=== PATIENT | male | born 1930 | race Caucasian/White ===

== ENCOUNTER 2016-03-17 17:15 | Inpatient (IN) | payer OTHER, BC ==
--- NOTE | 2016-03-17 18:30 | PDOC ---
History of Present Illness - General History Source: Patient, Family Exam Limitations: No Limitations - History of Present Illness Initial Comments: 03/17/16 18:31 Patient is an 85 year old male with significant PMH of Abdominal adhesions, hernias, AAA repair with CABG, Colectomy, Prostate Cancer(status post seating & Green Light Procedure), AAA repair, Lower Esophageal Spasm, GOUT, Artificial Renal Sphincter who presents to ED with cough for 1 week. Patient states he had a cough for last month, was prescribed Clarithromycin several weeks ago by his PCP and improved. Cough has returned this week accompanied by whitish-yellow sputum production in last 2-3 days. Patient notes some mild chest pain exacerbated by heavy fits of coughing and musculoskeletal movement. He has sick contacts at home so decided to go to urgent care today where they noted a bilateral pneumonia and told patient to come to ED. He is currently on Macrobid for a UTI, as per Dr Robles. He denies GI symptoms including diarrhea, constipation, nause, vomiting. <Dar Herbert - Last Filed: 03/17/16 18:47> <Munir Villa - Last Filed: 03/17/16 20:10> - General Chief Complaint: Respiratory Stated Complaint: PCP SENT/PNEUMONIA Time Seen by Provider: 03/17/16 17:45 Past History - Travel Traveled outside of the country in the last 30 days: No Close contact w/someone who was outside of country & ill: No - Past Medical History Anemia: No Asthma: No Cancer: Yes (prostate, colon) Cardiac Disorders: Yes (BYPASS SURGERIES, [place]) CVA: No COPD: No CHF: No Dementia: No Diabetes: No GI Disorders: No Disorders: No HTN: No Hypercholesterolemia: No Liver Disease: No Suicide Attempt (Hx): No Seizures: No Thyroid Disease: No - Surgical History Abdominal Surgery: No Appendectomy: No Cardiac Surgery: Yes (AAA, BYPASS SURGERY) Cholecystectomy: No Lung Surgery: No Neurologic Surgery: No Orthopedic Surgery: No - Immunization History Td Vaccination: Yes TDAP Vaccination: Yes Immunization Up to Date: Yes - Psycho/Social/Smoking Cessation Hx Anxiety: No Suicidal Ideation: No Smoking Status: No Smoking History: Former smoker Have you smoked in the past 12 months: No Number of Cigarettes Smoked Daily: 0 If you are a former smoker, when did you quit?: 35YRS Information on smoking cessation initiated: No Hx Alcohol Use: No Drug/Substance Use Hx: No Substance Use Type: None Hx Substance Use Treatment: No <Dar Herbert - Last Filed: 03/17/16 18:47> <Munir Villa - Last Filed: 03/17/16 20:10> - Past Medical History Allergies/Adverse Reactions: Allergies Allergy/AdvReac Type Severity Reaction Status Date / Time beeswax Allergy Severe Verified 03/17/16 17:22 cephalexin monohydrate Allergy Severe Verified 03/17/16 17:22 [From Keflex] honey Allergy Severe Verified 03/17/16 17:22 Penicillins Allergy Severe Verified 03/17/16 17:22 tetracycline [Tetracycline] Allergy Severe Verified 03/17/16 17:22 ondansetron HCl AdvReac Unknown Verified 03/17/16 17:22 [From Zofran (as hydrochloride)] Home Medications: Ambulatory Orders Febuxostat [Uloric -] 40 mg PO DAILY #0 11/03/12 Pantoprazole Sodium [Protonix -] 40 mg PO DAILY #0 tablet.ec 11/03/12 Aspirin [ASA -] 325 mg PO DAILY 06/24/13 Simvastatin [Zocor -] 40 mg PO DAILY 06/24/13 Propylene Glycol [Systane Balance] 2 drop OU BID 06/14/14 Cilostazol [Pletal -] 100 mg PO BID #30 tablet 06/17/14 Acetaminophen [Tylenol .Regular Strength -] 650 mg PO Q4H PRN #0 tablet Ascorbic Acid [Vitamin C -] 500 mg PO DAILY tablet 07/20/14 Carvedilol [Coreg] 12.5 mg PO DAILY 08/26/14 Cetirizine HCl [Zyrtec -] 10 mg PO DAILY 08/26/14 Fesoterodine Fumarate [Toviaz] 8 mg PO DAILY 08/26/14 Cranberry Fruit Extract [Theracran Hp For Kids] 50 mg PO DAILY 03/17/16 Ferrous Sulfate 325 mg PO DAILY 03/17/16 Review of Systems - Review of Systems Able to Perform ROS?: Yes Is the patient limited Georgian proficient: No Constitutional: Yes: Malaise Respiratory: Yes: Shortness of Breath, Productive cough <Dar Herbert - Last Filed: 03/17/16 18:47> *Physical Exam - Vital Signs Last Vital Signs Temp Pulse Resp BP Pulse Ox 98 F 80 19 128/49 95 03/17/16 17:22 03/17/16 17:22 03/17/16 17:22 03/17/16 17:22 03/17/16 17:22 - Physical Exam General Appearance: Yes: Nourished, Appropriately Dressed HEENT: positive: EOMI, RUBEN, Normal ENT Inspection Neck: positive: Trachea midline, Normal Thyroid, Supple Respiratory/Chest: positive: Other (Bilateral basal crackles noted, some pleuritic chest pain ) Cardiovascular: positive: Regular Rhythm, Regular Rate, S1, S2 <Dar Herbert - Last Filed: 03/17/16 18:47> - Vital Signs Last Vital Signs Temp Pulse Resp BP Pulse Ox 98 F 80 19 128/49 95 03/17/16 17:22 03/17/16 17:22 03/17/16 17:22 03/17/16 17:22 03/17/16 17:22 <Munir Villa - Last Filed: 03/17/16 20:10> ED Treatment Course - LABORATORY CBC & Chemistry Diagram: 03/17/16 18:45 03/17/16 18:45 - ADDITIONAL ORDERS Additional order review: 03/17/16 18:45 RBC 3.34 L MCV 86.7 MCHC 32.4 RDW 17.4 H MPV 7.8 Neutrophils % 77.9 Lymphocytes % 10.3 Monocytes % 5.5 Eosinophils % 6.0 H Basophils % 0.3 <Munir Villa - Last Filed: 03/17/16 20:10> Medical Decision Making - Medical Decision Making 03/17/16 18:47 Ordered CBC, CMP, Blood cultures, influenza swab, & CXR to check for infiltrate. Will also order cardiac profile & EKG as patient states he has occasional chest pain during coughing fits. <Dar Herbert - Last Filed: 03/17/16 18:47> *DC/Admit/Observation/Transfer <Dar Herbert - Last Filed: 03/17/16 18:47> - Discharge Dispostion Admit: Yes <Munir Villa - Last Filed: 03/17/16 20:10> Diagnosis at time of Disposition: Pneumonia Qualifiers: Pneumonia type: due to unspecified organism Laterality: unspecified laterality Lung location: unspecified part of lung Qualified Code(s): J18.9 - Pneumonia, unspecified organism - Discharge Dispostion Condition at time of disposition: Fair
[2016-03-17 19:28] LABS: BASOPHIL 0.3 % (0-2.0); MCH 28.1 pg (25.7-33.7); MCHC 32.4 g/dl (32.0-35.9); MEAN CELL VOLUME 86.7 fl (80-96); MEAN PLT VOLUME 7.8 fl (7.5-11.1); NEUTROPHILS 77.9 % (42.8-82.8); PLATELET COUNT 197 K/MM3 (134-434); RDW 17.4 % (11.9-15.9); WHITE BLOOD COUNT 6.9 K/mm3 (4.0-10.0)
[2016-03-17 19:49] LABS: ALBUMIN 2.7 g/dl (3.4-5.0); BILIRUBIN,TOTAL 0.4 mg/dL (0.2-1.0); CALCIUM 7.7 mg/dL (8.5-10.1); CREATININE 1.4 mg/dL (0.7-1.3); TOT PROT 6.2 g/dl (6.4-8.2)
[2016-03-17 19:54] LABS: TROPONIN I < 0.02 ng/ml (0.00-0.05)
[2016-03-17] MEDS ORDERED: ALBUTEROL SO4 0.083% IH SOL 2.5 MG/3 ML VIAL.NEB. NEB ONE ×2 (19:58→20:12)
[2016-03-17] MEDS ORDERED: LEVOFLOXACIN 500 MG IVPB 100 ML IVPB ONE ×2 (19:58→20:12)
--- NOTE | 2016-03-17 20:06 | PDOC ---
Attending Attestation - Resident Resident Name: Dar Herbert - ED Attending Attestation I have performed the following: I have examined & evaluated the patient, The case was reviewed & discussed with the resident, I agree w/resident's findings & plan, Exceptions are as noted - HPI HPI: 03/17/16 20:05 85-year-old male with history of colon cancer and hypertension presents with increasing shortness of breath, with cough productive of white to yellow sputum that is increased in severity over the past several days despite previous treatment with Zithromax. - Physicial Exam PE: 03/17/16 20:05 Patient is awake and alert, nontoxic appearing, with bibasilar rails and mild intermittent rhonchi. Patient's afebrile and normotensive with oxygen saturation of 96% on room air. - Medical Decision Making 03/17/16 20:05 Patient is an 85-year-old male with bilateral infiltrates on chest x-ray mild congestive consistent with bilateral community-acquired pneumonia. We'll administer Levaquin (patient is an ALLERGIC) we'll administer albuterol nebulizers. Will admit.
[2016-03-17] MEDS ORDERED: SODIUM CHLORIDE 500 ML IV STA (20:18)
[2016-03-17] MEDS ORDERED: ACETAMINOPHEN 325 MG TABLET (FP) PO PRN (20:33)
[2016-03-17] MEDS ORDERED: ALBUTEROL SO4 0.083% IH SOL 2.5 MG/3 ML VIAL.NEB. NEB PRN (20:35)
[2016-03-17] MEDS ORDERED: HEPARIN NA (PORCINE) 5,000 UNITS/ML 1ML VIAL ONE (22:15)
[2016-03-17] MEDS: HEPARIN NA (PORCINE) 5,000 UNITS/ML 1ML VIAL SQ SCH (22:44)
[2016-03-18 00:52] VITALS: BMI 29.6
[2016-03-18] MEDS: ARTIFICIAL TEARS (POLYVINYL ALCOHOL 1.4%) OPTH DROPS OU SCH ×3 (01:02→21:30)
--- NOTE | 2016-03-18 08:27 | HP ---
Admitting History and Physical - Admission History of Present Illness: 85 year old male with significant PMH of Abdominal adhesions, hernias, AAA repair with CABG, Colectomy, Prostate Cancer(status post seating & Green Light Procedure), AAA repair, Lower Esophageal Spasm, GOUT, Artificial Renal Sphincter who presents to ED with cough for 1 week. . Patient notes some mild chest pain exacerbated by heavy fits of coughing and musculoskeletal movement. He has sick contacts at home so decided to go to urgent care today where they noted a bilateral pneumonia and told patient to come to ED. He is currently on Macrobid for a UTI, as per Dr Robles. He denies GI symptoms including diarrhea, constipation, nause, vomiting. - Past Medical History Cardiovascular: Yes: CAD, HTN, HI, Other (PAD) Gastrointestinal: Yes: GERD Renal/: Yes: Renal Inusuff, Cancer (PROSTATE) Rheumatology: Yes: Gout - Past Surgical History Past Surgical History: Yes: AAA Repair, Bypass (LE), CABG - Smoking History Smoking history: Former smoker Have you smoked in the past 12 months: No Aproximately how many cigarettes per day: 0 If you are a former smoker, when did you quit?: 35YRS - Alcohol/Substance Use Hx Alcohol Use: No - Social History ADL: Independent History of Recent Travel: No Home Medications - Allergies Allergies/Adverse Reactions: Allergies Allergy/AdvReac Type Severity Reaction Status Date / Time beeswax Allergy Severe Verified 03/17/16 17:22 cephalexin monohydrate Allergy Severe Verified 03/17/16 17:22 [From Keflex] honey Allergy Severe Verified 03/17/16 17:22 Penicillins Allergy Severe Verified 03/17/16 17:22 tetracycline [Tetracycline] Allergy Severe Verified 03/17/16 17:22 ondansetron HCl AdvReac Unknown Verified 03/17/16 17:22 [From Zofran (as hydrochloride)] - Home Medications Home Medications: Ambulatory Orders Febuxostat [Uloric -] 40 mg PO DAILY #0 11/03/12 Pantoprazole Sodium [Protonix -] 40 mg PO DAILY #0 tablet.ec 11/03/12 Aspirin [ASA -] 325 mg PO DAILY 06/24/13 Simvastatin [Zocor -] 40 mg PO DAILY 06/24/13 Propylene Glycol [Systane Balance] 2 drop OU BID 04/25/15 Cilostazol [Pletal -] 100 mg PO BID #30 tablet 06/17/14 Acetaminophen [Tylenol .Regular Strength -] 650 mg PO Q4H PRN #0 tablet Ascorbic Acid [Vitamin C -] 500 mg PO DAILY tablet 07/20/14 Carvedilol [Coreg] 12.5 mg PO DAILY 08/26/14 Cetirizine HCl [Zyrtec -] 10 mg PO DAILY 08/26/14 Fesoterodine Fumarate [Toviaz] 8 mg PO DAILY 08/26/14 Cranberry Fruit Extract [Theracran Hp For Kids] 50 mg PO DAILY 03/17/16 Ferrous Sulfate 325 mg PO DAILY 03/17/16 Review of Systems - Review of Systems Cardiovascular: reports: Chest Pain (no further chest pain) Respiratory: reports: Cough, SOB, SOB on Exertion Gastrointestinal: denies: Abdominal Pain Genitourinary: reports: Incontinence Neurological: reports: No Symptoms Physical Examination Vital Signs: Vital Signs Temperature 98.4 F 03/18/16 06:00 Pulse Rate 64 03/18/16 06:00 Respiratory Rate 20 03/18/16 06:00 Blood Pressure 118/57 03/18/16 06:00 O2 Sat by Pulse Oximetry (%) 87 L 03/17/16 23:55 Neck: Yes: Supple Cardiovascular: Yes: Regular Rate and Rhythm, Murmur Respiratory: Yes: Rales (at the bases), Rhonchi Gastrointestinal: Yes: Normal Bowel Sounds. No: Tenderness Edema: LLE: Trace, RLE: Trace Neurological: Yes: Alert, Oriented Imaging - Results X-ray: Report Reviewed Problem List - Problems (1) Pneumonia Assessment/Plan: IV ABX ID CONSULT NEBS CT OF CHEST Code(s): J18.9 - PNEUMONIA, UNSPECIFIED ORGANISM Qualifiers: Pneumonia type: due to unspecified organism Laterality: unspecified laterality Lung location: unspecified part of lung Qualified Code(s): J18.9 - Pneumonia, unspecified organism (2) Anemia Assessment/Plan: CHRONIC MONITOR Code(s): D64.9 - ANEMIA, UNSPECIFIED Qualifiers: Anemia type: due to other cause (3) HTN (hypertension) Assessment/Plan: STABLE Code(s): I10 - ESSENTIAL (PRIMARY) HYPERTENSION Qualifiers: Hypertension type: essential hypertension Qualified Code(s): I10 - Essential (primary) hypertension (4) CHF (congestive heart failure) Assessment/Plan: LASIX ECHO BNP Code(s): I50.9 - HEART FAILURE, UNSPECIFIED (5) COPD (chronic obstructive pulmonary disease) Assessment/Plan: ct of chest pulm Code(s): J44.9 - CHRONIC OBSTRUCTIVE PULMONARY DISEASE, UNSPECIFIED
[2016-03-18 08:35] LABS: BASOPHIL 0.7 % (0-2.0); EOSINOPHIL 6.6 % (0-4.5); MCH 28.5 pg (25.7-33.7); MCHC 32.9 g/dl (32.0-35.9); MEAN CELL VOLUME 86.4 fl (80-96); MEAN PLT VOLUME 7.6 fl (7.5-11.1); NEUTROPHILS 73.1 % (42.8-82.8); PLATELET COUNT 185 K/MM3 (134-434); RDW 16.9 % (11.9-15.9); WHITE BLOOD COUNT 6.5 K/mm3 (4.0-10.0)
--- NOTE | 2016-03-18 08:44 | PN ---
[id number] with several week history of cough, started after the New Year ( felt well for [place]) no travel, daughter had bronchitis several weeks ago, UTD on vaccines no fevers, no chills just completed one week of macrobid for UTI no other complaints cough is worse when he lays down cough started after hernia repair received one dose of levaquin in ED normal WBC, no fever cxray with bibasilar infiltrates vs atelectasis with effusion- possible congestion agree with Chest CT, BNP, ECHO suspect CHF possible GERD less likely pneumonia multiple allergies continue levaquin for now pending above workup Problem List - Problems (1) CHF (congestive heart failure) Code(s): I50.9 - HEART FAILURE, UNSPECIFIED (2) Pneumonia Code(s): J18.9 - PNEUMONIA, UNSPECIFIED ORGANISM Qualifiers: Pneumonia type: due to unspecified organism Laterality: unspecified laterality Lung location: unspecified part of lung Qualified Code(s): J18.9 - Pneumonia, unspecified organism (3) Allergy to multiple antibiotics Code(s): Z88.1 - ALLERGY STATUS TO OTHER ANTIBIOTIC AGENTS STATUS
[2016-03-18 09:37] LABS: ALBUMIN 2.8 g/dl (3.4-5.0); ANION GAP 11 (8-16); CALCIUM 7.8 mg/dL (8.5-10.1); CO2 20 mmol/L (21-32); CREATININE 1.4 mg/dL (0.7-1.3); GLUCOSE,RANDOM 83 mg/dL (74-106); SGOT/AST 9 U/L (15-37); SGPT/ALT 14 U/L (12-78)
[2016-03-18 09:41] LABS: ALK PHOS 62 U/L (45-117); BILIRUBIN,TOTAL 0.4 mg/dL (0.2-1.0); TOT PROT 6.3 g/dl (6.4-8.2); TROPONIN I < 0.02 ng/ml (0.00-0.05)
[2016-03-18] MEDS ORDERED: FUROSEMIDE 40 MG/4 ML INJECTABLE VIAL IVPB SCH (10:00)
[2016-03-18 10:02] LABS: FERRITIN 372.129 ng/ml (16.4-293.9)
--- NOTE | 2016-03-18 10:07 | EKG ---
Test Reason : Blood Pressure : / mmHG Vent. Rate : 062 BPM Atrial Rate : 062 BPM P-R Int : 170 ms QRS Dur : 142 ms QT Int : 480 ms P-R-T Axes : 000 187 148 degrees QTc Int : 487 ms POOR DATA QUALITY, INTERPRETATION MAY BE ADVERSELY AFFECTED SINUS RHYTHM RIGHT BUNDLE BRANCH BLOCK T WAVE ABNORMALITY, CONSIDER LATERAL ISCHEMIA ABNORMAL ECG Confirmed by ISRAEL LEIGH MD ([id number]) on 03/18/2016 10:06:45 AM Referred By: Confirmed By:ISRAEL LEIGH MD
[2016-03-18 10:08] LABS: THYROID STIMULATING HORMONE 2.97 uIU/ml (0.358-3.74)
--- NOTE | 2016-03-18 10:43 | CONS ---
DATE OF CONSULTATION: DATE OF DICTATION: 03/18/2016 HISTORY OF PRESENT ILLNESS: This is an 85-year-old man with past medical history of coronary artery disease, who comes to the emergency room complaining of cough over the last several weeks which started after New Years. He was well for the holidays. There was no evidence of heated fevers. The cough is worse when he lies down, it is worse at night. He does note that his coughing started for him after a hernia repair 1 or 2 years ago. He notes chest discomfort when he has a fit of coughing. He is up to date on his vaccines including influenza and pneumococcal vaccine. He lives with his daughter who was sick with bronchitis several weeks ago. He also recently completed a 7-day course of Macrobid which he was given by his urologist. He denies any nausea, vomiting, constipation, or diarrhea. Currently, he has no chest pain, and he is feeling better. He has no hemoptysis. He has some yellow sputum. He has no fevers or chills, and there is no history of any travel. PAST MEDICAL HISTORY: Notable for coronary artery disease, hypertension. He has peripheral arterial disease. He is status post [place]. he has a history of GERD, renal insufficiency, prostate cancer, and gout. SURGICAL HISTORY: Notable for hernia repair. He has had a AAA repair. He has had a CABG. He has had a colectomy for colon cancer. He has a history of prostate cancer, and he has had a GreenLight procedure. FAMILY HISTORY: Noncontributory. SOCIAL HISTORY: He has been for 4 years. He has been living with his daughter for 3 years. 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 He is a former smoker. He quit 35 years ago. ALLERGIES: He is allergic to CEPHALEXIN which gives him a rash, PENICILLIN which gives him hives, and TETRACYCLINE which gives him hives. He is allergic to ZOFRAN, HONEY, and BEES WAX, as well. MEDICATIONS AT HOME: Include Uloric, Protonix, aspirin, Zocor, Pletal, vitamin C, Coreg, Zyrtec, [place], cranberry fruit extract, and ferrous sulfate. REVIEW OF SYSTEMS: Notable for just chest discomfort with cough and mainly increased when he lies flat, which he does not do, he sleeps with several pillows. He has chronic urinary incontinence, which is unchanged. He currently has no burning or urinary discomfort. PHYSICAL EXAMINATION: Vital signs: His temperature is 98.4. He has had no fevers since admission. Blood pressure is 118/57, pulse is 64, respiratory rate is 20, O2 saturation on room air is 87%. HEENT: He is normocephalic. His eyes are anicteric. He has no thrush. Neck: Supple. Lungs: Crackles at both bases. Heart: Regular rate and rhythm. Abdomen: Soft, nontender. He has multiple healed incisions. Extremities: Without edema. LABORATORIES: Notable for a white count of 6.5, hemoglobin 9.8, platelets 185. BUN 31, creatinine 1.4. LFTs are normal. Blood cultures are pending. His influenza screen is negative. Chest x-ray reveals bibasilar consolidations versus atelectasis with possible fluid at the base and mild congestion. SUMMARY: This is an 85-year-old man admitted with cough and chest discomfort who I suspect has congestive heart failure, possible gastroesophageal reflux disease, less likely pneumonia. He has multiple allergies. He was started on Levaquin last night, which I would continue for now. PLAN: Chest CT, BNP, and echocardiogram. His care was discussed with Dr. Sandoval, his PMD. Marixa [id number]
[2016-03-18] MEDS ORDERED: PT OWN MED DRAWER 7, Y5N ONE (10:49)
[2016-03-18] MEDS: guaiFENesin 200 MG/10 ML 10 ML UNIT-DOSE CUPS PO SCH ×3 (10:59→18:01)
[2016-03-18] MEDS: CARVEDILOL 12.5 MG TABLET (FP) PO SCH (11:01)
[2016-03-18] MEDS: ASPIRIN 325 MG TABLET PO SCH (11:01)
[2016-03-18] MEDS: ASCORBIC ACID 500 MG TABLET (FP) PO SCH (11:02)
[2016-03-18] MEDS: PANTOPRAZOLE 40 MG TABLET (FP) PO SCH (11:02)
[2016-03-18] MEDS: FERROUS SO4 325 MG TABLET (FP) PO SCH (11:02)
[2016-03-18] MEDS: LORATADINE 10 MG TABLET PO SCH (11:03)
[2016-03-18] MEDS: HEPARIN NA (PORCINE) 5,000 UNITS/ML 1ML VIAL SQ SCH ×2 (11:10→21:31)
[2016-03-18] MEDS ORDERED: ALBUTEROL SO4 2.5/IPRATROPIUM 0.5 INH SOL 3 ML VIAL.NEB. NEB SCH (12:00)
[2016-03-18] MEDS: FEBUXOSTAT 40 MG TAB PO SCH (12:42)
[2016-03-18] MEDS: TOLTERODINE TARTRATE LA 4 MG CAP.SR.24H (FP) PO SCH (12:42)
--- NOTE | 2016-03-18 13:21 | CONSULT ---
Consult - text type - Consultation Consultation Note: Renal Consult for ELSY vs. CKD This is a 85 year old Gentleman with PMhx of AAA, CAD s/p CABG, Prostate CA s/p seeding, Gout, Artificial urethral sphincter who presented to the ED wit complaints of sob and found to have BUN/Cr of 31/1.4. Pt reports > 4 week history of cough that was not getting better. + sputum production. No Fever or chills. Denies any CKD history. No kidney stones but does have frequent UTI's related to hx of artificial urethral sphincter. The sphincter is now removed and pt is incontinent of urine. No dysuria, flank pain, discolored urine. Denies any LE edema. Denies any NSAID use. No recent contrast exposure. PMhx: as above Allergies: As listed in the medical record Family Hx: NC Social Hx: ROS: as per HPI Home Meds: Medication Instructions Recorded Febuxostat [Uloric -] 40 mg PO DAILY #0 11/03/12 Pantoprazole Sodium [Protonix -] 40 mg PO DAILY #0 tablet.ec 11/03/12 Aspirin [ASA -] 325 mg PO DAILY 06/24/13 Simvastatin [Zocor -] 40 mg PO DAILY 06/24/13 Propylene Glycol [Systane Balance] 2 drop OU BID 06/14/14 Cilostazol [Pletal -] 100 mg PO BID #30 tablet 06/17/14 Acetaminophen [Tylenol .Regular 650 mg PO Q4H PRN #0 tablet 07/20/14 Strength -] Ascorbic Acid [Vitamin C -] 500 mg PO DAILY tablet 07/20/14 Carvedilol [Coreg] 12.5 mg PO DAILY 08/26/14 Cetirizine HCl [Zyrtec -] 10 mg PO DAILY 08/26/14 Fesoterodine Fumarate [Toviaz] 8 mg PO DAILY 08/26/14 Cranberry Fruit Extract [Theracran 50 mg PO DAILY 03/17/16 Hp For Kids] Ferrous Sulfate 325 mg PO DAILY 03/17/16 Vital Signs Temperature 98.4 F 03/18/16 06:00 Pulse Rate 64 03/18/16 06:00 Respiratory Rate 20 03/18/16 06:00 Blood Pressure 118/57 03/18/16 06:00 O2 Sat by Pulse Oximetry (%) 96 03/18/16 09:00 Intake & Output 03/15/16 03/16/16 03/17/16 03/18/16 23:59 23:59 23:59 23:59 Intake Total 120 Balance 120 Weight 178 lb 4 oz Gen: NAD, awake and alert HEENT: NC/AT, MMM, No JVD, Neck Supple CVS: RRR, No M/R Lungs:+ crackles b/l Lower lung fletcher Abd: soft NT/ND, + Abd hernia Ext: No edema, clubbing or cyanosis :No bladder distension Neuro:No foal defects CBC, BMP 03/18/16 08:15 03/18/16 08:15 Current Medications Acetaminophen (Tylenol -) 650 mg PO Q6H PRN PRN Reason: PAIN Albuterol Sulfate (Ventolin 0.083% Nebulizer Soln -) 1 amp NEB Q4H PRN PRN Reason: SHORT OF BREATH/WHEEZING Albuterol/Ipratropium (Duoneb -) 1 amp NEB QIDR [facility] Last Admin: 03/18/16 10:25 Dose: 1 amp Artificial Tears (Artificial Tears) 2 drop OU BID [facility] Last Admin: 03/18/16 12:41 Dose: 2 drop Ascorbic Acid (Vitamin C -) 500 mg PO DAILY [facility] Last Admin: 03/18/16 11:02 Dose: 500 mg Aspirin (Asa -) 325 mg PO DAILY [facility] Last Admin: 03/18/16 11:01 Dose: 325 mg Atorvastatin Calcium (Lipitor -) 20 mg PO [facility] Carvedilol (Coreg -) 12.5 mg PO DAILY [facility] Last Admin: 03/18/16 11:01 Dose: 12.5 mg Cilostazol (Pletal -) 100 mg PO BID [facility] Last Admin: 03/18/16 12:43 Dose: 100 mg Febuxostat (Uloric -) 40 mg PO DAILY [facility] Last Admin: 03/18/16 12:42 Dose: 40 mg Ferrous Sulfate (Feosol -) 325 mg PO DAILY [facility] Last Admin: 03/18/16 11:02 Dose: 325 mg Furosemide (Lasix Injection -) 40 mg IVPB DAILY [facility] Last Admin: 03/18/16 11:02 Dose: 40 mg Guaifenesin (Robitussin -) 10 ml PO Q6HPO [facility] Last Admin: 03/18/16 12:44 Dose: Not Given Heparin Sodium (Porcine) (Heparin -) 5,000 unit SQ BID [facility] Last Admin: 03/18/16 11:10 Dose: 5,000 unit Loratadine (Claritin -) 10 mg PO DAILY [facility] Last Admin: 03/18/16 11:03 Dose: 10 mg Pantoprazole Sodium (Protonix -) 40 mg PO DAILY [facility] Last Admin: 03/18/16 11:02 Dose: 40 mg Tolterodine Tartrate (Detrol La -) 4 mg PO DAILY [facility] Last Admin: 03/18/16 12:42 Dose: 4 mg A/P 85 year old Gentleman with PMhx of AAA, CAD s/p CABG, Prostate CA s/p seeding, Gout, Artificial urethral sphincter who presented to the ED wit complaints of sob and found to have BUN/Cr of 31/1.4. #Acute Kidney Injury vs. CKD Etiology of ELSY -? renal hypoperfusion (pre-renal vs. 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
[2016-03-18 15:40] LABS: URINE APPEARANCE SLCLOUDY; URINE BILIRUBIN NEGATIVE (NEGATIVE); URINE COLOR COLORLESS; URINE GLUCOSE (UA) NEGATIVE (NEGATIVE); URINE KETONE NEGATIVE (NEGATIVE); URINE NITRITE NEGATIVE (NEGATIVE); URINE PROTEIN NEGATIVE (NEGATIVE); URINE UROBILINOGEN NEGATIVE E.U./dl (0.2-1.0)
[2016-03-18 15:42] LABS: URINE BLOOD 1+ (NEGATIVE); URINE LEUK ESTERASE 1+ (NEGATIVE)
[2016-03-18 15:43] LABS: URINE HYALINE CAST 2 /lpf; URINE RBC 4 /hpf (0-3); URINE WBC 28 /hpf (3-5)
--- NOTE | 2016-03-18 16:38 | CON.PULM ---
Consult Consult Specialty:: PULMONARY Referred by:: PMD Reason for Consultation:: SOB - History of Present Illness Chief Complaint: SOB/COUGH History of Present Illness: Patient is an 85 year old male with significant PMH of Abdominal adhesions, hernias, AAA repair with CABG, Colectomy, Prostate Cancer(status post seating & Green Light Procedure),, Lower Esophageal Spasm, GOUT, Artificial Rectal Sphincter who presents to ED with cough for 1 week. Patient states he had a cough for last month, was prescribed Clarithromycin several weeks ago by his PCP and improved. Cough has returned this week accompanied by whitish-yellow sputum production in last 2-3 days. Patient notes some mild chest pain exacerbated by heavy fits of coughing and musculoskeletal movement. He has sick contacts at home so decided to go to urgent care today where they noted a bilateral pneumonia and told patient to come to ED. He is currently on Macrobid for a UTI, as per Dr Robles. He denies GI symptoms including diarrhea, constipation, nause, vomiting. 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 No: O2 Dependent Gastrointestinal: Yes: GERD Renal/: Yes: Renal Inusuff, Cancer (PROSTATE) Rheumatology: Yes: Gout - Past Surgical History Past Surgical History: Yes: AAA Repair, Bypass (LE), CABG - Alcohol/Substance Use Hx Alcohol Use: No - Smoking History Smoking history: Former smoker Have you smoked in the past 12 months: No Aproximately how many cigarettes per day: 0 If you are a former smoker, when did you quit?: 35YRS - Social History Usual Living Arrangement: Alone ADL: Independent Place of : [facility] History of Recent Travel: No Home Medications - Allergies Allergies/Adverse Reactions: Allergies Allergy/AdvReac Type Severity Reaction Status Date / Time beeswax Allergy Severe Verified 03/17/16 17:22 cephalexin monohydrate Allergy Severe Verified 03/17/16 17:22 [From Keflex] honey Allergy Severe Verified 03/17/16 17:22 Penicillins Allergy Severe Verified 03/17/16 17:22 tetracycline [Tetracycline] Allergy Severe Verified 03/17/16 17:22 ondansetron HCl AdvReac Unknown Verified 03/17/16 17:22 [From Zofran (as hydrochloride)] - Home Medications Home Medications: Ambulatory Orders Febuxostat [Uloric -] 40 mg PO DAILY #0 11/03/12 Pantoprazole Sodium [Protonix -] 40 mg PO DAILY #0 tablet.ec 11/03/12 Aspirin [ASA -] 325 mg PO DAILY 06/24/13 Simvastatin [Zocor -] 40 mg PO DAILY 06/24/13 Propylene Glycol [Systane Balance] 2 drop OU BID 06/14/14 Cilostazol [Pletal -] 100 mg PO BID #30 tablet 06/17/14 Acetaminophen [Tylenol .Regular Strength -] 650 mg PO Q4H PRN #0 tablet Ascorbic Acid [Vitamin C -] 500 mg PO DAILY tablet 07/20/14 Carvedilol [Coreg] 12.5 mg PO DAILY 08/26/14 Cetirizine HCl [Zyrtec -] 10 mg PO DAILY 08/26/14 Fesoterodine Fumarate [Toviaz] 8 mg PO DAILY 08/26/14 Cranberry Fruit Extract [Theracran Hp For Kids] 50 mg PO DAILY 03/17/16 Ferrous Sulfate 325 mg PO DAILY 03/17/16 Family Disease History - Family Disease History Family History: Unremarkable Review of Systems - Review of Systems Cardiovascular: reports: Chest Pain (with cough) Respiratory: reports: Cough, Exercise Intolerance, SOB, SOB on Exertion. denies : Hemoptysis, Wheezing Physical Exam Vital Sings: Vital Signs Temperature 97.6 F 03/18/16 15:27 Pulse Rate 65 03/18/16 15:27 Respiratory Rate 20 03/18/16 15:27 Blood Pressure 112/51 03/18/16 15:27 O2 Sat by Pulse Oximetry (%) 96 03/18/16 09:00 Constitutional: Yes: Calm Eyes: Yes: EOM Intact HENT: Yes: Normocephalic Neck: Yes: Trachea Midline Cardiovascular: Yes: Regular Rate and Rhythm, S1, S2 Respiratory: Yes: Diminished, Rales (bases) Gastrointestinal: Yes: Soft Edema: LLE: Trace, RLE: 1+ Integumentary: Yes: WNL Neurological: Yes: WNL Psychiatric: Yes: WNL Labs: CBC, BMP 03/18/16 08:15 03/18/16 08:15 rest reviewed Imaging - Results Chest X-ray: Image Reviewed Cat Scan: Image Reviewed Problem List - Problems (1) CHF (congestive heart failure) Code(s): I50.9 - HEART FAILURE, UNSPECIFIED (2) COPD (chronic obstructive pulmonary disease) Code(s): J44.9 - CHRONIC OBSTRUCTIVE PULMONARY DISEASE, UNSPECIFIED (3) Anemia Code(s): D64.9 - ANEMIA, UNSPECIFIED Qualifiers: Anemia type: due to other cause (4) Cough Code(s): R05 - COUGH Assessment/Plan SEVERE COPD SECONDARY TO SMOKING IN PAST MULTIPLE MEDICAL HX LISTED NO CT EVIDENCE OF PNEUMONIA WOULD START ICS/LABA/LAMA/COLLIN PRN WOULD REALLY BENEFIT FROM OUTPATIENT PULMONARY REHAB NEEDS OUTPATIENT PFT'S Dorinda RODRIGUEZ MD
[2016-03-18] MEDS ORDERED: LEVOFLOXACIN 250 MG IVPB 50 ML IVPB SCH (18:15)
[2016-03-18] MEDS: BUDESONIDE/FORMETEROL FUMARATE 80/4.5 mcg INHALER IH SCH (21:33)
[2016-03-18] MEDS ORDERED: ATORVASTATIN CA 20 MG TABLET (FP) PO SCH (22:00)
[2016-03-18] MEDS: ALBUTEROL SO4 0.083% IH SOL 2.5 MG/3 ML VIAL.NEB. NEB SCH (22:45)
[2016-03-19] MEDS: guaiFENesin 200 MG/10 ML 10 ML UNIT-DOSE CUPS PO SCH ×2 (01:05→06:12)
[2016-03-19 01:33] VITALS: TEMP 98
[2016-03-19 06:07] LABS: SERUM IRON 34 ug/dL (38-169); TOTAL IRON BINDING CAPACITY 166 ug/dL (250-450); UIBC 132 ug/dL (111-343)
[2016-03-19] MEDS: ALBUTEROL SO4 0.083% IH SOL 2.5 MG/3 ML VIAL.NEB. NEB SCH (07:23)
[2016-03-19 07:44] LABS: MCHC 32.7 g/dl (32.0-35.9); MEAN CELL VOLUME 85.8 fl (80-96); MEAN PLT VOLUME 7.7 fl (7.5-11.1); PLATELET COUNT 177 K/MM3 (134-434); RDW 16.9 % (11.9-15.9); WHITE BLOOD COUNT 5.2 K/mm3 (4.0-10.0)
[2016-03-19 07:45] LABS: BASOPHIL 0.7 % (0-2.0); EOSINOPHIL 7.7 % (0-4.5); NEUTROPHILS 69.1 % (42.8-82.8)
--- NOTE | 2016-03-19 09:34 | DS ---
Physical Examination Vital Signs: Vital Signs Temperature 98 F 03/19/16 01:32 Pulse Rate 78 03/19/16 01:32 Respiratory Rate 18 03/19/16 01:32 Blood Pressure 123/54 03/19/16 01:32 O2 Sat by Pulse Oximetry (%) 98 03/18/16 20:50 Labs: CBC, BMP 03/19/16 06:00 03/19/16 06:00 Discharge Summary Reason For Visit: PNEUMONIA Current Active Problems Allergy to multiple antibiotics (Acute) CHF (congestive heart failure) (Acute) COPD (chronic obstructive pulmonary disease) (Acute) Pneumonia (Acute) Hospital Course: 85 year old male with significant PMH of Abdominal adhesions, hernias, AAA repair with CABG, Colectomy, Prostate Cancer(status post seating & Green Light Procedure), AAA repair, Lower Esophageal Spasm, GOUT, Artificial Renal Sphincter who presents to ED with cough for 1 week. . Patient notes some mild chest pain exacerbated by heavy fits of coughing and musculoskeletal movement. He has sick contacts at home so decided to go to urgent care today where they noted a bilateral pneumonia and told patient to come to ED. He is currently on Macrobid for a UTI, as per Dr Robles. He denies GI symptoms including diarrhea, constipation, nause, vomiting. - Past Medical History Cardiovascular: Yes: CAD, HTN, [place], Other (PAD) Gastrointestinal: Yes: GERD Renal/: Yes: Renal Inusuff, Cancer (PROSTATE) Rheumatology: Yes: Gout - Past Surgical History Past Surgical History: Yes: AAA Repair, Bypass (LE), CABG - Smoking History Smoking history: Former smoker - Problems (1) Pneumonia Assessment/Plan: IV ABX ID CONSULT NEBS CT OF CHEST Code(s): J18.9 - PNEUMONIA, UNSPECIFIED ORGANISM Qualifiers: Pneumonia type: due to unspecified organism Laterality: unspecified laterality Lung location: unspecified part of lung Qualified Code(s): J18.9 - Pneumonia, unspecified organism (2) Anemia Assessment/Plan: CHRONIC MONITOR Code(s): D64.9 - ANEMIA, UNSPECIFIED Qualifiers: Anemia type: due to other cause (3) HTN (hypertension) Assessment/Plan: STABLE Code(s): I10 - ESSENTIAL (PRIMARY) HYPERTENSION Qualifiers: Hypertension type: essential hypertension Qualified Code(s): I10 - Essential (primary) hypertension (4) CHF (congestive heart failure) Assessment/Plan: LASIX ECHO BNP Code(s): I50.9 - HEART FAILURE, UNSPECIFIED (5) COPD (chronic obstructive pulmonary disease) Assessment/Plan: ct of chest NOTED--SIGNIFICANT CHANGES--PULM NOTED--OUTPATIENT F/U Code(s): J44.9 - CHRONIC OBSTRUCTIVE PULMONARY DISEASE, UNSPECIFIED Condition: Improved - Instructions Referrals: Magali Sandoval MD [Primary Care Provider] - 1 Week Disposition: HOME - Home Medications Comprehensive Discharge Medication List: Ambulatory Orders Febuxostat [Uloric -] 40 mg PO DAILY #0 11/03/12 Pantoprazole Sodium [Protonix -] 40 mg PO DAILY #0 tablet.ec 11/03/12 Aspirin [ASA -] 325 mg PO DAILY 06/24/13 Simvastatin [Zocor -] 40 mg PO DAILY 06/24/13 Propylene Glycol [Systane Balance] 2 drop OU BID 06/14/14 Cilostazol [Pletal -] 100 mg PO BID #30 tablet 06/17/14 Acetaminophen [Tylenol .Regular Strength -] 650 mg PO Q4H PRN #0 tablet Ascorbic Acid [Vitamin C -] 500 mg PO DAILY tablet 07/20/14 Carvedilol [Coreg] 12.5 mg PO DAILY 08/26/14 Cetirizine HCl [Zyrtec -] 10 mg PO DAILY 08/26/14 Fesoterodine Fumarate [Toviaz] 8 mg PO DAILY 08/26/14 Cranberry Fruit Extract [Theracran Hp For Kids] 50 mg PO DAILY 03/17/16 Ferrous Sulfate 325 mg PO DAILY 03/17/16 Albuterol 2.5/Ipratropium 0.5 [Duoneb -] 1 amp NEB QIDR #120 amp 03/19/16 Fluticasone/Salmeterol [Advair 250-50 Diskus] 1 each IH BID #1 blst.w.dev Furosemide [Lasix -] 20 mg PO DAILY #30 tablet 03/19/16 Guaifenesin [Robitussin -] 10 ml PO Q6HPO cup 03/19/16 Levofloxacin [Levaquin -] 250 mg PO DAILY #5 tablet 03/19/16 Nebulizer Accessories [A.i.r.s. Nebulizer] 1 each QID #2 kit 03/19/16 Nebulizer [Aeroeclipse II] 1 each QID #1 each 03/19/16 Tiotropium [place] [Spiriva] 1 puff IH DAILY #1 inh 03/19/16
[2016-03-19] MEDS: HEPARIN NA (PORCINE) 5,000 UNITS/ML 1ML VIAL SQ SCH (09:50)
[2016-03-19] MEDS: LORATADINE 10 MG TABLET PO SCH (09:50)
[2016-03-19] MEDS: FERROUS SO4 325 MG TABLET (FP) PO SCH (09:50)
[2016-03-19] MEDS: PANTOPRAZOLE 40 MG TABLET (FP) PO SCH (09:50)
[2016-03-19] MEDS: ASCORBIC ACID 500 MG TABLET (FP) PO SCH (09:50)
[2016-03-19] MEDS: CARVEDILOL 12.5 MG TABLET (FP) PO SCH (09:50)
[2016-03-19] MEDS: ASPIRIN 325 MG TABLET PO SCH (09:50)
[2016-03-19] MEDS: ARTIFICIAL TEARS (POLYVINYL ALCOHOL 1.4%) OPTH DROPS OU SCH (09:51)
[2016-03-19] MEDS: TOLTERODINE TARTRATE LA 4 MG CAP.SR.24H (FP) PO SCH (09:51)
[2016-03-19] MEDS: BUDESONIDE/FORMETEROL FUMARATE 80/4.5 mcg INHALER IH SCH (09:54)
[2016-03-19] MEDS: FEBUXOSTAT 40 MG TAB PO SCH (09:54)
[2016-03-19] MEDS ORDERED: TIOTROPIUM BROMIDE 18 MCG/INH (DEVICE W/ 5 CAPSULES) IH SCH (10:00)
--- NOTE | 2016-03-19 10:44 | PN ---
Progress Note (short form) - Note Progress Note: PULMONARY IMPROVED ON BRONCHODILATORS VSS ANICTERIC DISTANT LUNG SOUNDS S1S2 BS+ OBESE NO EDEMA LABS/MEDS/NOTES REVIEWED SEVERE COPD SECONDARY TO SMOKING MULTIPLE MEDICAL HX LISTED NO CT EVIDENCE OF PNEUMONIA HAVE STARTED ICS/LABA/LAMA/COLLIN PRN WOULD REALLY BENEFIT FROM OUTPATIENT PULMONARY REHAB NEEDS OUTPATIENT PFT'S HAVE PROVIDED PATIENT WITH CONTACT INFORMATION FOR PULMONARY OUTPATIENT R MICHAEL ROACH Problem List - Problems (1) CHF (congestive heart failure) Code(s): I50.9 - HEART FAILURE, UNSPECIFIED (2) COPD (chronic obstructive pulmonary disease) Code(s): J44.9 - CHRONIC OBSTRUCTIVE PULMONARY DISEASE, UNSPECIFIED (3) Anemia Code(s): D64.9 - ANEMIA, UNSPECIFIED Qualifiers: Anemia type: due to other cause (4) Cough Code(s): R05 - COUGH
--- NOTE | 2016-03-19 11:59 | PN ---
Progress Note (short form) - Note Progress Note: Renal Follow up for ELSY/CKD Pt seen and examined at the bedside no acute complaints no chest pain or sob no fever or chills Vital Signs Temperature 98 F 03/19/16 01:32 Pulse Rate 78 03/19/16 01:32 Respiratory Rate 18 03/19/16 01:32 Blood Pressure 123/54 03/19/16 01:32 O2 Sat by Pulse Oximetry (%) 98 03/18/16 20:50 Intake & Output 03/16/16 03/17/16 03/18/16 03/19/16 23:59 23:59 23:59 23:59 Intake Total 620 Balance 620 Weight 178 lb 4 oz Gen: NAD, awake and alert HEENT: NC/AT, MMM, No JVD, Neck Supple CVS: RRR, No M/R Lungs:+ crackles b/l Lower lung fletcher Abd: soft NT/ND, + Abd hernia Ext: No edema, clubbing or cyanosis :No bladder distension Neuro:No foal defects CBC, BMP 03/19/16 06:00 03/19/16 06:00 Current Medications Acetaminophen (Tylenol -) 650 mg PO Q6H PRN PRN Reason: PAIN Albuterol Sulfate (Ventolin 0.083% Nebulizer Soln -) 1 amp NEB TIDR [facility] Last Admin: 03/19/16 07:23 Dose: 1 amp Artificial Tears (Artificial Tears) 2 drop OU BID [facility] Last Admin: 03/19/16 09:51 Dose: 2 drop Ascorbic Acid (Vitamin C -) 500 mg PO DAILY [facility] Last Admin: 03/19/16 09:50 Dose: 500 mg Aspirin (Asa -) 325 mg PO DAILY [facility] Last Admin: 03/19/16 09:50 Dose: 325 mg Atorvastatin Calcium (Lipitor -) 20 mg PO HS [facility] Last Admin: 03/18/16 21:32 Dose: 20 mg Budesonide/Formoterol Fumarate (Symbicort 80/4.5mcg -) 2 puff IH BID [facility] Last Admin: 03/19/16 09:54 Dose: 2 puff Carvedilol (Coreg -) 12.5 mg PO DAILY [facility] Last Admin: 03/19/16 09:50 Dose: 12.5 mg Cilostazol (Pletal -) 100 mg PO BID [facility] Last Admin: 03/19/16 09:51 Dose: 100 mg Febuxostat (Uloric -) 40 mg PO DAILY [facility] Last Admin: 03/19/16 09:54 Dose: 40 mg Ferrous Sulfate (Feosol -) 325 mg PO DAILY [facility] Last Admin: 03/19/16 09:50 Dose: 325 mg Guaifenesin (Robitussin -) 10 ml PO Q6HPO [facility] Last Admin: 03/19/16 06:12 Dose: 10 ml Heparin Sodium (Porcine) (Heparin -) 5,000 unit SQ BID [facility] Last Admin: 03/19/16 09:50 Dose: Not Given Loratadine (Claritin -) 10 mg PO DAILY [facility] Last Admin: 03/19/16 09:50 Dose: 10 mg Pantoprazole Sodium (Protonix -) 40 mg PO DAILY [facility] Last Admin: 03/19/16 09:50 Dose: 40 mg Tiotropium [place] (Spiriva -) 1 puff IH DAILY [facility] Last Admin: 03/19/16 09:53 Dose: 1 puff Tolterodine Tartrate (Detrol La -) 4 mg PO DAILY [facility] Last Admin: 03/19/16 09:51 Dose: 4 mg A/P 85 year old Gentleman with PMhx of AAA, CAD s/p CABG, Prostate CA s/p seeding, Gout, Artificial urethral sphincter who presented to the ED wit complaints of sob and found to have BUN/Cr of 31/1.4. #Acute Kidney Injury vs. CKD Renal function essentially stable this admission Renal US showed normal kidneys with normal texture w/o obstruction Urine studies showed + proteinuria ok for discharge with outpatient follow up Repeat labs this up coming week Will need to check SPEP/UPEP #SOB from COPD +/- CHF CT scan is consistent with emphysema continue management as per pulmonary #Metabolic acidosis with normal anion gap improved today Sancho Cespedes DO
[2016-03-19 17:19] VITALS: BP 129/57; PULSE 83
== END 2016-03-19 14:35 | disposition home or self-care (01) | DRG 194 ==
LOC: JER 17:15 → JERBED 20:48 → J7W 23:46
PROVIDERS: ADMIT Family Medicine; ATTEND Family Medicine
DX: J18.9 Pneumonia, unspecified organism (principal); N17.9 Acute kidney failure, unspecified; E87.2 Acidosis; N39.0 Urinary tract infection, site not specified; I25.10 Atherosclerotic heart disease of native coronary artery without angina pectoris; Z95.1 Presence of aortocoronary bypass graft; J44.9 Chronic obstructive pulmonary disease, unspecified; D64.9 Anemia, unspecified; K21.9 Gastro-esophageal reflux disease without esophagitis; Z87.891 Personal history of nicotine dependence; M10.9 Gout, unspecified; I10 Essential (primary) hypertension; I50.9 Heart failure, unspecified
CPT/HCPCS: 36415; 71010-TC; 71250-TC; 76775-TC; 76856-TC; 80053; 81003; 81015; 82436; 82550; 82570; 82607; 82728; 83540; 83550; 83735; 83880; 84100; 84133; 84156; 84300; 84443; 84484; 84540; 85025; 87040; 87254; 87804; 93005; 93010; 93306-TC; 94640; 99283-25; J1644

== ENCOUNTER 2016-07-05 07:53 | Inpatient (IN) | payer OTHER, BC ==
[2016-07-05 08:28] VITALS: BMI 27.9
--- NOTE | 2016-07-05 09:27 | PDOC ---
History of Present Illness - General Chief Complaint: Urinary Problem Stated Complaint: SENT BY PCP Time Seen by Provider: 07/05/16 08:37 History Source: Patient, Other (daughter) Exam Limitations: No Limitations - History of Present Illness Travel History: No Initial Comments: 07/05/16 10:17 86-year-old male presents to the emergency room with complaints of urinary dribbling, mild suprapubic pressure, burning at the urethra site and urinary frequency. Patient is followed by Dr. Perez who is scheduling patient for urethral dilatation secondary to stricture. Patient also with history of prostate CA with greenlight procedure done 4 years ago and has had recent and recurrent UTIs not responding to Bactrim which patient normally responded to in the past. Patient denies fever, chills, nausea, weakness, change in appetite, or abdominal distention. Timing/Duration: reports: getting worse Quality: reports: moderate, fullness Abdominal Pain Onset Location: reports: suprapubic Pain Radiation: reports: no radiation Activities at Onset: reports: none Aggravating Factors: improves with: None Alleviating Factors: improves with: None Past History - Past Medical History Allergies/Adverse Reactions: Allergies Allergy/AdvReac Type Severity Reaction Status Date / Time beeswax Allergy Severe Verified 07/05/16 08:29 cephalexin monohydrate Allergy Severe Verified 07/05/16 08:29 [From Keflex] honey Allergy Severe Verified 07/05/16 08:29 Penicillins Allergy Severe Verified 07/05/16 08:29 tetracycline [Tetracycline] Allergy Severe Verified 07/05/16 08:29 Nitrofuran Analogues Allergy Verified 07/05/16 08:29 ondansetron HCl AdvReac Unknown Verified 07/05/16 08:29 [From Zofran (as hydrochloride)] Home Medications: Ambulatory Orders Febuxostat [Uloric -] 40 mg PO DAILY #0 11/03/12 Pantoprazole Sodium [Protonix -] 40 mg PO DAILY #0 tablet.ec 11/03/12 Simvastatin [Zocor -] 40 mg PO DAILY 06/24/13 Propylene Glycol [Systane Balance] 2 drop OU BID 06/14/14 Cilostazol [Pletal -] 100 mg PO BID #30 tablet 06/17/14 Ascorbic Acid [Vitamin C -] 500 mg PO DAILY tablet 07/20/14 Carvedilol [Coreg] 12.5 mg PO DAILY 08/26/14 Cetirizine HCl [Zyrtec -] 10 mg PO DAILY 08/26/14 Fesoterodine Fumarate [Toviaz] 8 mg PO DAILY 08/26/14 Cranberry Fruit Extract [Theracran Hp For Kids] 50 mg PO DAILY 03/17/16 Albuterol 2.5/Ipratropium 0.5 [Duoneb -] 1 amp NEB QIDR #120 amp 03/19/16 Fluticasone/Salmeterol [Advair 250-50 Diskus] 1 each IH BID #1 blst.w.dev Nebulizer Accessories [A.i.r.s. Nebulizer] 1 each MC QID #2 kit 03/19/16 Tiotropium [place] [Spiriva] 1 puff IH DAILY #1 inh 03/19/16 Aspirin [ASA -] 81 mg PO DAILY 07/05/16 Anemia: No Asthma: No Cancer: Yes (prostate, colon) Cardiac Disorders: Yes (BYPASS SURGERIES, OR) CVA: No COPD: No CHF: No Dementia: No Diabetes: No GI Disorders: No Disorders: No HTN: No Hypercholesterolemia: Yes Liver Disease: No Suicide Attempt (Hx): No Seizures: No Thyroid Disease: No Other medical history: GOUT - Surgical History Abdominal Surgery: Yes (HERNIA, COLOCTOMY) Appendectomy: No Cardiac Surgery: Yes (AAA, BYPASS SURGERY) Cholecystectomy: No Lung Surgery: No Neurologic Surgery: No Orthopedic Surgery: No - Immunization History Td Vaccination: Yes TDAP Vaccination: Yes Immunization Up to Date: Yes - Psycho/Social/Smoking Cessation Hx Anxiety: No Suicidal Ideation: No Smoking Status: No Smoking History: Former smoker Have you smoked in the past 12 months: No Number of Cigarettes Smoked Daily: 0 If you are a former smoker, when did you quit?: 35YRS Information on smoking cessation initiated: No Hx Alcohol Use: No Drug/Substance Use Hx: No Substance Use Type: None Hx Substance Use Treatment: No Patient Lives Alone: No Review of Systems - Review of Systems Able to Perform ROS?: Yes Constitutional: No: Symptoms Reported HEENTM: No: Symptoms Reported Respiratory: No: Symptoms reported Cardiac (ROS): No: Symptoms Reported ABD/GI: Yes: Abdominal cramping : Yes: Burning, Frequency, Incontinence, Urgency. No: Flank Pain Musculoskeletal: No: Symptoms Reported Integumentary: No: Symptoms Reported Neurological: No: Symptoms reported *Physical Exam - Vital Signs Last Vital Signs Temp Pulse Resp BP Pulse Ox 98.3 F 70 18 122/54 96 07/05/16 08:23 07/05/16 08:23 07/05/16 08:23 07/05/16 08:23 07/05/16 08:23 - Physical Exam General Appearance: Yes: Nourished, Appropriately Dressed. No: Apparent Distress HEENT: positive: EOMI, RUBEN. negative: Pale Conjunctivae Neck: positive: Supple Respiratory/Chest: positive: Lungs Clear, Normal Breath Sounds. negative: Respiratory Distress, Accessory Muscle Use Cardiovascular: positive: Regular Rhythm, Regular Rate. negative: Murmur Gastrointestinal/Abdominal: positive: Soft, Tenderness (mild suprapubic) Male Genitalia: positive: normal genitalia Musculoskeletal: negative: CVA Tenderness Extremity: positive: Normal Capillary Refill Integumentary: positive: Normal Color, Warm, Moist Neurologic: positive: Motor Strength 5/5 (ambulatory) ED Treatment Course - LABORATORY CBC & Chemistry Diagram: 07/05/16 09:40 07/05/16 09:40 Medical Decision Making - Medical Decision Making 07/05/16 10:21 Patient sent in by Dr. Perez for IV antibiotics and infectious disease referral. Patient now with UTI not responding to Bactrim which he normally responds to. Patient also symptomatic and will be admitted to Dr. Sandoval with consultation to Dr. Hughes and Dr. Perez. 07/05/16 11:23 Laboratory Tests 03/18/16 03/19/16 07/05/16 08:15 06:00 09:40 WBC 5.2 Hgb 10.1 L Hct 30.4 L Plt Count 170 Neutrophils % 69.0 INR Sodium BUN Creatinine 1.4 H 1.6 H Creat Clearance w eGFR Random Glucose 07/05/16 07/05/16 09:40 09:40 WBC Hgb Hct Plt Count Neutrophils % INR 1.17 H Sodium 140 BUN 38 H D Creatinine 2.0 H D Creat Clearance w eGFR 31.69 Random Glucose 109 H *DC/Admit/Observation/Transfer Diagnosis at time of Disposition: Failure of outpatient treatment UTI (urinary tract infection) Qualifiers: Urinary tract infection type: site unspecified Hematuria presence: without hematuria Qualified Code(s): N39.0 - Urinary tract infection, site not specified - Discharge Dispostion Admit: Yes
[2016-07-05 10:04] LABS: BASOPHIL 1.1 % (0-2.0); EOSINOPHIL 7.9 % (0-4.5); MCH 28.7 pg (25.7-33.7); MCHC 33.1 g/dl (32.0-35.9); MEAN CELL VOLUME 86.8 fl (80-96); MEAN PLT VOLUME 7.8 fl (7.5-11.1); PLATELET COUNT 170 K/MM3 (134-434); RDW 16.2 % (11.9-15.9); WHITE BLOOD COUNT 5.2 K/mm3 (4.0-10.0)
[2016-07-05 10:21] LABS: INR 1.17 (0.82-1.09); PROTHROMBIN TIME (PATIENT) 12.9 SEC (9.98-11.88)
--- NOTE | 2016-07-05 10:34 | HP ---
Admitting History and Physical - Primary Care Physician PCP: Magali Sandoval - Admission Chief Complaint: sent in by dr grant for failure of po abx for dyuria History of Present Illness: 85 year old male with significant PMH of Abdominal adhesions, hernias, AAA repair with CABG, Colectomy, Prostate Cancer(status post seating & Green Light Procedure), AAA repair, Lower Esophageal Spasm, GOUT, Artificial Renal Sphincter who presents to ED with dyuria and hematuria for one week. last week patient was started on bactrim and stil has dyuria. he is planned for urethral sphincter dilatation by urology next week and saw urology yesterday and was advised to come to ER as he is still having dyuria and hematuria despite po abx and patient has multiple allergies.he has allergy to cephalosporin, PCN, nitrofuratoin and tetracyclines. no fever at home History Source: Patient, Family Member - Past Medical History Cardiovascular: Yes: CAD, HTN, AR, Other (PAD) Pulmonary: Yes: COPD. No: O2 Dependent Gastrointestinal: Yes: GERD Renal/: Yes: Renal Inusuff, Cancer (PROSTATE) Rheumatology: Yes: Gout - Past Surgical History Past Surgical History: Yes: AAA Repair, Bypass (LE), CABG - Smoking History Smoking history: Former smoker Have you smoked in the past 12 months: No Aproximately how many cigarettes per day: 0 If you are a former smoker, when did you quit?: 35YRS - Alcohol/Substance Use Hx Alcohol Use: No - Social History ADL: Independent History of Recent Travel: No Home Medications - Allergies Allergies/Adverse Reactions: Allergies Allergy/AdvReac Type Severity Reaction Status Date / Time beeswax Allergy Severe Verified 07/05/16 08:29 cephalexin monohydrate Allergy Severe Verified 07/05/16 08:29 [From Keflex] honey Allergy Severe Verified 07/05/16 08:29 Penicillins Allergy Severe Verified 07/05/16 08:29 tetracycline [Tetracycline] Allergy Severe Verified 07/05/16 08:29 Nitrofuran Analogues Allergy Verified 07/05/16 08:29 ondansetron HCl AdvReac Unknown Verified 07/05/16 08:29 [From Zofran (as hydrochloride)] - Home Medications Home Medications: Ambulatory Orders Febuxostat [Uloric -] 40 mg PO DAILY #0 11/03/12 Pantoprazole Sodium [Protonix -] 40 mg PO DAILY #0 tablet.ec 11/03/12 Simvastatin [Zocor -] 40 mg PO DAILY 06/24/13 Propylene Glycol [Systane Balance] 2 drop OU BID 06/14/14 Cilostazol [Pletal -] 100 mg PO BID #30 tablet 06/17/14 Ascorbic Acid [Vitamin C -] 500 mg PO DAILY tablet 07/20/14 Carvedilol [Coreg] 12.5 mg PO DAILY 08/26/14 Cetirizine HCl [Zyrtec -] 10 mg PO DAILY 08/26/14 Fesoterodine Fumarate [Toviaz] 8 mg PO DAILY 08/26/14 Cranberry Fruit Extract [Theracran Hp For Kids] 50 mg PO DAILY 03/17/16 Albuterol 2.5/Ipratropium 0.5 [Duoneb -] 1 amp NEB QIDR #120 amp 03/19/16 Fluticasone/Salmeterol [Advair 250-50 Diskus] 1 each IH BID #1 blst.w.dev Nebulizer Accessories [A.i.r.s. Nebulizer] 1 each QID #2 kit 03/19/16 Tiotropium [place] [Spiriva] 1 puff IH DAILY #1 inh 03/19/16 Aspirin [ASA -] 81 mg PO DAILY 07/05/16 Review of Systems - Review of Systems Genitourinary: reports: Burning, Dysuria, Hematuria Physical Examination Vital Signs: Vital Signs Temperature 98.3 F 07/05/16 08:23 Pulse Rate 70 07/05/16 08:23 Respiratory Rate 18 07/05/16 08:23 Blood Pressure 122/54 07/05/16 08:23 O2 Sat by Pulse Oximetry (%) 96 07/05/16 08:23 Constitutional: Yes: Calm Neck: Yes: Trachea Midline Cardiovascular: Yes: Regular Rate and Rhythm, S1, S2 Respiratory: Yes: CTA Bilaterally Gastrointestinal: Yes: Normal Bowel Sounds, Soft, Other (surgical scars) Extremities: Yes: Other (varicose veins) Labs: CBC, BMP 07/05/16 09:40 Problem List - Problems (1) Failure of outpatient treatment Assessment/Plan: ID eval urine cultures multiple allergies urolgoy eval Code(s): Z78.9 - OTHER SPECIFIED HEALTH STATUS (2) UTI (urinary tract infection) Assessment/Plan: see above Code(s): N39.0 - URINARY TRACT INFECTION, SITE NOT SPECIFIED Qualifiers: Urinary tract infection type: site unspecified Hematuria presence: without hematuria Qualified Code(s): N39.0 - Urinary tract infection, site not specified (3) Urethral stricture Assessment/Plan: cardio clearance urology for dilatation elevated renal function sec to outlet obstruction Code(s): N35.9 - URETHRAL STRICTURE, UNSPECIFIED (4) S/P CABG (coronary artery bypass graft) Assessment/Plan: cardio eval coreg Code(s): Z95.1 - PRESENCE OF AORTOCORONARY BYPASS GRAFT (5) COPD (chronic obstructive pulmonary disease) Assessment/Plan: stable spiriva bronchodiloators advair Code(s): J44.9 - CHRONIC OBSTRUCTIVE PULMONARY DISEASE, UNSPECIFIED (6) PAD (peripheral artery disease) Assessment/Plan: s/p fem pop cilostazol Code(s): I73.9 - PERIPHERAL VASCULAR DISEASE, UNSPECIFIED (7) ELSY (acute kidney injury) Assessment/Plan: repeat renal sono ivf Code(s): N17.9 - ACUTE KIDNEY FAILURE, UNSPECIFIED (8) Anemia Assessment/Plan: iron panel feosol vitamin C Code(s): D64.9 - ANEMIA, UNSPECIFIED Qualifiers: Anemia type: due to other cause
[2016-07-05 10:35] LABS: ALBUMIN 3.2 g/dl (3.4-5.0); BILIRUBIN,TOTAL 0.3 mg/dL (0.2-1.0); CALCIUM 8.6 mg/dL (8.5-10.1); COCKROFT - GAULT 28.33; TOT PROT 6.9 g/dl (6.4-8.2)
[2016-07-05] MEDS ORDERED: ALBUTEROL SO4 2.5/IPRATROPIUM 0.5 INH SOL 3 ML VIAL.NEB. NEB PRN (10:38)
[2016-07-05] MEDS ORDERED: SODIUM CHLORIDE 1,000 ML IV SCH (11:00)
[2016-07-05 11:23] LABS: URINE APPEARANCE CLOUDY; URINE BILIRUBIN NEGATIVE (NEGATIVE); URINE COLOR YELLOW; URINE GLUCOSE (UA) NEGATIVE (NEGATIVE); URINE KETONE NEGATIVE (NEGATIVE); URINE NITRITE NEGATIVE (NEGATIVE); URINE UROBILINOGEN NEGATIVE E.U./dl (0.2-1.0)
[2016-07-05 11:34] LABS: URINE BLOOD 2+ (NEGATIVE); URINE LEUK ESTERASE 3+ (NEGATIVE); URINE PROTEIN 2+ (NEGATIVE)
--- NOTE | 2016-07-05 11:58 | CONSULT ---
Consult - text type - Consultation Consultation Note: Renal Consult for ELSY on CKD This is a 86 year old Gentleman with PMhx of CKD (Cr last admission ~1.5), Prostate Ca s/p radiation/seeding/Greenlight), AAA Repair, CABG, Artificial Urethral sphincter, recurrent UTI's who presents with complaints of dysuria and hematuria with failed outpatient Abx treatment with BUN/Cr of 38/2. Pt is accompanined by his daughter who reports that his Cr has been known to go up and down. Pt was taking Bactrium at home for UTI (had taken it previously many times). Denies any rash, flank pain, abd pain, N/V, Chest pain or sob. Denies any NSAID use. No recent contrast exposure. Pt was advised to come into the ED by urology for IV Abx for UTI. PMHx: As above Allergies: NDKA Family Hx: NC Social Hx: No T/A/D ROS: as per HPI Home Meds: Home Medications Medication Instructions Recorded Febuxostat [Uloric -] 40 mg PO DAILY #0 11/03/12 Pantoprazole Sodium [Protonix -] 40 mg PO DAILY #0 tablet.ec 11/03/12 Simvastatin [Zocor -] 40 mg PO DAILY 06/24/13 Propylene Glycol [Systane Balance] 2 drop OU BID 06/14/14 Cilostazol [Pletal -] 100 mg PO BID #30 tablet 06/17/14 Ascorbic Acid [Vitamin C -] 500 mg PO DAILY tablet 07/20/14 Carvedilol [Coreg] 12.5 mg PO DAILY 08/26/14 Cetirizine HCl [Zyrtec -] 10 mg PO DAILY 08/26/14 Fesoterodine Fumarate [Toviaz] 8 mg PO DAILY 08/26/14 Cranberry Fruit Extract [Theracran 50 mg PO DAILY 03/17/16 Hp For Kids] Albuterol 2.5/Ipratropium 0.5 1 amp NEB QIDR #120 amp 03/19/16 [Duoneb -] Fluticasone/Salmeterol [Advair 1 each IH BID #1 blst.w.dev 03/19/16 250-50 Diskus] Nebulizer Accessories [A.i.r.s. 1 each QID #2 kit 03/19/16 Nebulizer] Tiotropium [place] [Spiriva] 1 puff IH DAILY #1 inh 03/19/16 Aspirin [ASA -] 81 mg PO DAILY 07/05/16 Vital Signs Temperature 98.3 F 07/05/16 08:23 Pulse Rate 70 07/05/16 08:23 Respiratory Rate 18 07/05/16 08:23 Blood Pressure 122/54 07/05/16 08:23 O2 Sat by Pulse Oximetry (%) 96 07/05/16 08:23 Intake & Output 07/02/16 07/03/16 07/04/16 07/05/16 23:59 23:59 23:59 23:59 Weight 173 lb Gen: NAD, awake and alert HEENT: NC/AT, MMM, No JVD, Neck supple CVS: RRR, No M/R Lungs: CTA, no rales or wheeze Abd: Distended, no tenderness, no rebound or guarding Ext: Trace to 1+ edema in right LE (chronic) : No overt bladder distension Neuro: No focal defects CBC, BMP 07/05/16 09:40 07/05/16 09:40 Laboratory Tests 07/05/16 07/05/16 07/05/16 09:40 09:40 10:51 MCV 86.8 Calcium 8.6 Albumin 3.2 L Urine Protein 2+ H Urine Blood 2+ H Ur Leukocyte Esterase 3+ H D Current Medications Aclidinium [place] (Tudorza -) 1 puff IH BID MALACHI Albuterol/Ipratropium (Duoneb -) 1 amp NEB Q6H PRN PRN Reason: SHORTNESS OF BREATH Atorvastatin Calcium (Lipitor -) 40 mg PO HS MALACHI Carvedilol (Coreg -) 6.25 mg PO BID MALACHI Cilostazol (Pletal -) 100 mg PO BID MALACHI Febuxostat (Uloric -) 40 mg PO DAILY MALACHI Sodium Chloride (Normal Saline -) 1,000 mls @ 84 mls/hr IV ASDIR MALACHI Pantoprazole Sodium (Protonix -) 40 mg PO DAILY MALACHI Fluticasone/Salmeterol (Advair 100mcg/50mcg -) 1 puff IH BID MALACHI A/P 86 year old Gentleman with PMhx of CKD (Cr last admission ~1.5), Prostate Ca s/ p radiation/seeding/Greenlight), AAA Repair, CABG, Artificial Urethral sphincter , recurrent UTI's who presents with complaints of dysuria and hematuria with failed outpatient Abx treatment with BUN/Cr of 38/2. #Acute on Chronic Renal Insufficiency Etiology volume depletion in setting of UTI vs. Urinary retention vs. AIN ( bactrium) Renal and bladder US ordered Check UPCR, FeNA, Urine Eiosinopils agree with trial of IVF D/C PPI for now given elevated serum Eios (Change to Pepcid) Dose all meds for Cr Cl less then 30 Check Phos, Mg, Uric acid #UTI with failed outpatient management Check Urine cX Abx as per ID #Urethral Stricture Urology follow up #CAD continue Coreg Prior ECHO reviewed, normal LVEF Thank you Will follow Sancho Cespedes dO
[2016-07-05 12:09] LABS: URINE MUCUS RARE; URINE RBC 251 /hpf (0-3); URINE WBC 475 /hpf (3-5)
--- NOTE | 2016-07-05 14:22 | CONSULT ---
Consultation: REQUESTING PROVIDER: Debbie Wang NP CONSULT REQUEST: We have been asked to medically evaluate this patient for urinary tract infection that failed outpatient treatment. HISTORY OF PRESENT ILLNESS: 86 year old male with a significant past medical history of prostate Ca (s/p seeding and radiation), urethral stricture (s/p attempted urethral sphincter procedure), with recurrent urinary tract infections, chronic urinary incontinence (dribbling constantly), recently failed outpatient treatment for urinary tract infection. Patient was taking bactrim, for , stopped on Monday, with out relief of symptoms, dysuria and hematuria. Patient was sent to the hospital by urologist for IV antibiotics. Patient is allergic to multiple medications. Scheduled for urethral dilatation procedure next week. ER course notable for positive urine analysis, with many WBC and leukocyte esterase. PMH: CAD with prior CABG, h/o AAA repair, PAD s/p fem-pop, abdominal adhesions, hernias, colectomy, Prostate Cancer,GOUT, Artificial Urethral Sphincter REVIEW OF SYSTEMS: CONSTITUTIONAL: Absent: fever, chills, diaphoresis, generalized weakness, malaise, loss of appetite, weight change HEENT: Absent: rhinorrhea, nasal congestion, throat pain, throat swelling, difficulty swallowing, mouth swelling, ear pain, eye pain, visual changes CARDIOVASCULAR: Absent: chest pain, syncope, palpitations, irregular heart rate, lightheadedness , peripheral edema RESPIRATORY: Absent: cough, shortness of breath, dyspnea with exertion, orthopnea, wheezing, stridor, hemoptysis GASTROINTESTINAL: Absent: abdominal pain, abdominal distension, nausea, vomiting, diarrhea, constipation, melena, hematochezia GENITOURINARY: Positive: dysuria, frequency, urgency, hesitancy, hematuria, Absent: flank pain, genital pain MUSCULOSKELETAL: Absent: myalgia, arthralgia, joint swelling, back pain, neck pain SKIN: Absent: rash, itching, pallor HEMATOLOGIC/IMMUNOLOGIC: Absent: easy bleeding, easy bruising, lymphadenopathy, frequent infections ENDOCRINE: Absent: unexplained weight gain, unexplained weight loss, heat intolerance, cold intolerance NEUROLOGIC: Absent: headache, focal weakness or paresthesias, dizziness, unsteady gait, seizure, mental status changes, bladder or bowel incontinence PSYCHIATRIC: Absent: anxiety, depression, suicidal or homicidal ideation, hallucinations. PHYSICAL EXAMINATION Vital Signs Period Temp Pulse Resp BP Sys/Child Pulse Ox Last 24 Hr 98 F-98.3 F 70-73 16-18 122-136/54-83 96-98 GENERAL: Awake, alert, and fully oriented, in no acute distress. HEAD: Normal with no signs of trauma. EYES: Pupils equal, round and reactive to light, extraocular movements intact, sclera anicteric, conjunctiva clear. No lid lag. EARS, NOSE, THROAT: Ears normal, nares patent, oropharynx clear without exudates. Moist mucous membranes. NECK: Normal range of motion, supple without lymphadenopathy, JVD, or masses. LUNGS: Breath sounds equal, clear to auscultation bilaterally. No wheezes, and no crackles. No accessory muscle use. HEART: Regular rate and rhythm, normal S1 and S2 without murmur, rub or gallop. ABDOMEN: Soft, nontender, not distended, normoactive bowel sounds, no guarding, no rebound, no masses. No hepatomegaly or splenomegaly. MUSCULOSKELETAL: Normal range of motion at all joints. No bony deformities or tenderness. No CVA tenderness. UPPER EXTREMITIES: 2+ pulses, warm, well-perfused. No cyanosis. No clubbing. Cap refill <2 seconds. No peripheral edema. LOWER EXTREMITIES: 2+ pulses, warm, well-perfused. No calf tenderness. No peripheral edema. NEUROLOGICAL: Cranial nerves II-XII intact. Normal speech. Normal gait. PSYCHIATRIC: Cooperative. Good eye contact. Appropriate mood and affect. SKIN: Warm, dry, normal turgor, no rashes or lesions noted. large scar on abdomen s/p multiple surgeries Genitourinary: penis head redness slightly swollen CBC, BMP 07/05/16 09:40 07/05/16 09:40 Active Medications Generic Name Dose Route Start Last Admin Trade Name Freq PRN Reason Stop Dose Admin Aclidinium [place] 1 puff 07/05/16 22:00 Tudorza - IH BID MALACHI Albuterol/Ipratropium 1 amp 07/05/16 10:38 Duoneb - NEB Q6H PRN SHORTNESS OF BREATH Atorvastatin Calcium 40 mg 07/05/16 22:00 Lipitor - PO HS MALACHI Carvedilol 6.25 mg 07/05/16 22:00 Coreg - PO BID MALACHI Cilostazol 100 mg 07/05/16 22:00 Pletal - PO BID MALACHI Febuxostat 40 mg 07/06/16 10:00 Uloric - PO DAILY MALACHI Sodium Chloride 1,000 mls @ 84 mls/hr 07/05/16 11:52 Normal Saline - IV ASDIR MALACHI Ranitidine HCl 150 mg 07/05/16 22:00 Zantac - PO BID MALACHI Fluticasone/Salmeterol 1 puff 07/05/16 22:00 Advair 100mcg/50mcg - IH BID MALACHI ASSESSMENT/PLAN: 86 year old male with PMH indicated above, recurrent urinary tract infections with multiple allergies. Admitted for complicated cystitis, recurrent urinary tract infection. #recurrent urinary tract infection -start empiric IV aztreonam 1gm bid -gentle IVF -follow up urine cultures #ELSY: -gentle hydration -renal US unchanged from previous; no hydronephrosis -renal consulted Dispo: We will continue to follow the patient. Thank you for this consultative opportunity. Problem List - Problems (1) ELSY (acute kidney injury) Code(s): N17.9 - ACUTE KIDNEY FAILURE, UNSPECIFIED (2) Failure of outpatient treatment Code(s): Z78.9 - OTHER SPECIFIED HEALTH STATUS (3) UTI (urinary tract infection) Code(s): N39.0 - URINARY TRACT INFECTION, SITE NOT SPECIFIED Qualifiers: Urinary tract infection type: site unspecified Hematuria presence: without hematuria Qualified Code(s): N39.0 - Urinary tract infection, site not specified (4) Urethral stricture Code(s): N35.9 - URETHRAL STRICTURE, UNSPECIFIED (5) Abdominal pain in male Code(s): R10.9 - UNSPECIFIED ABDOMINAL PAIN (6) Allergy to multiple antibiotics Code(s): Z88.1 - ALLERGY STATUS TO OTHER ANTIBIOTIC AGENTS STATUS (7) Anemia Code(s): D64.9 - ANEMIA, UNSPECIFIED Qualifiers: Anemia type: due to other cause (8) COPD (chronic obstructive pulmonary disease) Code(s): J44.9 - CHRONIC OBSTRUCTIVE PULMONARY DISEASE, UNSPECIFIED (9) HTN (hypertension) Code(s): I10 - ESSENTIAL (PRIMARY) HYPERTENSION Qualifiers: Hypertension type: essential hypertension Qualified Code(s): I10 - Essential (primary) hypertension (10) PAD (peripheral artery disease) Code(s): I73.9 - PERIPHERAL VASCULAR DISEASE, UNSPECIFIED Visit type - Emergency Visit Emergency Visit: Yes ED Registration Date: 07/05/16 Care time: The patient presented to the Emergency Department on the above date and was hospitalized for further evaluation of their emergent condition. - New Patient This patient is new to me today: Yes Date on this admission: 07/05/16 - Critical Care Critical Care patient: No
[2016-07-05] MEDS: SODIUM CHLORIDE 1,000 ML IV SCH (14:32)
--- NOTE | 2016-07-05 15:03 | CON.CARD ---
Consult Consult Specialty:: cardio Referred by:: lashawn/nicola Reason for Consultation:: hematuria, preop - History of Present Illness Chief Complaint: hematuria History of Present Illness: 85 year old male sent to hosp by for failed outpt abx mgmt of UTI. + dyuria and hematuria for one week. recent creat elevation/lability apparently as outpt as well. he is planned for urethral sphincter dilatation by urology next week. he has had no sob, orthopnea, cp, palpitations mild R ankle swelling stable vs longstanding baseline PMH: CAD with prior CABG, h/o AAA repair, PAD s/p fem-pop x multiple, abdominal adhesions, hernias, colectomy, Prostate Cancer,GOUT, Artificial Urethral Sphincter - Past Medical History Cardio/Vascular: Yes: CAD, HTN, RI, Other (PAD) Pulmonary: Yes: COPD. No: O2 Dependent Gastrointestinal: Yes: GERD Renal/: Yes: Renal Inusuff, Cancer (PROSTATE) Rheumatology: Yes: Gout - Past Surgical History Past Surgical History: Yes: AAA Repair, Bypass (LE), CABG - Alcohol/Substance Use Hx Alcohol Use: No - Smoking History Smoking history: Former smoker Have you smoked in the past 12 months: No Aproximately how many cigarettes per day: 80 If you are a former smoker, when did you quit?: 1979 - Social History Usual Living Arrangement: Alone ADL: Independent History of Recent Travel: No Home Medications - Allergies Allergies/Adverse Reactions: Allergies Allergy/AdvReac Type Severity Reaction Status Date / Time beeswax Allergy Severe Verified 07/05/16 08:29 cephalexin monohydrate Allergy Severe Verified 07/05/16 08:29 [From Keflex] honey Allergy Severe Verified 07/05/16 08:29 Penicillins Allergy Severe Verified 07/05/16 08:29 tetracycline [Tetracycline] Allergy Severe Verified 07/05/16 08:29 Nitrofuran Analogues Allergy Verified 07/05/16 08:29 ondansetron HCl AdvReac Unknown Verified 07/05/16 08:29 [From Zofran (as hydrochloride)] papertape Allergy Uncoded 07/05/16 13:34 - Home Medications Home Medications: Ambulatory Orders Febuxostat [Uloric -] 40 mg PO DAILY #0 11/03/12 Pantoprazole Sodium [Protonix -] 40 mg PO DAILY #0 tablet.ec 11/03/12 Simvastatin [Zocor -] 40 mg PO DAILY 06/24/13 Propylene Glycol [Systane Balance] 2 drop OU BID 06/14/14 Cilostazol [Pletal -] 100 mg PO BID #30 tablet 06/17/14 Ascorbic Acid [Vitamin C -] 500 mg PO DAILY tablet 07/20/14 Carvedilol [Coreg] 12.5 mg PO DAILY 08/26/14 Cetirizine HCl [Zyrtec -] 10 mg PO DAILY 08/26/14 Fesoterodine Fumarate [Toviaz] 8 mg PO DAILY 08/26/14 Cranberry Fruit Extract [Theracran Hp For Kids] 50 mg PO DAILY 03/17/16 Albuterol 2.5/Ipratropium 0.5 [Duoneb -] 1 amp NEB QIDR #120 amp 03/19/16 Fluticasone/Salmeterol [Advair 250-50 Diskus] 1 each IH BID #1 blst.w.dev Nebulizer Accessories [A.i.r.s. Nebulizer] 1 each QID #2 kit 03/19/16 Tiotropium [place] [Spiriva] 1 puff IH DAILY #1 inh 03/19/16 Aspirin [ASA -] 81 mg PO DAILY 07/05/16 Cyclosporine [Restasis] 1 each OU DAILY 07/05/16 Review of Systems - Review of Systems Constitutional: denies: Chills, Fever Eyes: denies: Eye Pain HENT: denies: Nasal Congestion Neck: denies: Stiffness Cardiovascular: denies: Palpitations Respiratory: denies: Orthopnea, PND Gastrointestinal: denies: Diarrhea, Rectal Bleeding Genitourinary: reports: Burning, Hematuria Musculoskeletal: denies: Muscle Pain Integumentary: denies: Rash Neurological: denies: Numbness, Seizure, Syncope Endocrine: denies: Excessive Sweating Hematology/Lymphatic: denies: Excessive Bleeding Vital Signs: Vital Signs Temperature 98 F 07/05/16 12:37 Pulse Rate 73 07/05/16 12:37 Respiratory Rate 16 07/05/16 12:37 Blood Pressure 136/83 07/05/16 12:37 O2 Sat by Pulse Oximetry (%) 98 07/05/16 12:37 Constitutional: Yes: Well Nourished, No Distress Eyes: No: Sclera Icterus HENT: No: Nasal Congestion Neck: No: Decreased ROM Respiratory: Yes: CTA Bilaterally. No: Accessory Muscle Use Gastrointestinal: Yes: Normal Bowel Sounds. No: Distention, Hepatomegaly, Palpable Mass, Tenderness Cardiovascular: Yes: Regular Rate and Rhythm JVD: No Carotid Bruit: No PMI: Non-Displaced Heart Sounds: Yes: S1, S2. No: Gallop Murmur: No: Systolic Murmur, Diastolic Murmur Musculoskeletal: Yes: Other (No kyphosis) Extremities: No: Cold, Cyanosis Edema: No Peripheral Pulses: 2+ Left Carotid, 2+ Right Carotid, 2+ Left Doralis Pedis, 2+ Right Dorsalis Pedis Integumentary: No: Jaundice Neurological: Yes: Alert, Oriented (x3) Psychiatric: No: Agitated - Other Data Labs, Other Data: CBC, BMP 07/05/16 09:40 07/05/16 09:40 INR, PTT INR 1.17 (0.82-1.09) H 07/05/16 09:40 Laboratory Tests 07/05/16 07/05/16 09:40 09:40 WBC 5.2 Hgb 10.1 L Plt Count 170 Sodium 140 Potassium 4.9 D BUN 38 H D Creatinine 2.0 H D AST 25 D ALT 18 D ekg 07/05: NSR, RBBB; no path q's; nonsp ST-Ts--no sig change vs prior 06/2014) Assessment/Plan MPI 09/2015 (joe): No ischemic ST-T changes. No evidence of ischemia. ( Diaphragm attenuation artifact present.) Normal LVEF. Normal LV cavity size with no transient dilation. Echo 03/08: nl LVSF; nl RV; mod LAE; mil MR/TR; RVSP 40-50; borderline ao root dilation; small peric effusion Preop CV eval: -RCRI = 1, decr'd functional status -no s/sx of active cv dz -intermediate risk for periop CV complications from cysto procedures (or any other surgeries) -cont BB (carvedilol) as doing -no further CV testing is indicated -ok to hold ASA pre and post interventions as long as is needed ELSY on CKD: Baseline creat ranges 1.3-1.5, higher here. Renal input reviewed: etiology: volume depletion in setting of UTI vs. urinary retention vs. AIN (bactrium) Plan per renal team Pt is safe to have trial of IVF if deemed necessary Chronic ischemic heart disease H/O CABG. NO ISCHEMIA 2015. NO ANGINAL SX'S HISTORY FOR MANY YRS OMT: ASA 81, STATIN, BB DOING (DANICA previously deferred) Essential hypertension WELL CONTROLLED (PRIOR AAA REPAIR, SMALL RESIDUAL); CONT HOME MEDS Secondary pulmonary hypertension RVSP ESTIMATED 40-50 ON PRIOR HOSP ECHO 03/08. SUSPECT SEC TO HYPOXIC LUNG DZ/COPD. DOUBT DIAST CHF, NEVER HAD CLINICAL FINDINGS SUGGESTIVE OF CHF. OUTPT F/U DOING Vascular disorder of extremity PRIOR RIGHT FEM POP, NOW OCCLUDED WITH DIFFUSE DZ PROXIMAL AND DISTAL TO GRAFT, LIKELY INFLOW DZ. ALSO INFLOW DZ LIKELY ON LEFT. ON CILOSTAZOL, SEES [facility] Aneurysm of the infrarenal abdominal aorta S/P REMOTE OPEN REPAIR. 4.[address] SCAN 07/04, STABLE VS PRIOR. PT STATES HE DOES SURVEILLANCE ABDOMINAL AORTA SONOS AT [facility]--ROUTINE VASCULAR F/U TO CONTINUE OUTPT Emphysema MARKED CT SCAN CHANGES AND PFT'S WITH SMALL AIRWAYS OBSTRUCTION AND MOD DECR DIFFUSION CAPACITY. SOB IMPROVED WITH INHALERS REGIMEN; F/U MICHAEL Hypercholesterolemia WELL CONTROLLED ON OUTPT LABS. CONT SIMVA 40 (OR FORMULARY EQUIVALENT)
[2016-07-05] MEDS ORDERED: AZTREONAM 1 GM in DEXTROSE 5%-WATER - 50 ML IVPB ONE (15:44)
--- NOTE | 2016-07-05 15:44 | PN ---
Teaching Attending Note Name of Resident: Vianney Phan ATTENDING PHYSICIAN STATEMENT I saw and evaluated the patient. I reviewed the resident's note and discussed the case with the resident. I agree with the resident's findings and plan as documented. SUBJECTIVE: OBJECTIVE: ASSESSMENT AND PLAN: Recurrent UTI Ureathral stricture Antibiotic allergies Pending c/s, empiric aztreonam
[2016-07-05] MEDS: FLUTICASONE/SALMETEROL 100 MCG/50 MCG DISKUS IH SCH (21:28)
[2016-07-05] MEDS: CARVEDILOL 6.25 MG TABLET (FP) PO SCH (21:29)
[2016-07-05] MEDS: RANITIDINE HCL 150 MG TABLET (FP) PO SCH (21:29)
[2016-07-05] MEDS: ATORVASTATIN CA 40 MG TABLET (FP) PO SCH (21:29)
[2016-07-05] MEDS: AZTREONAM 1 GM in DEXTROSE 5%-WATER - 50 ML IVPB SCH (21:29)
[2016-07-05] MEDS ORDERED: CILOSTAZOL 50 MG TABLET (FP) PO SCH (22:00)
[2016-07-06] MEDS: ACLIDINIUM BROMIDE 400 MCG/INH AERO.POWD IH SCH ×3 (02:11→21:35)
[2016-07-06] MEDS: SODIUM CHLORIDE 1,000 ML IV SCH (02:14)
[2016-07-06 07:29] LABS: BASOPHIL 1.2 % (0-2.0); EOSINOPHIL 9.2 % (0-4.5); MCH 28.6 pg (25.7-33.7); MCHC 32.9 g/dl (32.0-35.9); MEAN CELL VOLUME 86.8 fl (80-96); NEUTROPHILS 60.4 % (42.8-82.8); PLATELET COUNT 143 K/MM3 (134-434); RDW 16.5 % (11.9-15.9); WHITE BLOOD COUNT 4.1 K/mm3 (4.0-10.0)
--- NOTE | 2016-07-06 07:45 | CON.GU ---
Consult - History of Present Illness History of Present Illness: 86 yo male well known to me with h/o prostate cancer s/p XRT/brachytherapy, h/o greenlight laser of prostate, h/o artificila urethral sphincter for incontinence that has been since removed, h/o recurrent utis. Now admitted after failed outpt treatment for uti with bactrim. Pt has multiple alklergies. Had been scheduled for cysto/dilation of stricture next week electively however due to continued pain, being admitted for IVabx - Past Medical History Cardio/Vascular: Yes: CAD, HTN, [place], Other (PAD) Pulmonary: Yes: COPD. No: O2 Dependent Gastrointestinal: Yes: GERD Renal/: Yes: Renal Inusuff, Cancer (PROSTATE) Rheumatology: Yes: Gout - Past Surgical History Past Surgical History: Yes: AAA Repair, Bypass (LE), CABG - Alcohol/Substance Use Hx Alcohol Use: No - Smoking History Smoking history: Former smoker Have you smoked in the past 12 months: No Aproximately how many cigarettes per day: 80 If you are a former smoker, when did you quit?: 1979 - Social History Usual Living Arrangement: Alone ADL: Independent History of Recent Travel: No Home Medications - Allergies Allergies/Adverse Reactions: Allergies Allergy/AdvReac Type Severity Reaction Status Date / Time beeswax Allergy Severe Verified 07/05/16 08:29 cephalexin monohydrate Allergy Severe Verified 07/05/16 08:29 [From Keflex] honey Allergy Severe Verified 07/05/16 08:29 Penicillins Allergy Severe Verified 07/05/16 08:29 tetracycline [Tetracycline] Allergy Severe Verified 07/05/16 08:29 Nitrofuran Analogues Allergy Verified 07/05/16 08:29 ondansetron HCl AdvReac Unknown Verified 07/05/16 08:29 [From Zofran (as hydrochloride)] papertape Allergy Uncoded 07/05/16 13:34 - Home Medications Home Medications: Ambulatory Orders Febuxostat [Uloric -] 40 mg PO DAILY #0 11/03/12 Pantoprazole Sodium [Protonix -] 40 mg PO DAILY #0 tablet.ec 11/03/12 Simvastatin [Zocor -] 40 mg PO DAILY 06/24/13 Propylene Glycol [Systane Balance] 2 drop OU BID 06/14/14 Cilostazol [Pletal -] 100 mg PO BID #30 tablet 06/17/14 Ascorbic Acid [Vitamin C -] 500 mg PO DAILY tablet 07/20/14 Carvedilol [Coreg] 12.5 mg PO DAILY 08/26/14 Cetirizine HCl [Zyrtec -] 10 mg PO DAILY 08/26/14 Fesoterodine Fumarate [Toviaz] 8 mg PO DAILY 08/26/14 Cranberry Fruit Extract [Theracran Hp For Kids] 50 mg PO DAILY 03/17/16 Albuterol 2.5/Ipratropium 0.5 [Duoneb -] 1 amp NEB QIDR #120 amp 03/19/16 Fluticasone/Salmeterol [Advair 250-50 Diskus] 1 each IH BID #1 blst.w.dev Nebulizer Accessories [A.i.r.s. Nebulizer] 1 each QID #2 kit 03/19/16 Tiotropium [place] [Spiriva] 1 puff IH DAILY #1 inh 03/19/16 Aspirin [ASA -] 81 mg PO DAILY 07/05/16 Cyclosporine [Restasis] 1 each OU DAILY 07/05/16 Physical Exam- Vital Signs: Vital Signs Temperature 98.3 F 07/06/16 06:00 Pulse Rate 63 07/06/16 06:00 Respiratory Rate 18 07/06/16 06:00 Blood Pressure 108/49 07/06/16 06:00 O2 Sat by Pulse Oximetry (%) 96 07/05/16 21:00 Labs: CBC, BMP 07/06/16 06:20 Problem List - Problems (1) Urethral stricture Assessment/Plan: will plan for cysto/dilation in am tomorrow Code(s): N35.9 - URETHRAL STRICTURE, UNSPECIFIED
[2016-07-06 07:53] LABS: INR 1.19 (0.82-1.09); PROTHROMBIN TIME (PATIENT) 13.1 SEC (9.98-11.88)
[2016-07-06 07:55] LABS: ACTIVATED PTT 35.9 SECONDS (26.9-34.4)
[2016-07-06 08:04] LABS: URIC ACID 2.3 mg/dL (2.6-7.2)
[2016-07-06 08:05] LABS: ALBUMIN 2.7 g/dl (3.4-5.0); COCKROFT - GAULT 33.33; CREATININE 1.7 mg/dL (0.7-1.3); FERRITIN 224.708 ng/ml (16.4-293.9); MAGNESIUM 2.2 mg/dL (1.8-2.4); PHOSPHOROUS 3.2 mg/dL (2.5-4.9)
[2016-07-06 08:07] LABS: BILIRUBIN,TOTAL 0.4 mg/dL (0.2-1.0); TOT PROT 5.8 g/dl (6.4-8.2)
[2016-07-06] MEDS ORDERED: PANTOPRAZOLE 40 MG TABLET (FP) PO SCH (10:00)
--- NOTE | 2016-07-06 10:17 | HP ---
Admitting History and Physical - Past Medical History Cardiovascular: Yes: CAD, HTN, [place], Other (PAD) Pulmonary: Yes: COPD. No: O2 Dependent Gastrointestinal: Yes: GERD Renal/: Yes: Renal Inusuff, Cancer (PROSTATE) Rheumatology: Yes: Gout - Past Surgical History Past Surgical History: Yes: AAA Repair, Bypass (LE), CABG - Advance Directives Advance Directives: Yes: Health Care Proxy - Smoking History Smoking history: Former smoker Have you smoked in the past 12 months: No Aproximately how many cigarettes per day: 80 If you are a former smoker, when did you quit?: 1979 - Alcohol/Substance Use Hx Alcohol Use: No - Social History ADL: Independent History of Recent Travel: No Home Medications - Allergies Allergies/Adverse Reactions: Allergies Allergy/AdvReac Type Severity Reaction Status Date / Time beeswax Allergy Severe Verified 07/05/16 08:29 cephalexin monohydrate Allergy Severe Verified 07/05/16 08:29 [From Keflex] honey Allergy Severe Verified 07/05/16 08:29 Penicillins Allergy Severe Verified 07/05/16 08:29 tetracycline [Tetracycline] Allergy Severe Verified 07/05/16 08:29 Nitrofuran Analogues Allergy Verified 07/05/16 08:29 ondansetron HCl AdvReac Unknown Verified 07/05/16 08:29 [From Zofran (as hydrochloride)] papertape Allergy Uncoded 07/05/16 13:34 - Home Medications Home Medications: Ambulatory Orders Febuxostat [Uloric -] 40 mg PO DAILY #0 11/03/12 Pantoprazole Sodium [Protonix -] 40 mg PO DAILY #0 tablet.ec 11/03/12 Simvastatin [Zocor -] 40 mg PO DAILY 06/24/13 Propylene Glycol [Systane Balance] 2 drop OU BID 06/14/14 Cilostazol [Pletal -] 100 mg PO BID #30 tablet 06/17/14 Ascorbic Acid [Vitamin C -] 500 mg PO DAILY tablet 07/20/14 Carvedilol [Coreg] 12.5 mg PO DAILY 08/26/14 Cetirizine HCl [Zyrtec -] 10 mg PO DAILY 08/26/14 Fesoterodine Fumarate [Toviaz] 8 mg PO DAILY 08/26/14 Cranberry Fruit Extract [Theracran Hp For Kids] 50 mg PO DAILY 03/17/16 Albuterol 2.5/Ipratropium 0.5 [Duoneb -] 1 amp NEB QIDR #120 amp 03/19/16 Fluticasone/Salmeterol [Advair 250-50 Diskus] 1 each IH BID #1 blst.w.dev Nebulizer Accessories [A.i.r.s. Nebulizer] 1 each QID #2 kit 03/19/16 Tiotropium [place] [Spiriva] 1 puff IH DAILY #1 inh 03/19/16 Aspirin [ASA -] 81 mg PO DAILY 07/05/16 Cyclosporine [Restasis] 1 each OU DAILY 07/05/16 Physical Examination Vital Signs: Vital Signs Temperature 98.3 F 07/06/16 06:00 Pulse Rate 63 07/06/16 06:00 Respiratory Rate 18 07/06/16 06:00 Blood Pressure 108/49 07/06/16 06:00 O2 Sat by Pulse Oximetry (%) 96 07/05/16 21:00 Labs: CBC, BMP 07/06/16 06:20 07/06/16 06:20
[2016-07-06] MEDS ORDERED: PT OWN MED DRAWER 7, Y5N ONE (10:40)
[2016-07-06] MEDS ORDERED: SODIUM CHLORIDE 1,000 ML IV SCH (10:51)
--- NOTE | 2016-07-06 10:51 | PN ---
Progress Note (short form) - Note Progress Note: Renal Follow up pt seen and examined at the bedside no acute complaints no sob or chest pain no N/V/D able to void Vital Signs Temperature 98.3 F 07/06/16 06:00 Pulse Rate 63 07/06/16 06:00 Respiratory Rate 18 07/06/16 06:00 Blood Pressure 108/49 07/06/16 06:00 O2 Sat by Pulse Oximetry (%) 96 07/05/16 21:00 Intake & Output 07/03/16 07/04/16 07/05/16 07/06/16 23:59 23:59 23:59 23:59 Intake Total 950 900 Balance 950 900 Weight 173 lb Gen: NAD, awake and alert CVS: RRR, No M/R Lungs: CTA, no rales or wheeze Abd: NT/ND Ext: Trace to 1+ edema in right LE (chronic) CBC, BMP 07/06/16 06:20 07/06/16 06:20 Current Medications Aclidinium [place] (Tudorza -) 1 puff IH BID [facility] Last Admin: 07/06/16 02:11 Dose: Not Given Albuterol/Ipratropium (Duoneb -) 1 amp NEB Q6H PRN PRN Reason: SHORTNESS OF BREATH Atorvastatin Calcium (Lipitor -) 40 mg PO HS [facility] Last Admin: 07/05/16 21:29 Dose: 40 mg Carvedilol (Coreg -) 6.25 mg PO BID [facility] Last Admin: 07/05/16 21:29 Dose: 6.25 mg Febuxostat (Uloric -) 40 mg PO DAILY [facility] Sodium Chloride (Normal Saline -) 1,000 mls @ 84 mls/hr IV ASDIR [facility] Last Admin: 07/06/16 02:14 Dose: 84 mls/hr Aztreonam 1 gm/ Dextrose 50 mls @ 100 mls/hr IVPB BID [facility] PRN Reason: Protocol Last Admin: 07/05/16 21:29 Dose: 100 mls/hr Ranitidine HCl (Zantac -) 150 mg PO BID [facility] Last Admin: 07/05/16 21:29 Dose: 150 mg Fluticasone/Salmeterol (Advair 100mcg/50mcg -) 1 puff IH BID [facility] Last Admin: 07/05/16 21:28 Dose: 1 inh A/P 86 year old Gentleman with PMhx of CKD (Cr last admission ~1.5), Prostate Ca s/ p radiation/seeding/Greenlight), AAA Repair, CABG, Artificial Urethral sphincter , recurrent UTI's who presents with complaints of dysuria and hematuria with failed outpatient Abx treatment with BUN/Cr of 38/2. #Acute on Chronic Renal Insufficiency Etiology volume depletion in setting of UTI vs. Urinary retention vs. AIN ( bactrium) UA showed large amount of WBC consistent with UTI + protein on the UA, UPCR is 0.4 Renal and bladder us showed no obstruction or retention Cr improved continue present IVF #UTI with failed outpatient management on Aztreonam #Urethral Stricture Urology follow up for procedure tomorrow #CAD continue Coreg Prior ECHO reviewed, normal LVEF Sancho barnett
--- NOTE | 2016-07-06 10:51 | PN ---
Progress Note, Physician - Current Medication List Current Medications: Active Medications Aclidinium [place] (Tudorza -) 1 puff IH BID [facility] Last Admin: 07/06/16 02:11 Dose: Not Given Albuterol/Ipratropium (Duoneb -) 1 amp NEB Q6H PRN PRN Reason: SHORTNESS OF BREATH Atorvastatin Calcium (Lipitor -) 40 mg PO HS [facility] Last Admin: 07/05/16 21:29 Dose: 40 mg Carvedilol (Coreg -) 6.25 mg PO BID [facility] Last Admin: 07/05/16 21:29 Dose: 6.25 mg Febuxostat (Uloric -) 40 mg PO DAILY [facility] Sodium Chloride (Normal Saline -) 1,000 mls @ 84 mls/hr IV ASDIR [facility] Last Admin: 07/06/16 02:14 Dose: 84 mls/hr Aztreonam 1 gm/ Dextrose 50 mls @ 100 mls/hr IVPB BID [facility] PRN Reason: Protocol Last Admin: 07/05/16 21:29 Dose: 100 mls/hr Ranitidine HCl (Zantac -) 150 mg PO BID [facility] Last Admin: 07/05/16 21:29 Dose: 150 mg Fluticasone/Salmeterol (Advair 100mcg/50mcg -) 1 puff IH BID [facility] Last Admin: 07/05/16 21:28 Dose: 1 inh - Objective Vital Signs: Vital Signs Temperature 98.3 F 07/06/16 06:00 Pulse Rate 63 07/06/16 06:00 Respiratory Rate 18 07/06/16 06:00 Blood Pressure 108/49 07/06/16 06:00 O2 Sat by Pulse Oximetry (%) 96 07/05/16 21:00 Labs: CBC, BMP 07/06/16 06:20 07/06/16 06:20 INR, PTT INR 1.19 (0.82-1.09) H 07/06/16 06:20 Assessment/Plan - Problems (1) Failure of outpatient treatment Assessment/Plan: ID eval urine cultures multiple allergies urology eval Code(s): Z78.9 - OTHER SPECIFIED HEALTH STATUS (2) UTI (urinary tract infection) Assessment/Plan: see above Code(s): N39.0 - URINARY TRACT INFECTION, SITE NOT SPECIFIED Qualifiers: Urinary tract infection type: site unspecified Hematuria presence: without hematuria Qualified Code(s): N39.0 - Urinary tract infection, site not specified (3) Urethral stricture Assessment/Plan: cardio clearance urology for dilatation elevated renal function sec to outlet obstruction Code(s): N35.9 - URETHRAL STRICTURE, UNSPECIFIED (4) S/P CABG (coronary artery bypass graft) Assessment/Plan: cardio eval coreg Code(s): Z95.1 - PRESENCE OF AORTOCORONARY BYPASS GRAFT (5) COPD (chronic obstructive pulmonary disease) Assessment/Plan: stable spiriva bronchodiloators advair Code(s): J44.9 - CHRONIC OBSTRUCTIVE PULMONARY DISEASE, UNSPECIFIED (6) PAD (peripheral artery disease) Assessment/Plan: s/p fem pop cilostazol Code(s): I73.9 - PERIPHERAL VASCULAR DISEASE, UNSPECIFIED (7) ELSY (acute kidney injury) Assessment/Plan: repeat renal sono ivf Code(s): N17.9 - ACUTE KIDNEY FAILURE, UNSPECIFIED (8) Anemia Assessment/Plan: iron panel feosol vitamin C Code(s): D64.9 - ANEMIA, UNSPECIFIED Qualifiers: Anemia type: due to other cause
[2016-07-06] MEDS: FLUTICASONE/SALMETEROL 100 MCG/50 MCG DISKUS IH SCH ×2 (10:53→21:36)
[2016-07-06] MEDS: CARVEDILOL 6.25 MG TABLET (FP) PO SCH ×2 (10:53→21:35)
[2016-07-06] MEDS: AZTREONAM 1 GM in DEXTROSE 5%-WATER - 50 ML IVPB SCH ×2 (10:53→21:35)
[2016-07-06] MEDS: FEBUXOSTAT 40 MG TAB PO SCH (10:54)
[2016-07-06] MEDS: RANITIDINE HCL 150 MG TABLET (FP) PO SCH ×2 (10:54→21:35)
--- NOTE | 2016-07-06 11:20 | PN ---
Physical Exam: SUBJECTIVE: Patient seen and examined, no new complaints, afebrile, white count wnl. Admits to decrease burning from penis. Going for cystoscopy and dilation tomorrow. OBJECTIVE: Vital Signs Period Temp Pulse Resp BP Sys/Child Pulse Ox Last 24 Hr 97.4 F-98.3 F 62-73 16-20 108-136/49-83 96-98 GENERAL: The patient is awake, alert, and fully oriented, in no acute distress. HEAD: Normal with no signs of trauma. EYES: PERRL, extraocular movements intact, sclera anicteric, conjunctiva clear. No ptosis. ENT: Ears normal, nares patent, oropharynx clear without exudates, moist mucous membranes. NECK: Trachea midline, full range of motion, supple. LUNGS: Breath sounds equal, clear to auscultation bilaterally, no wheezes, +bi basilar crackles, no accessory muscle use. HEART: Regular rate and rhythm, S1, S2 without murmur, rub or gallop. ABDOMEN: Soft, nontender, nondistended, normoactive bowel sounds, no guarding, no rebound, no hepatosplenomegaly, no masses. EXTREMITIES: 2+ pulses, warm, well-perfused, no edema. NEUROLOGICAL: Cranial nerves II through XII grossly intact. Normal speech, gait not observed. PSYCH: Normal mood, normal affect. SKIN: Warm, dry, normal turgor, no rashes or lesions noted GENITALs: penile meatus with erythema CBC, BMP 07/06/16 06:20 07/06/16 06:20 Active Medications Generic Name Dose Route Start Last Admin Trade Name Freq PRN Reason Stop Dose Admin Aclidinium [place] 1 puff 07/05/16 22:00 07/06/16 10:54 Tudorza - IH 1 puff BID MALACHI Administration Albuterol/Ipratropium 1 amp 07/05/16 10:38 Duoneb - NEB Q6H PRN SHORTNESS OF BREATH Atorvastatin Calcium 40 mg 07/05/16 22:00 07/05/16 21:29 Lipitor - PO 40 mg HS [facility]ACHI Administration Carvedilol 6.25 mg 07/05/16 22:00 07/06/16 10:53 Coreg - PO 6.25 mg BID [facility]ACHI Administration Febuxostat 40 mg 07/06/16 10:00 07/06/16 10:54 Uloric - PO 40 mg DAILY [facility]ACHI Administration Aztreonam 1 gm/ Dextrose 50 mls @ 100 mls/hr 07/05/16 22:00 07/06/16 10:53 IVPB 100 mls/hr BID [facility]ACHI Administration Protocol Sodium Chloride 1,000 mls @ 42 mls/hr 07/06/16 10:51 Normal Saline - IV ASDIR [facility]ACHI Ranitidine HCl 150 mg 07/05/16 22:00 07/06/16 10:54 Zantac - PO 150 mg BID [facility]ACHI Administration Fluticasone/Salmeterol 1 puff 07/05/16 22:00 07/06/16 10:53 Advair 100mcg/50mcg - IH 1 inh BID [facility]ACHI Administration Microbiology 07/05/16 10:51 Urine - Urine Clean Catch Urine Culture - Final Contaminated: Please Repeat 07/05/16 09:35 Blood - Peripheral Venous Blood Culture - Preliminary NO GROWTH OBTAINED AFTER 24 HOURS, INCUBATION TO CONTINUE FOR 4 DAYS. 07/05/16 09:40 Blood - Peripheral Venous Blood Culture - Preliminary NO GROWTH OBTAINED AFTER 24 HOURS, INCUBATION TO CONTINUE FOR 4 DAYS. ASSESSMENT/PLAN: 86 year old male with PMH indicated above, recurrent urinary tract infections with multiple allergies. Admitted for complicated cystitis, recurrent urinary tract infection. Scheduled for cysto/dilation tomorrow. #recurrent urinary tract infection -cont IV aztreonam 1gm bid (day 2), continue until cultures come back -follow up urine cultures #ELSY: -renal US unchanged from previous; no hydronephrosis -renal consulted -going for cysto/dilation on am Dispo: We will continue to follow the patient. Thank you for this consultative opportunity. Problem List - Problems (1) ELSY (acute kidney injury) Code(s): N17.9 - ACUTE KIDNEY FAILURE, UNSPECIFIED (2) Failure of outpatient treatment Code(s): Z78.9 - OTHER SPECIFIED HEALTH STATUS (3) UTI (urinary tract infection) Code(s): N39.0 - URINARY TRACT INFECTION, SITE NOT SPECIFIED Qualifiers: Urinary tract infection type: site unspecified Hematuria presence: without hematuria Qualified Code(s): N39.0 - Urinary tract infection, site not specified (4) Urethral stricture Code(s): N35.9 - URETHRAL STRICTURE, UNSPECIFIED (5) Abdominal pain in male Code(s): R10.9 - UNSPECIFIED ABDOMINAL PAIN (6) Allergy to multiple antibiotics Code(s): Z88.1 - ALLERGY STATUS TO OTHER ANTIBIOTIC AGENTS STATUS (7) Anemia Code(s): D64.9 - ANEMIA, UNSPECIFIED Qualifiers: Anemia type: due to other cause (8) COPD (chronic obstructive pulmonary disease) Code(s): J44.9 - CHRONIC OBSTRUCTIVE PULMONARY DISEASE, UNSPECIFIED (9) HTN (hypertension) Code(s): I10 - ESSENTIAL (PRIMARY) HYPERTENSION Qualifiers: Hypertension type: essential hypertension Qualified Code(s): I10 - Essential (primary) hypertension (10) PAD (peripheral artery disease) Code(s): I73.9 - PERIPHERAL VASCULAR DISEASE, UNSPECIFIED Visit type - Emergency Visit Emergency Visit: Yes ED Registration Date: 07/05/16 Care time: The patient presented to the Emergency Department on the above date and was hospitalized for further evaluation of their emergent condition. - New Patient This patient is new to me today: No - Critical Care Critical Care patient: No
--- NOTE | 2016-07-06 13:36 | PN ---
Teaching Attending Note Name of Resident: Vianney Phan ATTENDING PHYSICIAN STATEMENT I saw and evaluated the patient. I reviewed the resident's note and discussed the case with the resident. I agree with the resident's findings and plan as documented. SUBJECTIVE: OOB in chair No adverse rxn to antibiotics No c/o dysuria/ suprapubic pain No fever/ chills OBJECTIVE: Cor S1S2 Lungs clear Abdomen soft, no suprapubic tenderness ASSESSMENT AND PLAN: Recurrent UTI Ureathral stricture Antibiotic allergies Continue empiric aztreonam Await cultures
--- NOTE | 2016-07-06 14:40 | EKG ---
Test Reason : Blood Pressure : / mmHG Vent. Rate : 061 BPM Atrial Rate : 061 BPM P-R Int : 226 ms QRS Dur : 156 ms QT Int : 466 ms P-R-T Axes : 052 -13 023 degrees QTc Int : 469 ms SINUS RHYTHM WITH SINUS ARRHYTHMIA WITH 1ST DEGREE A-V BLOCK RIGHT BUNDLE BRANCH BLOCK T WAVE ABNORMALITY, CONSIDER LATERAL ISCHEMIA ABNORMAL ECG WHEN COMPARED WITH ECG OF 05-JUL-2016 11:01, [place] INTERVAL HAS INCREASED Confirmed by JAYSHREE RIVERA MD ([id number]) on 07/06/2016 2:40:38 PM Referred By: Derrick MINOR Confirmed By:JAYSHREE RIVERA MD
[2016-07-06] MEDS: ATORVASTATIN CA 40 MG TABLET (FP) PO SCH (21:35)
[2016-07-07 06:06] LABS: SERUM IRON 23 ug/dL (38-169); TOTAL IRON BINDING CAPACITY 168 ug/dL (250-450); UIBC 145 ug/dL (111-343)
--- NOTE | 2016-07-07 07:57 | PN ---
Progress Note, Physician History of Present Illness: no complaints - Current Medication List Current Medications: Active Medications Aclidinium [place] (Tudorza -) 1 puff IH BID [facility] Last Admin: 07/06/16 21:35 Dose: Not Given Albuterol/Ipratropium (Duoneb -) 1 amp NEB Q6H PRN PRN Reason: SHORTNESS OF BREATH Atorvastatin Calcium (Lipitor -) 40 mg PO HS [facility] Last Admin: 07/06/16 21:35 Dose: 40 mg Carvedilol (Coreg -) 6.25 mg PO BID [facility] Last Admin: 07/06/16 21:35 Dose: 6.25 mg Febuxostat (Uloric -) 40 mg PO DAILY [facility] Last Admin: 07/06/16 10:54 Dose: 40 mg Aztreonam 1 gm/ Dextrose 50 mls @ 100 mls/hr IVPB BID [facility] PRN Reason: Protocol Last Admin: 07/06/16 21:35 Dose: 100 mls/hr Sodium Chloride (Normal Saline -) 1,000 mls @ 42 mls/hr IV ASDIR [facility] Last Admin: 07/06/16 11:15 Dose: 42 mls/hr Ranitidine HCl (Zantac -) 150 mg PO BID [facility] Last Admin: 07/06/16 21:35 Dose: 150 mg Fluticasone/Salmeterol (Advair 100mcg/50mcg -) 1 puff IH BID [facility] Last Admin: 07/06/16 21:36 Dose: Not Given - Objective Vital Signs: Vital Signs Temperature 97.6 F 07/07/16 07:38 Pulse Rate 98 H 07/07/16 07:38 Respiratory Rate 20 07/07/16 07:38 Blood Pressure 114/72 07/07/16 07:38 O2 Sat by Pulse Oximetry (%) 96 07/06/16 21:00 Cardiovascular: Yes: Regular Rate and Rhythm Respiratory: Yes: Regular, CTA Bilaterally Gastrointestinal: Yes: Normal Bowel Sounds, Soft. No: Tenderness Edema: No Labs: INR, PTT INR 1.19 (0.82-1.09) H 07/06/16 06:20 Assessment/Plan - Problems (1) Failure of outpatient treatment Assessment/Plan: ID eval noted--abx pending cultures urine cultures multiple allergies urology eval Code(s): Z78.9 - OTHER SPECIFIED HEALTH STATUS (2) UTI (urinary tract infection) Assessment/Plan: see above Code(s): N39.0 - URINARY TRACT INFECTION, SITE NOT SPECIFIED Qualifiers: Urinary tract infection type: site unspecified Hematuria presence: without hematuria Qualified Code(s): N39.0 - Urinary tract infection, site not specified (3) Urethral stricture Assessment/Plan: cardio clearance urology for dilatation elevated renal function sec to outlet obstruction Code(s): N35.9 - URETHRAL STRICTURE, UNSPECIFIED (4) S/P CABG (coronary artery bypass graft) Assessment/Plan: cardio eval coreg Code(s): Z95.1 - PRESENCE OF AORTOCORONARY BYPASS GRAFT (5) COPD (chronic obstructive pulmonary disease) Assessment/Plan: stable spiriva bronchodilators advair Code(s): J44.9 - CHRONIC OBSTRUCTIVE PULMONARY DISEASE, UNSPECIFIED (6) PAD (peripheral artery disease) Assessment/Plan: s/p fem pop cilostazol Code(s): I73.9 - PERIPHERAL VASCULAR DISEASE, UNSPECIFIED (7) ELSY (acute kidney injury) Assessment/Plan: repeat renal sono ivf Code(s): N17.9 - ACUTE KIDNEY FAILURE, UNSPECIFIED (8) Anemia Assessment/Plan: iron panel feosol vitamin C Code(s): D64.9 - ANEMIA, UNSPECIFIED Qualifiers: Anemia type: due to other cause
[2016-07-07 08:00] LABS: ALBUMIN 2.6 g/dl (3.4-5.0); MAGNESIUM 2.1 mg/dL (1.8-2.4)
[2016-07-07 08:04] LABS: BILIRUBIN,TOTAL 0.3 mg/dL (0.2-1.0); COCKROFT - GAULT 40.48; CREATININE 1.4 mg/dL (0.7-1.3); PHOSPHOROUS 3.1 mg/dL (2.5-4.9); TOT PROT 5.9 g/dl (6.4-8.2)
[2016-07-07] MEDS: CARVEDILOL 6.25 MG TABLET (FP) PO SCH ×2 (10:46→22:22)
[2016-07-07] MEDS: FLUTICASONE/SALMETEROL 100 MCG/50 MCG DISKUS IH SCH ×2 (10:46→22:22)
[2016-07-07] MEDS: ACLIDINIUM BROMIDE 400 MCG/INH AERO.POWD IH SCH ×2 (10:46→22:21)
[2016-07-07] MEDS: RANITIDINE HCL 150 MG TABLET (FP) PO SCH ×2 (10:46→22:22)
[2016-07-07] MEDS: FEBUXOSTAT 40 MG TAB PO SCH (10:47)
[2016-07-07] MEDS: AZTREONAM 1 GM in DEXTROSE 5%-WATER - 50 ML IVPB SCH ×2 (10:47→22:22)
[2016-07-07 11:32] LABS: BASOPHIL 1.1 % (0-2.0); MCH 28.3 pg (25.7-33.7); MCHC 32.6 g/dl (32.0-35.9); MEAN CELL VOLUME 86.9 fl (80-96); MEAN PLT VOLUME 7.5 fl (7.5-11.1); NEUTROPHILS 62.7 % (42.8-82.8); PLATELET COUNT 146 K/MM3 (134-434); RDW 16.3 % (11.9-15.9); WHITE BLOOD COUNT 4.6 K/mm3 (4.0-10.0)
[2016-07-07] MEDS ORDERED: DEXAMETHASONE SOD PHOSPHATE 4 MG/1 ML VIAL ONE (12:44)
--- NOTE | 2016-07-07 13:01 | OP ---
Operative Note - Note: Operative Date: 07/07/16 Pre-Operative Diagnosis: urethral stricture Operation: cysto/dilation of stricture/cystogram/sampson insertion Findings: dense mcgraw urethral stricture Post-Operative Diagnosis: Other Surgeon: Sea Perez Anesthesia: General Estimated Blood Loss (mls): 1 Operative Report Dictated: Yes
[2016-07-07] MEDS ORDERED: ALBUTEROL SO4 2.5/IPRATROPIUM 0.5 INH SOL 3 ML VIAL.NEB. NEB PRN (13:33)
[2016-07-07] MEDS: SODIUM CHLORIDE 1,000 ML IV SCH (15:00)
--- NOTE | 2016-07-07 16:18 | PN ---
Progress Note (short form) - Note Progress Note: Renal Follow up pt seen and examined at the bedside earlier today for cysto today as per urology Vital Signs Temperature 98.5 F 07/07/16 15:05 Pulse Rate 48 L 07/07/16 15:05 Respiratory Rate 16 07/07/16 15:05 Blood Pressure 152/60 07/07/16 15:05 O2 Sat by Pulse Oximetry (%) 99 07/07/16 14:50 Intake & Output 07/04/16 07/05/16 07/06/16 07/07/16 23:59 23:59 23:59 23:59 Intake Total 950 1779 650 Output Total 305 Balance 950 1779 345 Weight 173 lb Gen: NAD, awake and alert CVS: RRR, No M/R Lungs: CTA, no rales or wheeze Abd: NT/ND Ext: Trace to 1+ edema in right LE (chronic) CBC, BMP 07/07/16 06:15 07/07/16 06:15 Current Medications Aclidinium [place] (Tudorza -) 1 puff IH BID [facility]ACHI Albuterol/Ipratropium (Duoneb -) 1 amp NEB Q6H PRN PRN Reason: SHORTNESS OF BREATH Atorvastatin Calcium (Lipitor -) 40 mg PO HS [facility] Carvedilol (Coreg -) 6.25 mg PO BID [facility] Febuxostat (Uloric -) 40 mg PO DAILY [facility] Fentanyl (Sublimaze Injection -) 50 mcg IVPUSH [id number] PRN PRN Reason: PAIN Stop: 07/10/16 13:52 Aztreonam 1 gm/ Dextrose 50 mls @ 100 mls/hr IVPB BID [facility] PRN Reason: Protocol Sodium Chloride (Normal Saline -) 1,000 mls @ 42 mls/hr IV ASDIR [facility] Last Admin: 07/07/16 15:00 Dose: 0 mls Ranitidine HCl (Zantac -) 150 mg PO BID [facility] Fluticasone/Salmeterol (Advair 100mcg/50mcg -) 1 puff IH BID [facility]ACHI A/P 86 year old Gentleman with PMhx of CKD (Cr last admission ~1.5), Prostate Ca s/ p radiation/seeding/Greenlight), AAA Repair, CABG, Artificial Urethral sphincter , recurrent UTI's who presents with complaints of dysuria and hematuria with failed outpatient Abx treatment with BUN/Cr of 38/2. #Acute on Chronic Renal Insufficiency/Urethral stricture Etiology volume depletion in setting of UTI vs. Urinary retention vs. AIN ( bactrium) Renal function now improved s/p cysto that showed diffuse urethral structure sampson inserted Trend urine output and BUN/cr can d/c IVF if tolerating oral diet #UTI with failed outpatient management on Aztreonam #Urethral Stricture s/o cysto with sampson insertion #CAD continue Coreg Prior ECHO reviewed, normal LVEF Sancho barnett
[2016-07-07] MEDS ORDERED: ACETAMINOPHEN 325 MG TABLET (FP) PO PRN ×2 (16:31→16:32)
[2016-07-07] MEDS ORDERED: oxyCODONE HCL 5 MG TABLET PO PRN ×2 (16:31→16:32)
--- NOTE | 2016-07-07 19:14 | PN ---
Progress Note (short form) - Note Progress Note: Chief Complaint: hematuria/pre-op clearance History of Present Illness: s/p cystoscopy and dilation of uretheral stricture today. No complaints. no cp , palps, dizziness, sob, pain. Current Medications Acetaminophen (Tylenol -) 325 mg PO Q6H PRN PRN Reason: PAIN Acetaminophen (Tylenol -) 650 mg PO Q6H PRN PRN Reason: PAIN Aclidinium [place] (Tudorza -) 1 puff IH BID [facility] Albuterol/Ipratropium (Duoneb -) 1 amp NEB Q6H PRN PRN Reason: SHORTNESS OF BREATH Atorvastatin Calcium (Lipitor -) 40 mg PO HS [facility] Carvedilol (Coreg -) 6.25 mg PO BID [facility] Febuxostat (Uloric -) 40 mg PO DAILY [facility] Fentanyl (Sublimaze Injection -) 50 mcg IVPUSH [id number] PRN PRN Reason: PAIN Stop: 07/10/16 13:52 Aztreonam 1 gm/ Dextrose 50 mls @ 100 mls/hr IVPB BID [facility] PRN Reason: Protocol Sodium Chloride (Normal Saline -) 1,000 mls @ 42 mls/hr IV ASDIR [facility] Last Admin: 07/07/16 15:00 Dose: 0 mls Oxycodone HCl (Roxicodone -) 5 mg PO Q6H PRN PRN Reason: PAIN SCALE 1-5 Oxycodone HCl (Roxicodone -) 10 mg PO Q6H PRN PRN Reason: PAIN SCALE 6-10 Ranitidine HCl (Zantac -) 150 mg PO BID [facility] Fluticasone/Salmeterol (Advair 100mcg/50mcg -) 1 puff IH BID [facility] Vital Signs - 24 hr 07/06/16 07/06/16 07/07/16 21:00 22:00 06:00 Temperature 98.1 F Pulse Rate 55 L 59 L Respiratory 20 20 20 Rate Blood Pressure 110/51 124/59 O2 Sat by Pulse 96 Oximetry (%) 07/07/16 07/07/16 07/07/16 07:38 09:00 10:00 Temperature 97.6 F 98 F Pulse Rate 98 H 60 Respiratory 20 20 20 Rate Blood Pressure 114/72 129/56 O2 Sat by Pulse 96 Oximetry (%) 07/07/16 07/07/16 07/07/16 11:39 13:04 13:20 Temperature 98 F 97.8 F Pulse Rate 67 61 53 L Respiratory 20 20 16 Rate Blood Pressure 149/95 150/68 146/60 O2 Sat by Pulse 100 100 Oximetry (%) 07/07/16 07/07/16 07/07/16 13:35 13:50 14:05 Temperature Pulse Rate 52 L 50 L 50 L Respiratory 16 16 16 Rate Blood Pressure 149/53 129/53 136/43 O2 Sat by Pulse 100 100 96 Oximetry (%) 07/07/16 07/07/16 07/07/16 14:20 14:35 14:50 Temperature Pulse Rate 52 L 51 L 52 L Respiratory 14 14 16 Rate Blood Pressure 134/50 135/52 130/52 O2 Sat by Pulse 96 100 99 Oximetry (%) 07/07/16 07/07/16 15:05 18:45 Temperature 98.5 F 97.7 F Pulse Rate 48 L 55 L Respiratory 16 18 Rate Blood Pressure 152/60 138/57 O2 Sat by Pulse Oximetry (%) Intake & Output 07/05/16 07/06/16 07/07/16 07/08/16 07:59 07:59 07:59 07:59 Intake Total 5145 984 8428 Output Total 455 Balance 1850 879 665 Weight 173 lb Constitutional: Yes: Well Nourished, No Distress Eyes: No: Sclera Icterus HENT: No: Nasal Congestion Neck: No: Decreased ROM Respiratory: Yes: CTA Bilaterally. No: Accessory Muscle Use Gastrointestinal: Yes: Normal Bowel Sounds. No: Distention, Hepatomegaly, Palpable Mass, Tenderness Cardiovascular: Yes: Regular Rate and Rhythm JVD: No Carotid Bruit: No PMI: Non-Displaced Heart Sounds: Yes: S1, S2. No: Gallop Murmur: No: Systolic Murmur, Diastolic Murmur Musculoskeletal: Yes: Other (No kyphosis) Extremities: No: Cold, Cyanosis Edema: No Peripheral Pulses: 2+ Left Carotid, 2+ Right Carotid, 2+ Left Doralis Pedis, 2+ Right Dorsalis Pedis Integumentary: No: Jaundice Neurological: Yes: Alert, Oriented (x3) Psychiatric: No: Agitated - Other Data Labs, Other Data: CBC, BMP 07/07/16 06:15 07/07/16 06:15 Laboratory Tests 07/07/16 06:15 Magnesium 2.1 Albumin 2.6 L ekg 07/05: NSR, RBBB; no path q's; nonsp ST-Ts--no sig change vs prior 06/2014) Assessment/Plan MPI 09/2015 (joe): No ischemic ST-T changes. No evidence of ischemia. ( Diaphragm attenuation artifact present.) Normal LVEF. Normal LV cavity size with no transient dilation. Echo 03/08: nl LVSF; nl RV; mod LAE; mil MR/TR; RVSP 40-50; borderline ao root dilation; small peric effusion 86 yo with h/o CAD s/p CABG, HTN, HL, PAD s/p fem-pop x multiple, AAA repair, copd, GERD, CKD, gout, prostate CA, abdominal adhesions, hernias, colectomy, s/ p Artificial Urethral Sphincter who presents with hematuria/failed outpt abx mgmt of UTI. Preop CV eval/cystoscopy and dilation of urethral stricture 07/07: -RCRI = 1, decr'd functional status -no s/sx of active cv dz. --> intermediate risk for periop CV complications from cysto procedures (or any other surgeries) -ok to hold ASA pre and post interventions as long as is needed - HR running low s/p anesthesia, ok to hold carvedilol until it increases. ELSY on CKD: - Baseline creat ranges 1.3-1.5, higher here. - Renal input reviewed: etiology: volume depletion in setting of UTI vs. urinary retention vs. AIN (bactrium) - Plan per renal team. Improved s/p IVF. Remains euvolemic CAD s/p CABG. - NO ISCHEMIA 2015. NO ANGINAL SX'S HISTORY FOR MANY YRS - OMT: STATIN, BB DOING (can hold this evening as mentioned above). (DANICA previously deferred). Resume ASA when appropriate per urology Essential hypertension - WELL CONTROLLED (PRIOR AAA REPAIR, SMALL RESIDUAL); - CONT HOME MEDS, adjustments as mentioned Secondary pulmonary hypertension - RVSP ESTIMATED 40-50 ON PRIOR HOSP ECHO 03/08. SUSPECT SEC TO HYPOXIC LUNG DZ/ COPD. DOUBT DIAST CHF, NEVER HAD CLINICAL FINDINGS SUGGESTIVE OF CHF. - currently asx, OUTPT F/U DOING PAD - s/p PRIOR RIGHT FEM POP, NOW OCCLUDED WITH DIFFUSE DZ PROXIMAL AND DISTAL TO GRAFT, LIKELY INFLOW DZ. ALSO INFLOW DZ LIKELY ON LEFT. - ON CILOSTAZOL, can hold for now in setting of procedure. Resume on discharge. 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 - 4.[address] SCAN 07/04, STABLE VS PRIOR. 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 - No acute exacerbation. Inhaler regimen per pmd. Hypercholesterolemia - WELL CONTROLLED ON OUTPT LABS. CONT outpatient SIMVA 40 (on atorva here)
[2016-07-07] MEDS ORDERED: ATORVASTATIN CA 40 MG TABLET (FP) PO SCH (22:00)
[2016-07-08 07:23] LABS: BASOPHIL 0.4 % (0-2.0); EOSINOPHIL 0.2 % (0-4.5); MCH 28.5 pg (25.7-33.7); MCHC 32.9 g/dl (32.0-35.9); MEAN CELL VOLUME 86.8 fl (80-96); MEAN PLT VOLUME 7.2 fl (7.5-11.1); NEUTROPHILS 86.8 % (42.8-82.8); PLATELET COUNT 158 K/MM3 (134-434); RDW 16.1 % (11.9-15.9); WHITE BLOOD COUNT 8.7 K/mm3 (4.0-10.0)
[2016-07-08 07:58] LABS: COCKROFT - GAULT 47.22; CREATININE 1.2 mg/dL (0.7-1.3)
[2016-07-08] MEDS ORDERED: PT OWN MED DRAWER 7, Y5N ONE (09:34)
[2016-07-08] MEDS: RANITIDINE HCL 150 MG TABLET (FP) PO SCH (09:35)
[2016-07-08] MEDS: CARVEDILOL 6.25 MG TABLET (FP) PO SCH (09:35)
[2016-07-08] MEDS: AZTREONAM 1 GM in DEXTROSE 5%-WATER - 50 ML IVPB SCH (09:36)
[2016-07-08] MEDS: SODIUM CHLORIDE 1,000 ML IV SCH (09:40)
[2016-07-08] MEDS ORDERED: FEBUXOSTAT 40 MG TAB PO SCH (10:00)
--- NOTE | 2016-07-08 10:15 | PN ---
Progress Note, Physician Chief Complaint: SITTING IN CHAIR COMFORTABLE ON IV ABX , MORALES IN PLACE - Current Medication List Current Medications: Active Medications Acetaminophen (Tylenol -) 325 mg PO Q6H PRN PRN Reason: PAIN Acetaminophen (Tylenol -) 650 mg PO Q6H PRN PRN Reason: PAIN Aclidinium [place] (Tudorza -) 1 puff IH BID [facility] Last Admin: 07/07/16 22:21 Dose: Not Given Albuterol/Ipratropium (Duoneb -) 1 amp NEB Q6H PRN PRN Reason: SHORTNESS OF BREATH Atorvastatin Calcium (Lipitor -) 40 mg PO HS [facility] Last Admin: 07/07/16 22:22 Dose: 40 mg Carvedilol (Coreg -) 6.25 mg PO BID [facility] Last Admin: 07/08/16 09:35 Dose: 6.25 mg Febuxostat (Uloric -) 40 mg PO DAILY [facility] Last Admin: 07/08/16 09:35 Dose: 40 mg Fentanyl (Sublimaze Injection -) 50 mcg IVPUSH [id number] PRN PRN Reason: PAIN Stop: 07/10/16 13:52 Aztreonam 1 gm/ Dextrose 50 mls @ 100 mls/hr IVPB BID [facility] PRN Reason: Protocol Last Admin: 07/08/16 09:36 Dose: 100 mls/hr Sodium Chloride (Normal Saline -) 1,000 mls @ 42 mls/hr IV ASDIR [facility] Last Admin: 07/08/16 09:40 Dose: 42 mls/hr Oxycodone HCl (Roxicodone -) 5 mg PO Q6H PRN PRN Reason: PAIN SCALE 1-5 Oxycodone HCl (Roxicodone -) 10 mg PO Q6H PRN PRN Reason: PAIN SCALE 6-10 Ranitidine HCl (Zantac -) 150 mg PO BID [facility] Last Admin: 07/08/16 09:35 Dose: 150 mg Fluticasone/Salmeterol (Advair 100mcg/50mcg -) 1 puff IH BID [facility] Last Admin: 07/07/16 22:22 Dose: Not Given - Objective Vital Signs: Vital Signs Temperature 97.7 F 07/08/16 06:00 Pulse Rate 51 L 07/08/16 06:00 Respiratory Rate 16 07/08/16 06:00 Blood Pressure 126/50 07/08/16 06:00 O2 Sat by Pulse Oximetry (%) 98 07/07/16 22:00 Constitutional: Yes: No Distress Eyes: Yes: WNL HENT: Yes: WNL Neck: Yes: WNL Cardiovascular: Yes: WNL Respiratory: Yes: WNL Gastrointestinal: Yes: WNL Genitourinary: Yes: Morales Present Musculoskeletal: Yes: WNL Extremities: Yes: WNL Edema: No Peripheral Pulses WNL: Yes Integumentary: Yes: WNL Wound/Incision: Yes: Clean/Dry Neurological: Yes: WNL ...Motor Strength: WNL Psychiatric: Yes: WNL Labs: CBC, BMP 07/08/16 06:25 07/08/16 06:25 INR, PTT INR 1.19 (0.82-1.09) H 07/06/16 06:20 Problem List - Problems (1) UTI (urinary tract infection) Code(s): N39.0 - URINARY TRACT INFECTION, SITE NOT SPECIFIED Qualifiers: Urinary tract infection type: site unspecified Hematuria presence: without hematuria Qualified Code(s): N39.0 - Urinary tract infection, site not specified (2) Urethral stricture Code(s): N35.9 - URETHRAL STRICTURE, UNSPECIFIED (3) Abdominal pain in male Code(s): R10.9 - UNSPECIFIED ABDOMINAL PAIN Assessment/Plan PROCEDURE COMPLETED BY DR SHERIDAN URETHRAL STRICTURE RELEASED IV ABX MORALES IN PLACE F/U WITH INSTRUCTIONS ID [email or web address]
[2016-07-08] MEDS: ACLIDINIUM BROMIDE 400 MCG/INH AERO.POWD IH SCH (11:20)
[2016-07-08] MEDS: FLUTICASONE/SALMETEROL 100 MCG/50 MCG DISKUS IH SCH (11:21)
--- NOTE | 2016-07-08 12:58 | PN ---
Progress Note (short form) - Note Progress Note: ID Spoke with Dr Houser and patients daughter regarding clinical cource and antibiotic management Selected Entries 07/08/16 10:00 Temperature 97.6 F Pulse Rate 58 L Respiratory 18 Rate Blood Pressure 131/59 Microbiology 07/06/16 16:45 Urine - Urine Clean Catch Urine Culture - Final NO GROWTH OBTAINED 07/05/16 10:51 Urine - Urine Clean Catch Urine Culture - Final Contaminated: Please Repeat 07/05/16 09:40 Blood - Peripheral Venous Blood Culture - Preliminary NO GROWTH OBTAINED AFTER 72 HOURS, INCUBATION TO CONTINUE FOR 2 DAYS. 07/05/16 09:35 Blood - Peripheral Venous Blood Culture - Preliminary NO GROWTH OBTAINED AFTER 72 HOURS, INCUBATION TO CONTINUE FOR 2 DAYS. Laboratory Tests 07/08/16 06:25 WBC 8.7 D Hct 30.4 L Plt Count 158 Assessment Post urethral dilatation Blood urine c/s negative no fever normal WBC Plan Can discharge from ID standpoint( macrobid) Ellen ROACH
--- NOTE | 2016-07-08 12:59 | PN ---
Progress Note (short form) - Note Progress Note: feels well s/p cysto/dilatation with sampson insertion yesterday Vital Signs Period Temp Pulse Resp BP Sys/Child Pulse Ox Last 24 Hr 97.6 F-98.5 F 48-62 14-20 126-152/43-68 96-100 cor-rrr lungs clear abd soft,nt ext no edema +sampson CBC, BMP 07/08/16 06:25 07/08/16 06:25 Current Medications Acetaminophen (Tylenol -) 325 mg PO Q6H PRN PRN Reason: PAIN Acetaminophen (Tylenol -) 650 mg PO Q6H PRN PRN Reason: PAIN Aclidinium [place] (Tudorza -) 1 puff IH BID [facility] Last Admin: 07/08/16 11:20 Dose: 1 puff Albuterol/Ipratropium (Duoneb -) 1 amp NEB Q6H PRN PRN Reason: SHORTNESS OF BREATH Atorvastatin Calcium (Lipitor -) 40 mg PO HS [facility] Last Admin: 07/07/16 22:22 Dose: 40 mg Carvedilol (Coreg -) 6.25 mg PO BID [facility] Last Admin: 07/08/16 09:35 Dose: 6.25 mg Febuxostat (Uloric -) 40 mg PO DAILY [facility] Last Admin: 07/08/16 09:35 Dose: 40 mg Fentanyl (Sublimaze Injection -) 50 mcg IVPUSH [id number] PRN PRN Reason: PAIN Stop: 07/10/16 13:52 Aztreonam 1 gm/ Dextrose 50 mls @ 100 mls/hr IVPB BID [facility] PRN Reason: Protocol Last Admin: 07/08/16 09:36 Dose: 100 mls/hr Sodium Chloride (Normal Saline -) 1,000 mls @ 42 mls/hr IV ASDIR [facility] Last Admin: 07/08/16 09:40 Dose: 42 mls/hr Oxycodone HCl (Roxicodone -) 5 mg PO Q6H PRN PRN Reason: PAIN SCALE 1-5 Oxycodone HCl (Roxicodone -) 10 mg PO Q6H PRN PRN Reason: PAIN SCALE 6-10 Ranitidine HCl (Zantac -) 150 mg PO BID [facility] Last Admin: 07/08/16 09:35 Dose: 150 mg Fluticasone/Salmeterol (Advair 100mcg/50mcg -) 1 puff IH BID [facility] Last Admin: 07/08/16 11:21 Dose: 1 puff Microbiology 07/06/16 16:45 Urine - Urine Clean Catch Urine Culture - Final NO GROWTH OBTAINED 07/05/16 09:35 Blood - Peripheral Venous Blood Culture - Preliminary NO GROWTH OBTAINED AFTER 72 HOURS, INCUBATION TO CONTINUE FOR 2 DAYS. 07/05/16 09:40 Blood - Peripheral Venous Blood Culture - Preliminary NO GROWTH OBTAINED AFTER 72 HOURS, INCUBATION TO CONTINUE FOR 2 DAYS. 07/05/16 10:51 Urine - Urine Clean Catch Urine Culture - Final Contaminated: Please Repeat a/p s/p cysto and uretharal dialtation cultures negative- was on bactrim prior to admission awaiting urology fu would consider d/c all antibiotics or switch to po bactrim again if urology feels further antibiotics are needed please call back if needed
--- NOTE | 2016-07-08 13:54 | PN ---
Progress Note (short form) - Note Progress Note: Renal Follow up Pt seen and examined at the bedside awake and alert no acute complaints sampson in place no fever or chills Vital Signs Temperature 97.6 F 07/08/16 10:00 Pulse Rate 58 L 07/08/16 10:00 Respiratory Rate 18 07/08/16 10:00 Blood Pressure 131/59 07/08/16 10:00 O2 Sat by Pulse Oximetry (%) 98 07/07/16 22:00 Intake & Output 07/05/16 07/06/16 07/07/16 07/08/16 23:59 23:59 23:59 23:59 Intake Total 950 1779 1720 685 Output Total 905 850 Balance 950 1779 815 -165 Weight 173 lb Gen: NAD, awake and alert CVS: RRR, No M/R Lungs: CTA, no rales or wheeze Abd: NT/ND Ext: Trace to 1+ edema in right LE (chronic) CBC, BMP 07/08/16 06:25 07/08/16 06:25 Laboratory Tests 07/08/16 06:25 Magnesium 2.0 Current Medications Acetaminophen (Tylenol -) 325 mg PO Q6H PRN PRN Reason: PAIN Acetaminophen (Tylenol -) 650 mg PO Q6H PRN PRN Reason: PAIN Aclidinium [place] (Tudorza -) 1 puff IH BID [facility] Last Admin: 07/08/16 11:20 Dose: 1 puff Albuterol/Ipratropium (Duoneb -) 1 amp NEB Q6H PRN PRN Reason: SHORTNESS OF BREATH Atorvastatin Calcium (Lipitor -) 40 mg PO HS [facility] Last Admin: 07/07/16 22:22 Dose: 40 mg Carvedilol (Coreg -) 6.25 mg PO BID [facility] Last Admin: 07/08/16 09:35 Dose: 6.25 mg Febuxostat (Uloric -) 40 mg PO DAILY [facility] Last Admin: 07/08/16 09:35 Dose: 40 mg Fentanyl (Sublimaze Injection -) 50 mcg IVPUSH [id number] PRN PRN Reason: PAIN Stop: 07/10/16 13:52 Aztreonam 1 gm/ Dextrose 50 mls @ 100 mls/hr IVPB BID [facility] PRN Reason: Protocol Last Admin: 05/19/17 09:36 Dose: 100 mls/hr Sodium Chloride (Normal Saline -) 1,000 mls @ 42 mls/hr IV ASDIR [facility] Last Admin: 07/08/16 09:40 Dose: 42 mls/hr Oxycodone HCl (Roxicodone -) 5 mg PO Q6H PRN PRN Reason: PAIN SCALE 1-5 Oxycodone HCl (Roxicodone -) 10 mg PO Q6H PRN PRN Reason: PAIN SCALE 6-10 Ranitidine HCl (Zantac -) 150 mg PO BID [facility] Last Admin: 07/08/16 09:35 Dose: 150 mg Fluticasone/Salmeterol (Advair 100mcg/50mcg -) 1 puff IH BID [facility] Last Admin: 07/08/16 11:21 Dose: 1 puff A/P 86 year old Gentleman with PMhx of CKD (Cr last admission ~1.5), Prostate Ca s/ p radiation/seeding/Greenlight), AAA Repair, CABG, Artificial Urethral sphincter , recurrent UTI's who presents with complaints of dysuria and hematuria with failed outpatient Abx treatment with BUN/Cr of 38/2. #Acute on Chronic Renal Insufficiency/Urethral stricture Renal function with significant improvement Can D/c IVF Oral intake as tolerated Sampson management as per urology #UTI with failed outpatient management on Aztreonam Further Abx as per ID #Urethral Stricture s/o cysto with sampson insertion #CAD continue Coreg Sancho barnett
--- NOTE | 2016-07-08 14:40 | DS ---
Physical Examination Vital Signs: Vital Signs Temperature 97.6 F 07/08/16 10:00 Pulse Rate 58 L 07/08/16 10:00 Respiratory Rate 18 07/08/16 10:00 Blood Pressure 131/59 07/08/16 10:00 O2 Sat by Pulse Oximetry (%) 98 07/07/16 22:00 Findings/Remarks: discussed with ID dr tyler will dc home with sampson Constitutional: Yes: No Distress Labs: CBC, BMP 07/08/16 06:25 07/08/16 06:25 Discharge Summary Reason For Visit: UTI Current Active Problems ELSY (acute kidney injury) (Acute) Failure of outpatient treatment (Acute) UTI (urinary tract infection) (Acute) Urethral stricture (Acute) Procedures: Principal: cystoscopy urethra stricture repair Hospital Course: admitted, seen by gu procedure done, stricture repaired. f/u outpatient with gu , no abx per ID, f/u next week with gu maintain sampson catheter Condition: Improved - Instructions Diet, Activity, Other Instructions: low salt Referrals: Magali Sandoval MD [Primary Care Provider] - Disposition: HOME - Home Medications Comprehensive Discharge Medication List: Ambulatory Orders Febuxostat [Uloric -] 40 mg PO DAILY #0 11/03/12 Pantoprazole Sodium [Protonix -] 40 mg PO DAILY #0 tablet.ec 11/03/12 Simvastatin [Zocor -] 40 mg PO DAILY 06/24/13 Propylene Glycol [Systane Balance] 2 drop OU BID 06/14/14 Cilostazol [Pletal -] 100 mg PO BID #30 tablet 06/17/14 Ascorbic Acid [Vitamin C -] 500 mg PO DAILY tablet 07/20/14 Carvedilol [Coreg] 12.5 mg PO DAILY 08/26/14 Cetirizine HCl [Zyrtec -] 10 mg PO DAILY 08/26/14 Fesoterodine Fumarate [Toviaz] 8 mg PO DAILY 08/26/14 Cranberry Fruit Extract [Theracran Hp For Kids] 50 mg PO DAILY 03/17/16 Albuterol 2.5/Ipratropium 0.5 [Duoneb -] 1 amp NEB QIDR #120 amp 03/19/16 Fluticasone/Salmeterol [Advair 250-50 Diskus] 1 each IH BID #1 blst.w.dev Nebulizer Accessories [A.i.r.s. Nebulizer] 1 each QID #2 kit 03/19/16 Tiotropium [place] [Spiriva] 1 puff IH DAILY #1 inh 03/19/16 Aspirin [ASA -] 81 mg PO DAILY 07/05/16 Cyclosporine [Restasis] 1 each OU DAILY 07/05/16
[2016-07-08 15:49] VITALS: BP 116/45; PULSE 60; TEMP 97.8
--- NOTE | 2016-07-08 17:06 | OP ---
DATE OF OPERATION: 07/07/2016 PROCEDURE: Cystoscopy, dilation of stricture and cystogram PREOPERATIVE DIAGNOSIS: Urethral stricture POSTOPERATIVE DIAGNOSIS: Very dense panurethral strictures. SURGEON: Maggie Cardenas MD COMPLICATIONS: There were no complications. ESTIMATED BLOOD LOSS: Minimal. INDICATION: Patient is an 86-year-old male with history of prostate cancer status post radiation and brachytherapy. History of GreenLight laser of the prostate, history of artificial urethral stricture that has been removed with recurrent UTIs, now admitted for resistant UTI and plan for dilation of stricture. Risks, benefits and alternatives were discussed. DESCRIPTION OF PROCEDURE: Patient was then taken to the OR and placed supine on the operating table. Cardiac monitoring administered, general anesthesia then established . He was prepped and draped in the dorsal lithotomy position. The flexible cystoscope was inserted into the urethra. The meatus and was narrowed. With gentle dilation, the flexible cystoscope was then inserted into the urethra. At this point, a guidewire was advanced because the scope could not be advanced because of the significant narrowing in the pendulous urethra. The guidewire was advanced. The scope was then removed, and an [id number] ureteral catheter was advanced. Using fluoroscopy, contrast was injected to confirm placement of the ureteral catheter in the bladder via a cystogram. A guidewire was then advanced back over the ureteral catheter, and the ureteral catheter removed, and over the existing guidewire, the urethra was dilated from 12 Stateless to 18 Stateless, and subsequently, a 16-Stateless Mayo tip catheter was then placed to straight drainage. Patient was awoken from anesthesia and transferred to the recovery room in stable condition. MAGGIE CARDENAS M.D. [id number]
== END 2016-07-08 18:05 | disposition home or self-care (01) | DRG 671 ==
LOC: JER 07:53 → JERBED 09:28 → J5S 13:54
PROVIDERS: ADMIT Family Medicine; ATTEND Family Medicine
PROC: 0T9D80Z Drainage of Urethra with Drainage Device, Via Natural or Artificial Opening Endoscopic (ICD-10-PCS; 2016-07-07)
PROC: BT1BYZZ Fluoroscopy of Bladder and Urethra using Other Contrast (ICD-10-PCS; 2016-07-07)
PROC: 0T7D8ZZ Dilation of Urethra, Via Natural or Artificial Opening Endoscopic (ICD-10-PCS; principal; 2016-07-07 12:00)
DX: N39.0 Urinary tract infection, site not specified (principal); N17.9 Acute kidney failure, unspecified; M10.9 Gout, unspecified; N35.9 Urethral stricture, unspecified; J44.9 Chronic obstructive pulmonary disease, unspecified; I12.9 Hypertensive chronic kidney disease with stage 1 through stage 4 chronic kidney disease, or unspecified chronic kidney disease; Z95.1 Presence of aortocoronary bypass graft; I73.9 Peripheral vascular disease, unspecified; D64.9 Anemia, unspecified; I25.10 Atherosclerotic heart disease of native coronary artery without angina pectoris; N18.9 Chronic kidney disease, unspecified; Z85.46 Personal history of malignant neoplasm of prostate; Z88.0 Allergy status to penicillin
CPT/HCPCS: 36415; 71020-TC; 76000-TC; 76775-TC; 76856-TC; 80048; 80053; 81003; 81015; 82570; 82728; 83540; 83550; 83735; 84100; 84156; 84300; 84540; 84550; 85025; 85610; 85730; 86850; 86900; 86901; 87040; 87086; 93005; 93010; 94760; 99284-25

== ENCOUNTER 2016-07-19 10:53 | Inpatient (IN) | payer OTHER, BC ==
--- NOTE | 2016-07-19 11:33 | PDOC ---
History of Present Illness - General History Source: Patient Exam Limitations: No Limitations - History of Present Illness Initial Comments: 85 y/o M w/sig PMH of Abdominal adhesions, hernias, AAA repair with CABG, Colectomy, Prostate Cancer (s/p seating & Green Light Procedure), AAA repair, Lower Esophageal Spasm, GOUT, Artificial Renal Sphincter presents to the ER with c/o loose stools. Pt was recently discharged for urethral stricture repair on 07/08/16 and was treated with aztreonam. Pt was doing well after discharge but began having loose stool 10-15 times per day from Monday into Monday and which tapered down and then again began having loose stool 10-15 times per day from yesterday into today. Stool is described as soft and not watery. He had some streaking of blood in stool yesterday night but feels it is from having to wipe often and not from blood in stool as it is not present this morning. He also c/o lower abdominal pain that is 5/10 and sharp. He also has foul smelling urine as per daughter. Pt complaining of lower back pain that started 2-3 days ago and is making it extremely uncomfortable for him to lay at this time. He had chills yesterday but not today. He denies N/V/F, chest pain, sob, sick contacts. PCP: Dr. Woo <Cesar Glover - Last Filed: 07/19/16 15:48> <Sadia Allan - Last Filed: 07/19/16 19:06> - General Chief Complaint: Diarrhea Stated Complaint: POST-SURG/ COMPLICATIONS Time Seen by Provider: 07/19/16 11:02 Past History - Past Medical History Anemia: No Cancer: Yes (prostate ca with radiation seeds, colon ca) Cardiac Disorders: Yes (IA WITH CABG, AAA REPAIR, FEM-POP BYPASS X 3) COPD: Yes GI Disorders: (GERD) Disorders: (Yes;) HTN: Yes Hypercholesterolemia: Yes Suicide Attempt (Hx): No Thyroid Disease: No - Surgical History Abdominal Surgery: Yes (HERNIA, COLECTOMY) Appendectomy: No Cardiac Surgery: Yes (AAA, BYPASS SURGERY) Cholecystectomy: No Lung Surgery: No Neurologic Surgery: No Orthopedic Surgery: No - Immunization History Td Vaccination: Yes TDAP Vaccination: Yes Immunization Up to Date: Yes - Psycho/Social/Smoking Cessation Hx Anxiety: No Suicidal Ideation: No Smoking Status: No Smoking History: Never smoked Have you smoked in the past 12 months: No Number of Cigarettes Smoked Daily: 80 If you are a former smoker, when did you quit?: 1979 Information on smoking cessation initiated: No Hx Alcohol Use: No Drug/Substance Use Hx: No Substance Use Type: None Hx Substance Use Treatment: No <Cesar Glover - Last Filed: 07/19/16 15:48> <Sadia Allan - Last Filed: 07/19/16 19:06> - Past Medical History Allergies/Adverse Reactions: Allergies Allergy/AdvReac Type Severity Reaction Status Date / Time beeswax Allergy Severe Verified 07/19/16 14:21 cephalexin monohydrate Allergy Severe Verified 07/19/16 14:21 [From Keflex] honey Allergy Severe Verified 07/19/16 14:21 Penicillins Allergy Severe Verified 07/19/16 14:21 tetracycline [Tetracycline] Allergy Severe Verified 07/19/16 14:21 Nitrofuran Analogues Allergy Verified 07/19/16 14:21 ondansetron HCl AdvReac Unknown Verified 07/19/16 14:21 [From Zofran (as hydrochloride)] papertape Allergy Uncoded 07/19/16 14:21 Home Medications: Ambulatory Orders Pantoprazole Sodium [Protonix -] 40 mg PO DAILY #0 tablet.ec 11/03/12 Simvastatin [Zocor -] 40 mg PO DAILY 06/24/13 Cilostazol [Pletal -] 100 mg PO BID #30 tablet 06/17/14 Carvedilol [Coreg] 20 mg PO DAILY 08/26/14 Cetirizine HCl [Zyrtec -] 10 mg PO DAILY 08/26/14 Fesoterodine Fumarate [Toviaz] 8 mg PO DAILY 08/26/14 Cranberry Fruit Extract [Theracran Hp For Kids] 36 mg PO DAILY 03/17/16 Aspirin [ASA -] 81 mg PO DAILY 07/05/16 Febuxostat [Uloric -] 80 mg PO DAILY 07/19/16 Ferrous Sulfate [Children's Ferrous Sulfate] 65 mg PO ASDIR 07/19/16 Review of Systems - Review of Systems Able to Perform ROS?: Yes Comments:: GENERAL/CONSTITUTIONAL: +chills No: fever, weakness, loss of appetite. HEAD, EYES, EARS, NOSE AND THROAT: No: change in vision, ear pain, discharge, sore throat CARDIOVASCULAR: No: chest pain, lightheadedness, palpitations RESPIRATORY: No: cough, shortness of breath GASTROINTESTINAL: +abdominal pain, diarrhea, blood in stool (yesterday) No: nausea, vomiting, rectal bleeding, constipation. GENITOURINARY: +foul smelling urine No: dysuria, hematuria, frequency, urgency, flank pain. MUSCULOSKELETAL: +lower back pain No: neck pain, joint pain, muscle swelling or pain SKIN: No: lesions, pallor, rash or easy bruising. NEUROLOGIC: No: headache <Cesar Glover - Last Filed: 07/19/16 15:48> *Physical Exam - Vital Signs Last Vital Signs Temp Pulse Resp BP Pulse Ox 98 F 77 19 138/68 96 07/19/16 10:58 07/19/16 10:58 07/19/16 10:58 07/19/16 10:58 07/19/16 10:58 - Physical Exam Comments: GENERAL: The patient is in no acute distress. HEAD: Normal with no signs of trauma. EYES: EOMI, sclera anicteric, conjunctiva clear. ENT: Ears normal, nares patent, Moist mucous membranes. NECK: Normal range of motion, supple LUNGS: Breath sounds equal, clear to auscultation bilaterally. No wheezes, and no crackles. HEART:Regular rate and rhythm, normal S1 and S2 ABDOMEN: +Distended, Hyperactive bowel sounds, Diffuse pain with palpation. EXTREMITIES: Normal range of motion, no edema. No clubbing or cyanosis. No erythema, or tenderness. NEUROLOGICAL: Cranial nerves II through XII grossly intact. Normal speech. No focal neurological deficits. MUSCULOSKELETAL: +CVA Tenderness. Spine nontender to palpation SKIN: Warm, Dry, normal turgor, no rashes or lesions noted. <Cesar Glover - Last Filed: 07/19/16 15:48> - Vital Signs Last Vital Signs Temp Pulse Resp BP Pulse Ox 98 F 79 19 108/61 96 07/19/16 18:55 07/19/16 18:55 07/19/16 18:55 07/19/16 18:55 07/19/16 18:55 <Sadia Allan - Last Filed: 07/19/16 19:06> ED Treatment Course - LABORATORY CBC & Chemistry Diagram: 07/19/16 12:25 07/19/16 12:25 <Cesar Glover - Last Filed: 07/19/16 15:48> - LABORATORY CBC & Chemistry Diagram: 07/19/16 12:25 07/19/16 12:25 - ADDITIONAL ORDERS Additional order review: Laboratory Results 07/19/16 07/19/16 12:25 12:25 Sodium 131 L Potassium 4.3 Chloride 101 D Carbon Dioxide 21 Anion Gap 9 BUN 59 H D Creatinine 3.8 H D Creat Clearance w eGFR 15.11 Random Glucose 97 Calcium 8.2 L Total Bilirubin 0.4 D AST 27 D ALT 23 D Alkaline Phosphatase 82 D Total Protein 6.4 Albumin 2.8 L Urine Color Ltyellow Urine Appearance Clear Urine pH 6.0 Urine Protein Negative Urine Glucose (UA) Negative Urine Ketones Negative Urine Blood 3+ H Urine Nitrite Negative Urine Bilirubin Negative Urine Urobilinogen Negative Ur Leukocyte Esterase 3+ H Stool Occult Blood Negative 07/19/16 12:25 RBC 3.44 L MCV 85.6 MCHC 33.0 RDW 16.8 H MPV 7.9 Neutrophils % 91.2 H Lymphocytes % 3.0 L D Monocytes % 4.4 Eosinophils % 0.8 D Basophils % 0.6 - Medications Given in the ED: ED Medications Discontinued Medications Generic Name Dose Route Start Last Admin Trade Name Freq PRN Reason Stop Dose Admin Morphine Sulfate 2 mg 07/19/16 12:13 07/19/16 12:25 Morphine Injection - IVPUSH 07/19/16 12:14 2 mg ONCE ONE Administration Morphine Sulfate 2 mg 07/19/16 12:56 07/19/16 13:03 Morphine Injection - IVPUSH 07/19/16 12:57 2 mg ONCE ONE Administration Oxycodone HCl 10 mg 07/19/16 13:38 07/19/16 14:20 Roxicodone - PO 07/19/16 13:39 10 mg ONCE ONE Administration <Sadia Allan - Last Filed: 07/19/16 19:06> Medical Decision Making - Medical Decision Making 85 y/o M w/sig PMH of Abdominal adhesions, hernias, AAA repair with CABG, Colectomy, Prostate Cancer (s/p seating & Green Light Procedure), AAA repair, Lower Esophageal Spasm, GOUT, Artificial Renal Sphincter presents to the ER with c/o loose stools. Pt was recently discharged for urethral stricture repair on 07/08/16 and was treated with aztreonam. Pt was doing well after discharge but began having loose stool 10-15 times per day from Monday into Monday and which tapered down and then again began having loose stool 10-15 times per day from yesterday into today. Stool is described as soft and not watery. He had some streaking of blood in stool yesterday night but feels it is from having to wipe often and not from blood in stool as it is not present this morning. He also c/o lower abdominal pain that is 5/10 and sharp. He also has foul smelling urine as per daughter. Pt complaining of lower back pain that started 2-3 days ago and is making it extremely uncomfortable for him to lay at this time. He had chills yesterday but not today. He denies N/V/F, chest pain, sob, sick contacts. 07/19/16 11:46 Will order: CBCD, CMP, UA, EKG, C. Diff, stool for occult blood, EKG 2 mg morphine for pain. 07/19/16 13:35 Back pain still uncontrolled with 2 additional mg of morphine. Will give oxycodone 10 mg PO 07/19/16 14:[address] Perez regarding straight cathing pt as he recent had urethral stricture repair done. Recommended to use 12 or 14 greenlandic straight cath if necessary. 07/19/16 15:45 Cr 3.8, baseline 1.6 WBC 11.2 Na 131 Will likely require admission for acute renal failure. Pt's PCP on last admission was Dr. Sandoval, at this time pt states he is in process of changing primary to Dr. Woo <Cesar Glover - Last Filed: 07/19/16 15:48> *DC/Admit/Observation/Transfer <Cesar Glover - Last Filed: 07/19/16 15:48> - Discharge Dispostion Admit: Yes <Sadia Allan - Last Filed: 07/19/16 19:06> Diagnosis at time of Disposition: Acute renal failure Qualifiers: Acute renal failure type: unspecified Qualified Code(s): N17.9 - Acute kidney failure, unspecified Urethral stricture Qualifiers: Urethral stricture type: unspecified stricture type Qualified Code(s): N35.9 - Urethral stricture, unspecified
[2016-07-19] MEDS ORDERED: morphine CARPU-JECT 2 MG/1 ML DISP.SYRIN IVPUSH ONE ×2 (12:13→12:56)
--- NOTE | 2016-07-19 12:15 | PDOC ---
Attending Attestation - Resident Resident Name: GloverCesar - ED Attending Attestation I have performed the following: I have examined & evaluated the patient, The case was reviewed & discussed with the resident, I agree w/resident's findings & plan, Exceptions are as noted - HPI HPI: 07/19/16 12:15 this is an 86 y/o M w/ a h/o AAA repair, CAD s/p CABG, Colectomy, Prostate Cancer (s/p seeds & Green Light Procedure), who is s/p urethral stricture repair on 07/08/16 and was treated with aztreonam. Pt was doing well after discharge but began having loose stool 10-15 times per day from Monday into Monday and which tapered down and then again began having loose stool 10-15 times per day from yesterday into today. Stool is described as soft and not watery. He also c/o sharp lower abdominal pain that is 5/10. (+) malodorous urine - Physicial Exam PE: 07/19/16 12:20 Pt appears uncomfortable - Medical Decision Making 07/19/16 12:20 Will do labs will do UA Will plan for CT abd and pelvis 07/19/16 15:47 Laboratory Tests 07/08/16 07/08/16 07/19/16 06:25 06:25 12:25 WBC 8.7 D 11.2 H Hgb 10.0 L 9.7 L Hct 30.4 L 29.5 L Plt Count 158 Sodium Potassium Chloride Carbon Dioxide BUN 25 H Creatinine 1.2 07/19/16 12:25 WBC Hgb Hct Plt Count Sodium 131 L Potassium 4.3 Chloride 101 D Carbon Dioxide 21 BUN 59 H D Creatinine 3.8 H D Renal insufficiency Will plan to admit UA pending Pt does not want to be admitted to Dr Sandoval would like to be admitted to Dr Woo CT pending Dr Sigala present to see this patient
[2016-07-19] MEDS ORDERED: morphine CARPU-JECT 2 MG/1 ML DISP.SYRIN ONE ×2 (12:16→13:00)
[2016-07-19 12:35] LABS: STOOL FOR OCCULT BLOOD NEGATIVE (NEGATIVE)
[2016-07-19 12:36] LABS: BASOPHIL 0.6 % (0-2.0); EOSINOPHIL 0.8 % (0-4.5); MCH 28.3 pg (25.7-33.7); MEAN CELL VOLUME 85.6 fl (80-96); MEAN PLT VOLUME 7.9 fl (7.5-11.1); NEUTROPHILS 91.2 % (42.8-82.8); RDW 16.8 % (11.9-15.9); WHITE BLOOD COUNT 11.2 K/mm3 (4.0-10.0)
[2016-07-19 12:59] LABS: ALBUMIN 2.8 g/dl (3.4-5.0); BILIRUBIN,TOTAL 0.4 mg/dL (0.2-1.0); CALCIUM 8.2 mg/dL (8.5-10.1); COCKROFT - GAULT 15.34; CREATININE 3.8 mg/dL (0.7-1.3); TOT PROT 6.4 g/dl (6.4-8.2)
[2016-07-19] MEDS ORDERED: oxyCODONE HCL 5 MG TABLET PO ONE (13:38)
--- NOTE | 2016-07-19 14:02 | EKG ---
Test Reason : Blood Pressure : / mmHG Vent. Rate : 089 BPM Atrial Rate : 089 BPM P-R Int : 182 ms QRS Dur : 114 ms QT Int : 406 ms P-R-T Axes : 067 -25 049 degrees QTc Int : 493 ms NORMAL SINUS RHYTHM INCOMPLETE RIGHT BUNDLE BRANCH BLOCK PROLONGED QT ABNORMAL ECG WHEN COMPARED WITH ECG OF 06-JUL-2016 09:23, NO SIGNIFICANT CHANGE WAS FOUND Confirmed by ANNE ABRAMS MD ([id number]) on 07/19/2016 2:02:08 PM Referred By: Confirmed By:ANNE ABRAMS MD
[2016-07-19] MEDS ORDERED: oxyCODONE HCL 5 MG TABLET ONE (14:22)
[2016-07-19] MEDS ORDERED: oxyCODONE HCL 5 MG TABLET PO PRN (17:06)
[2016-07-19] MEDS ORDERED: HYDROmorphone HCL CARPU-JECT 1 MG/1 ML DISP.SYRIN IVPUSH PRN (17:06)
[2016-07-19] MEDS ORDERED: ACETAMINOPHEN 325 MG TABLET (FP) PO PRN (17:06)
[2016-07-19] MEDS ORDERED: SODIUM CHLORIDE 1,000 ML IV SCH (17:15)
[2016-07-19 17:19] LABS: PLATELET COMMENT2 NO CLOTTING DETECTED; PLATELET COUNT 65 K/MM3 (134-434); PLATELET ESTIMATE DECREASED (NORMAL)
--- NOTE | 2016-07-19 17:20 | HP ---
Admitting History and Physical - Primary Care Physician PCP: Leonel Woo - Admission Chief Complaint: I don't feel well History of Present Illness: Mr Torres is an 86 year old male who was recently discharged after having cystoscopy with uretheral dilatation who comes in with complaints of diarrhea and abdominal/back pain. He was discharged with a sampson and followed up, the sampson was removed on . After he was having pain with urination but that was expected. He was urinating normally for himself. However Monday he began to have difficulty urinating and noticed that he was urinating less. On Monday he developed diarrhea, it was soft stools and not liquidy but he states he was going 10-15 times a day. He had shivers on Monday. He says he is not having nausea or vomiting but his appetite is decreased. He has been drinking less as well. He denies fevers, lightheadedness, dizziness, chest pain , shortness of breath, or leg swelling. He says today he noted that his abdomen was getting distended and he was having both abdominal and back pain. History Source: Patient, Family Member Limitations to Obtaining History: No Limitations - Past Medical History Cardiovascular: Yes: CAD, HTN, [place], Other (PAD) Pulmonary: Yes: COPD. No: O2 Dependent Gastrointestinal: Yes: GERD Renal/: Yes: Renal Inusuff, Cancer (PROSTATE) Rheumatology: Yes: Gout - Past Surgical History Past Surgical History: Yes: AAA Repair, Bypass (LE), CABG (3v) - Smoking History Smoking history: Never smoked Have you smoked in the past 12 months: No Aproximately how many cigarettes per day: 80 If you are a former smoker, when did you quit?: 1979 - Alcohol/Substance Use Hx Alcohol Use: No History of Substance Use: reports: None - Social History Usual Living Arrangement: Yes: Alone ADL: Independent History of Recent Travel: No Home Medications - Allergies Allergies/Adverse Reactions: Allergies Allergy/AdvReac Type Severity Reaction Status Date / Time beeswax Allergy Severe Verified 07/19/16 14:21 cephalexin monohydrate Allergy Severe Verified 07/19/16 14:21 [From Keflex] honey Allergy Severe Verified 07/19/16 14:21 Penicillins Allergy Severe Verified 07/19/16 14:21 tetracycline [Tetracycline] Allergy Severe Verified 07/19/16 14:21 Nitrofuran Analogues Allergy Verified 07/19/16 14:21 ondansetron HCl AdvReac Unknown Verified 07/19/16 14:21 [From Zofran (as hydrochloride)] papertape Allergy Uncoded 07/19/16 14:21 - Home Medications Home Medications: Ambulatory Orders Pantoprazole Sodium [Protonix -] 40 mg PO DAILY #0 tablet.ec 11/03/12 Simvastatin [Zocor -] 40 mg PO DAILY 06/24/13 Cilostazol [Pletal -] 100 mg PO BID #30 tablet 06/17/14 Carvedilol [Coreg] 20 mg PO DAILY 08/26/14 Cetirizine HCl [Zyrtec -] 10 mg PO DAILY 08/26/14 Fesoterodine Fumarate [Toviaz] 8 mg PO DAILY 08/26/14 Cranberry Fruit Extract [Theracran Hp For Kids] 36 mg PO DAILY 03/17/16 Aspirin [ASA -] 81 mg PO DAILY 07/05/16 Febuxostat [Uloric -] 80 mg PO DAILY 07/19/16 Ferrous Sulfate [Children's Ferrous Sulfate] 65 mg PO ASDIR 07/19/16 Family Disease History - Family Disease History Family History: Unremarkable Review of Systems Findings/Remarks: Full review of systems obtained, as per HPI and otherwise negative Physical Examination Vital Signs: Vital Signs Temperature 98 F 07/19/16 10:58 Pulse Rate 77 07/19/16 14:58 Respiratory Rate 19 07/19/16 10:58 Blood Pressure 154/68 07/19/16 14:58 O2 Sat by Pulse Oximetry (%) 95 07/19/16 14:58 Constitutional: Yes: Well Nourished, No Distress, Calm Eyes: Yes: Conjunctiva Clear, EOM Intact, PERRL HENT: Yes: Atraumatic, Normocephalic Cardiovascular: Yes: Regular Rate and Rhythm. No: Gallop, Murmur, Rub Respiratory: Yes: Regular, CTA Bilaterally. No: Rales, Rhonchi, Wheezes Gastrointestinal: Yes: Normal Bowel Sounds, Soft, Distention, Tenderness Renal/: Yes: CVA Tenderness - Left, CVA Tenderness - Right Extremities: Yes: WNL Edema: No Labs: CBC, BMP 07/19/16 12:25 07/19/16 12:25 Imaging - Results Cat Scan: Report Reviewed, Image Reviewed EKG: Report Reviewed, Image Reviewed Problem List - Problems (1) ELSY (acute kidney injury) Assessment/Plan: -suspect this is from urinary retention causing hydronephrosis -also with dehydration -admit to hospital -consult nephrology, seen by Dr Cespedes on previous admissions -consult urology, may need sampson -gentle hydration Code(s): N17.9 - ACUTE KIDNEY FAILURE, UNSPECIFIED (2) Diarrhea Assessment/Plan: -concerning for possible c. diff -c. diff and stool cultures ordered -ID consulted -start flagyl Code(s): R19.7 - DIARRHEA, UNSPECIFIED Qualifiers: Diarrhea type: presumed infectious Qualified Code(s): A09 - Infectious gastroenteritis and colitis, unspecified (3) Urinary retention Assessment/Plan: -cause of abdominal pain and ELSY -urology consulted -may need sampson and further intervention Code(s): R33.9 - RETENTION OF URINE, UNSPECIFIED (4) Hydronephrosis Assessment/Plan: -urology consulted Code(s): N13.30 - UNSPECIFIED HYDRONEPHROSIS Qualifiers: Hydronephrosis type: with other ureteral stricture Qualified Code(s) : N13.1 - Hydronephrosis with ureteral stricture, not elsewhere classified (5) Appendicitis Assessment/Plan: -seen on CT scan -will consult surgery for evaluation -will start flagyl -will consult ID, possible starting levaquin but will be low dose secondary to renal function and will observer drug interactions Code(s): K37 - UNSPECIFIED APPENDICITIS (6) Anemia Assessment/Plan: -monitor Code(s): D64.9 - ANEMIA, UNSPECIFIED Qualifiers: Anemia type: due to other cause (7) HTN (hypertension) Assessment/Plan: -continue home regimen Code(s): I10 - ESSENTIAL (PRIMARY) HYPERTENSION Qualifiers: Hypertension type: essential hypertension Qualified Code(s): I10 - Essential (primary) hypertension (8) PAD (peripheral artery disease) Assessment/Plan: -continue pletal and aspirin Code(s): I73.9 - PERIPHERAL VASCULAR DISEASE, UNSPECIFIED (9) CAD (coronary artery disease) Assessment/Plan: -quiescent -continue home regimen Code(s): I25.10 - ATHSCL HEART DISEASE OF [place] CORONARY ARTERY W/O ANG PCTRS
[2016-07-19] MEDS ORDERED: HYDROmorphone HCL CARPU-JECT 1 MG/1 ML DISP.SYRIN ONE ×2 (17:37)
--- NOTE | 2016-07-19 18:15 | CONSULT ---
Consult Consult Specialty:: urology Referred by:: ER Reason for Consultation:: urinary retention - History of Present Illness Chief Complaint: urinary retention History of Present Illness: 86 year old man presents with abdominal pain. He is noted to have urinary retention and bilateral hydronephrosis on CT scan. He had a cystoscopy two weeks ago for urethral strictures. - History Source History Provided By: Patient, Family Member, Medical Record Limitations to Obtaining History: No Limitations - Past Medical History Cardio/Vascular: Yes: CAD, HTN, [place], Other (PAD) Pulmonary: Yes: COPD. No: O2 Dependent Gastrointestinal: Yes: GERD Renal/: Yes: Renal Inusuff, BPH, Cancer (PROSTATE), Other (urethral strictures ) Rheumatology: Yes: Gout - Past Surgical History Past Surgical History: Yes: AAA Repair, Bypass (LE), CABG (3v) - Alcohol/Substance Use Hx Alcohol Use: No History of Substance Use: reports: None - Smoking History Smoking history: Never smoked Have you smoked in the past 12 months: No Aproximately how many cigarettes per day: 80 If you are a former smoker, when did you quit?: 1979 - Social History Usual Living Arrangement: Alone ADL: Independent History of Recent Travel: No Home Medications - Allergies Allergies/Adverse Reactions: Allergies Allergy/AdvReac Type Severity Reaction Status Date / Time beeswax Allergy Severe Verified 07/19/16 14:21 cephalexin monohydrate Allergy Severe Verified 07/19/16 14:21 [From Keflex] honey Allergy Severe Verified 07/19/16 14:21 Penicillins Allergy Severe Verified 07/19/16 14:21 tetracycline [Tetracycline] Allergy Severe Verified 07/19/16 14:21 Nitrofuran Analogues Allergy Verified 07/19/16 14:21 ondansetron HCl AdvReac Unknown Verified 07/19/16 14:21 [From Zofran (as hydrochloride)] papertape Allergy Uncoded 07/19/16 14:21 - Home Medications Home Medications: Ambulatory Orders Pantoprazole Sodium [Protonix -] 40 mg PO DAILY #0 tablet.ec 11/03/12 Simvastatin [Zocor -] 40 mg PO DAILY 06/24/13 Cilostazol [Pletal -] 100 mg PO BID #30 tablet 06/17/14 Carvedilol [Coreg] 20 mg PO DAILY 08/26/14 Cetirizine HCl [Zyrtec -] 10 mg PO DAILY 08/26/14 Fesoterodine Fumarate [Toviaz] 8 mg PO DAILY 08/26/14 Cranberry Fruit Extract [Theracran Hp For Kids] 36 mg PO DAILY 03/17/16 Aspirin [ASA -] 81 mg PO DAILY 07/05/16 Febuxostat [Uloric -] 80 mg PO DAILY 07/19/16 Ferrous Sulfate [Children's Ferrous Sulfate] 65 mg PO ASDIR 07/19/16 Review of Systems - Review of Systems Gastrointestinal: reports: Abdominal Pain, Bloating Genitourinary: reports: Frequency, Incontinence, Urgency Physical Exam Vital Signs: Vital Signs Temperature 98 F 07/19/16 10:58 Pulse Rate 77 07/19/16 14:58 Respiratory Rate 19 07/19/16 10:58 Blood Pressure 154/68 07/19/16 14:58 O2 Sat by Pulse Oximetry (%) 95 07/19/16 14:58 Renal/: Yes: Bladder Distention, Incontinence. No: CVA Tenderness - Left, CVA Tenderness - Right, Sampson Present, Hematuria Labs: CBC, BMP 07/19/16 12:25 07/19/16 12:25 Problem List - Problems (1) Urinary retention Assessment/Plan: ER staff umable to pass sampson because of recent history of strictures. I placed a 14Fr. catheter with large clear urine output Maintain sampson until hydro and ELSY resolve. will follow Code(s): R33.9 - RETENTION OF URINE, UNSPECIFIED
[2016-07-19 18:45] LABS: URINE APPEARANCE CLEAR; URINE BILIRUBIN NEGATIVE (NEGATIVE); URINE COLOR LTYELLOW; URINE GLUCOSE (UA) NEGATIVE (NEGATIVE); URINE KETONE NEGATIVE (NEGATIVE); URINE NITRITE NEGATIVE (NEGATIVE); URINE PROTEIN NEGATIVE (NEGATIVE); URINE UROBILINOGEN NEGATIVE E.U./dl (0.2-1.0)
[2016-07-19] MEDS: METRONIDAZOLE PREMIXED IVPB 50 ML IVPB SCH (18:45)
[2016-07-19 18:49] LABS: URINE BLOOD 3+ (NEGATIVE); URINE LEUK ESTERASE 3+ (NEGATIVE)
[2016-07-19 19:30] LABS: URINE BACTERIA MANY /hpf (NONE SEEN); URINE MUCUS RARE; URINE RBC 13 /hpf (0-3); URINE WBC 29 /hpf (3-5)
[2016-07-19] MEDS: HEPARIN NA (PORCINE) 5,000 UNITS/ML 1ML VIAL SQ SCH (22:35)
[2016-07-19] MEDS: ATORVASTATIN CA 20 MG TABLET (FP) PO SCH (22:36)
[2016-07-19] MEDS: CILOSTAZOL 100 MG TABLET PO SCH (22:37)
[2016-07-20 02:01] VITALS: BMI 29.0
[2016-07-20] MEDS: METRONIDAZOLE PREMIXED IVPB 50 ML IVPB SCH (02:44)
[2016-07-20] MEDS: HEPARIN NA (PORCINE) 5,000 UNITS/ML 1ML VIAL SQ SCH (06:09)
[2016-07-20 08:03] LABS: MCH 28.3 pg (25.7-33.7); MCHC 33.2 g/dl (32.0-35.9); PLATELET COUNT 72 K/MM3 (134-434); RDW 16.9 % (11.9-15.9); WHITE BLOOD COUNT 6.5 K/mm3 (4.0-10.0)
--- NOTE | 2016-07-20 08:29 | CONSULT ---
Consultation: REQUESTING PROVIDER: CONSULT REQUEST: We have been asked to medically evaluate this patient for (ID). HISTORY OF PRESENT ILLNESS: 86 year old male who was recently discharged after having cystoscopy with uretheral dilatation who comes in with complaints of diarrhea and abdominal/back pain. He was discharged with a sampson and followed up , the sampson was removed on . On Monday he began to have difficulty urinating and noticed that he was urinating less. On Monday he developed diarrhea, it was soft stools and not liquidy but he states he was going 10-15 times a day. He says he is not having nausea or vomiting. He denies fevers, chills. He says today he noted that his abdomen was getting distended and he was having both abdominal and back pain. patient was cathetrized yesterday and post cathetrization his symptoms improved significantly. states pain abdomen and back has resolved. no diarrhoea since night. denies fever, chills. REVIEW OF SYSTEMS: CONSTITUTIONAL: Absent: fever, chills, diaphoresis, CARDIOVASCULAR: Absent: chest pain, syncope, palpitations, RESPIRATORY: Absent: cough, shortness of breath GASTROINTESTINAL: as described above GENITOURINARY: as described above PHYSICAL EXAMINATION Vital Signs - 24 hr 07/19/16 22:00 Temperature 98.4 F Pulse Rate 71 Respiratory 18 Rate Blood Pressure 121/53 O2 Sat by Pulse 97 Oximetry (%) GENERAL: Awake, alert, and fully oriented, in no acute distress. LUNGS: Breath sounds equal, clear to auscultation bilaterally. No wheezes, and no crackles. No accessory muscle use. HEART: s1s2 normal ABDOMEN: Soft, nontender, not distended, normoactive bowel sounds, no guarding, no rebound, no masses. No hepatomegaly or splenomegaly. UPPER EXTREMITIES: 2+ pulses, warm, well-perfused. Laboratory Results - last 24 hr 07/20/16 07:00 WBC 6.5 D RBC 2.82 L Hgb 8.0 L D Hct 24.0 L D MCV 85.0 MCHC 33.2 RDW 16.9 H Plt Count 72 L MPV 8.0 Neutrophils % Y Lymphocytes % Y Active Medications Generic Name Dose Route Start Last Admin Trade Name Freq PRN Reason Stop Dose Admin Acetaminophen 650 mg 07/19/16 17:06 Tylenol - PO Q4H PRN FEVER OR PAIN Aspirin 81 mg 07/20/16 10:00 Asa - PO DAILY [facility] Atorvastatin Calcium 20 mg 07/19/16 22:00 07/19/16 22:36 Lipitor - PO 20 mg HS [facility] Administration Carvedilol 20 mg 07/20/16 10:00 Coreg - PO DAILY [facility] Cilostazol 100 mg 07/19/16 22:00 07/19/16 22:37 Pletal - PO 100 mg BID MALACHI Administration Febuxostat 80 mg 07/20/16 10:00 Uloric - PO DAILY [facility] Heparin Sodium (Porcine) 5,000 unit 07/19/16 22:00 07/20/16 06:09 Heparin - SQ 5,000 unit TID [facility]ACHI Administration Hydromorphone HCl 1 mg 07/19/16 17:06 Dilaudid Injection - IVPUSH Q4H PRN PAIN Sodium Chloride 1,000 mls @ 50 mls/hr 07/19/16 17:15 07/19/16 17:45 Normal Saline - IV 07/20/16 17:11 50 mls/hr ASDIR [facility] Administration Metronidazole 50 mls @ 50 mls/hr 07/19/16 18:00 07/20/16 02:44 Flagyl 250mg Premixed Ivpb - IVPB 50 mls/hr Q8H-IV MALACHI Administration Loratadine 10 mg 07/20/16 10:00 Claritin - PO DAILY [facility] Non-Formulary Medication 8 mg 07/20/16 10:00 Fesoterodine Fumarate [Toviaz] PO DAILY [facility] Oxycodone HCl 10 mg 07/19/16 17:06 Roxicodone - PO Q6H PRN PAIN Pantoprazole Sodium 40 mg 07/20/16 10:00 Protonix - PO DAILY [facility] ASSESSMENT/PLAN: Assessment Urinary retension: sampson in situ Possible UTI PCN allergy Plan Cultures Aztreonam 500mg q8H for now Stop metronidazole Dispo: We will continue to follow the patient. Thank you for this consultative opportunity. Visit type - Emergency Visit Emergency Visit: Yes ED Registration Date: 07/19/16 Care time: The patient presented to the Emergency Department on the above date and was hospitalized for further evaluation of their emergent condition. - New Patient This patient is new to me today: Yes Date on this admission: 07/20/16 - Critical Care Critical Care patient: No
[2016-07-20 08:32] LABS: ALBUMIN 2.1 g/dl (3.4-5.0); CALCIUM 7.6 mg/dL (8.5-10.1)
[2016-07-20 08:37] LABS: BILIRUBIN,TOTAL 0.4 mg/dL (0.2-1.0); COCKROFT - GAULT 20.35; CREATININE 2.9 mg/dL (0.7-1.3); PHOSPHOROUS 3.5 mg/dL (2.5-4.9)
--- NOTE | 2016-07-20 09:25 | PN ---
Teaching Attending Note Name of Resident: Serjio Jane ATTENDING PHYSICIAN STATEMENT I saw and evaluated the patient. I reviewed the resident's note and discussed the case with the resident. I agree with the resident's findings and plan as documented. SUBJECTIVE:Asymtomatic and clearly much better then admission OBJECTIVE: ASSESSMENT AND PLAN: Selected Entries 07/19/16 22:00 Temperature 98.4 F Respiratory 18 Rate Blood Pressure 121/53 O2 Sat by Pulse 97 Oximetry (%) Weight 180 lb 3.2 oz Lung Clear Cor S1 S2 RR ABd Soft nontender midline scar Ext No edema CVAT Microbiology Laboratory Tests 07/19/16 07/19/16 07/20/16 12:25 12:25 07:00 WBC 11.2 H 6.5 D Hgb 8.0 L D Hct 24.0 L D Plt Count 72 L BUN Creatinine Creat Clearance w eGFR Ur Leukocyte Esterase 3+ H Urine RBC 13 Urine Bacteria Many 07/20/16 07:00 WBC Hgb Hct Plt Count BUN 54 H Creatinine 2.9 H D Creat Clearance w eGFR 20.64 Ur Leukocyte Esterase Urine RBC Urine Bacteria Assessment Urinary retension Possible UTI PCN allergy Doubt C diff infection diarrhea resolved already Plan Cultures Aztreonam 500mg q8H for now Stop erik Hughes MD
[2016-07-20] MEDS ORDERED: PT OWN MED DRAWER 7, Y5N ONE ×2 (09:54→17:27)
[2016-07-20] MEDS ORDERED: CARVEDILOL 12.5 MG TABLET (FP) PO SCH (10:00)
[2016-07-20] MEDS ORDERED: PATIENT'S OWN MEDICATION (NON-FORMULARY) (Simvastatin 40 MG) PO SCH (10:00)
[2016-07-20] MEDS ORDERED: FEBUXOSTAT 40 MG TAB PO SCH (10:00)
[2016-07-20] MEDS ORDERED: PATIENT'S OWN MEDICATION (NON-FORMULARY) (Cetirizine Hcl 10 MG) PO SCH (10:00)
--- NOTE | 2016-07-20 10:56 | CONSULT ---
Consult Consult Specialty:: surgery Reason for Consultation:: r/o appendicitis - History of Present Illness Chief Complaint: abd pain/back pain History of Present Illness: pt is a 86M came in with lower abd pain and back pain. CT shows urinary retention with hydro from [place]. put in sampson and now his pain is completely gone. Patient is hungry. i am called because CT also shows some fullnesss of appendix but No surrounding inflammation. - Past Medical History Cardio/Vascular: Yes: CAD, HTN, [place], Other (PAD) Pulmonary: Yes: COPD. No: O2 Dependent Gastrointestinal: Yes: GERD Renal/: Yes: Renal Inusuff, BPH, Cancer (PROSTATE), Other (urethral strictures ) Rheumatology: Yes: Gout - Past Surgical History Past Surgical History: Yes: AAA Repair, Bypass (LE), CABG (3v) - Alcohol/Substance Use Hx Alcohol Use: No History of Substance Use: reports: None - Smoking History Smoking history: Former smoker Have you smoked in the past 12 months: No Aproximately how many cigarettes per day: 80 If you are a former smoker, when did you quit?: 1979 - Social History Usual Living Arrangement: Alone ADL: Independent History of Recent Travel: No Home Medications - Allergies Allergies/Adverse Reactions: Allergies Allergy/AdvReac Type Severity Reaction Status Date / Time beeswax Allergy Severe Verified 07/19/16 14:21 cephalexin monohydrate Allergy Severe Verified 07/19/16 14:21 [From Keflex] honey Allergy Severe Verified 07/19/16 14:21 Penicillins Allergy Severe Verified 07/19/16 14:21 tetracycline [Tetracycline] Allergy Severe Verified 07/19/16 14:21 hydromorphone HCl Allergy Verified 07/20/16 07:01 [From Dilaudid] Nitrofuran Analogues Allergy Verified 07/19/16 14:21 ondansetron HCl AdvReac Unknown Verified 07/19/16 14:21 [From Zofran (as hydrochloride)] papertape Allergy Uncoded 07/19/16 14:21 - Home Medications Home Medications: Ambulatory Orders Pantoprazole Sodium [Protonix -] 40 mg PO DAILY #0 tablet.ec 11/03/12 Simvastatin [Zocor -] 40 mg PO DAILY 06/24/13 Cilostazol [Pletal -] 100 mg PO BID #30 tablet 06/17/14 Carvedilol [Coreg] 20 mg PO DAILY 08/26/14 Cetirizine HCl [Zyrtec -] 10 mg PO DAILY 08/26/14 Fesoterodine Fumarate [Toviaz] 8 mg PO DAILY 08/26/14 Cranberry Fruit Extract [Theracran [facility]] 36 mg PO DAILY 03/17/16 Aspirin [ASA -] 81 mg PO DAILY 07/05/16 Febuxostat [Uloric -] 80 mg PO DAILY 07/19/16 Ferrous Sulfate [Children's Ferrous Sulfate] 65 mg PO ASDIR 07/19/16 Review of Systems - Review of Systems Constitutional: denies: Chills, Fever Eyes: denies: Blind Spots, Blurred Vision HENT: denies: Difficult Swallowing, Ear Discharge Neck: denies: Decreased ROM, Lumps Cardiovascular: denies: Chest Pain, Edema Respiratory: denies: Cough, Exercise Intolerance Gastrointestinal: reports: Diarrhea Genitourinary: reports: Other (retention) Musculoskeletal: reports: Back Pain. denies: Muscle Pain Integumentary: denies: Blister, Bruising Neurological: denies: Change in Speech, Numbness Endocrine: denies: Excessive Sweating, Flushing Hematology/Lymphatic: denies: Easily Bruised, Excessive Bleeding Psychiatric: denies: Altered Sleep Pattern, Anxiety Physical Exam Vital Signs: Vital Signs Temperature 98.9 F 07/20/16 10:00 Pulse Rate 71 07/20/16 10:00 Respiratory Rate 18 07/20/16 10:00 Blood Pressure 120/57 07/20/16 10:00 O2 Sat by Pulse Oximetry (%) 97 07/19/16 22:00 Constitutional: Yes: No Distress, Calm Eyes: Yes: Conjunctiva Clear, EOM Intact HENT: Yes: Atraumatic, Normocephalic Neck: Yes: Supple, Trachea Midline Cardiovascular: Yes: Regular Rate and Rhythm Respiratory: Yes: Regular, CTA Bilaterally Gastrointestinal: Yes: Soft, Other (large midline incision). No: Distention, Tenderness ...Rectal Exam: Yes: Deferred Renal/: No: CVA Tenderness - Left, CVA Tenderness - Right Breast(s): No: Nipple Inversion, Skin Changes Musculoskeletal: No: Joint Stiffness, Joint Swelling Extremities: No: Calf Tenderness, Erythema Integumentary: No: Erythema, Rash Neurological: Yes: Alert, Oriented Psychiatric: Yes: Alert, Oriented Labs: CBC, BMP 07/20/16 07:00 07/20/16 07:00 Imaging - Results Cat Scan: Report Reviewed Problem List - Problems (1) Appendicitis Assessment/Plan: CT shows fullness of appendix but no surrounding inflammation patient with complicated surgical hx. with my symptoms and high operative risk from comorbidities and high operative risk from adhesions would not consider appendectomy unless his CT was more compelling or unless he had more symptoms. i suspect his abd pain was due to severe urinary retention. if he develops RLQ pain will need repeat imaging regular diet Code(s): K37 - UNSPECIFIED APPENDICITIS (2) CAD (coronary artery disease) Code(s): I25.10 - ATHSCL HEART DISEASE OF [place] CORONARY ARTERY W/O ANG PCTRS (3) Hydronephrosis Code(s): N13.30 - UNSPECIFIED HYDRONEPHROSIS Qualifiers: Hydronephrosis type: with other ureteral stricture Qualified Code(s) : N13.1 - Hydronephrosis with ureteral stricture, not elsewhere classified (4) ELSY (acute kidney injury) Code(s): N17.9 - ACUTE KIDNEY FAILURE, UNSPECIFIED (5) CHF (congestive heart failure) Code(s): I50.9 - HEART FAILURE, UNSPECIFIED (6) COPD (chronic obstructive pulmonary disease) Code(s): J44.9 - CHRONIC OBSTRUCTIVE PULMONARY DISEASE, UNSPECIFIED
[2016-07-20 10:57] LABS: PLATELET ESTIMATE DECREASED (NORMAL)
[2016-07-20] MEDS: AZTREONAM 0.5 GM in DEXTROSE 5%-WATER - 50 ML IVPB SCH ×2 (11:33→17:49)
[2016-07-20] MEDS: PANTOPRAZOLE 40 MG TABLET (FP) PO SCH (11:36)
[2016-07-20] MEDS: CILOSTAZOL 100 MG TABLET PO SCH ×2 (11:36→22:45)
[2016-07-20] MEDS: ASPIRIN 81 MG CHEWABLE TABLETS PO SCH (11:36)
[2016-07-20] MEDS: LORATADINE 10 MG TABLET PO SCH (11:36)
[2016-07-20] MEDS: CARVEDILOL PHOSPHATE CR 20 MG CAPSULE (FP) PO SCH (11:38)
--- NOTE | 2016-07-20 12:02 | CONSULT ---
Consult - text type - Consultation Consultation Note: Renal Consult for Acute Kidney Injury This is a 86 year old gentleman with PMhx of CKD Stage 3 (baseline Cr 1.2-1.4), AAA s/p repair, CAD s/p CABG, Prostate Ca, Gout, Artificial urethral sphincter who presented with Abd/Flank pain and urinary retention and found to have ELSY in setting of Obstruction with suspected UTI. Pt s/p recent cysto for urethral stricture that required a sampson catheter for some time. Sampson was discontinued and pt was voiding for some time but then could not void. No hematuria. + Flank pain, abd pain. No N/V/D. PMhx: as above Allergies: NKDA Family Hx: NC Social hx: No T/A/D ROs: No CP, SOB, Abd pain, N/V/D, flank pain, DOMINGO, Fever, chills. All other pertinent ros negative. Home Medications Medication Instructions Recorded Pantoprazole Sodium [Protonix -] 40 mg PO DAILY #0 tablet.ec 11/03/12 Simvastatin [Zocor -] 40 mg PO DAILY 06/24/13 Cilostazol [Pletal -] 100 mg PO BID #30 tablet 06/17/14 Carvedilol [Coreg] 20 mg PO DAILY 08/26/14 Cetirizine HCl [Zyrtec -] 10 mg PO DAILY 08/26/14 Fesoterodine Fumarate [Toviaz] 8 mg PO DAILY 08/26/14 Cranberry Fruit Extract [Theracran 36 mg PO DAILY 03/17/16 [facility]p For Kids] Aspirin [ASA -] 81 mg PO DAILY 07/05/16 Febuxostat [Uloric -] 80 mg PO DAILY 07/19/16 Ferrous Sulfate [Children's 65 mg PO ASDIR 07/19/16 Ferrous Sulfate] Vital Signs Temperature 98.9 F 07/20/16 10:00 Pulse Rate 71 07/20/16 10:00 Respiratory Rate 18 07/20/16 10:00 Blood Pressure 120/57 07/20/16 10:00 O2 Sat by Pulse Oximetry (%) 97 07/19/16 22:00 Intake & Output 07/17/16 07/18/16 07/19/16 07/20/16 23:59 23:59 23:59 23:59 Intake Total 60 650 Output Total 300 Balance -240 650 Weight 180 lb 3.2 oz Gen: NAD, awake and alert HEENT: NC/AT, No JVD, Neck supple CVS: RRR, No M/R Lungs: CTA, no rales or wheeze Abd: soft NT/ND Ext: No edema, clubbing or cyanosis : Sampson in place CBC, BMP 07/20/16 07:00 07/20/16 07:00 Current Medications Acetaminophen (Tylenol -) 650 mg PO Q4H PRN PRN Reason: FEVER OR PAIN Aspirin (Asa -) 81 mg PO DAILY [facility] Last Admin: 07/20/16 11:36 Dose: 81 mg Atorvastatin Calcium (Lipitor -) 20 mg PO HS [facility] Last Admin: 07/19/16 22:36 Dose: 20 mg Carvedilol (Coreg Cr -) 20 mg PO DAILY [facility] Last Admin: 07/20/16 11:38 Dose: 20 mg Cilostazol (Pletal -) 100 mg PO BID [facility] Last Admin: 07/20/16 11:36 Dose: 100 mg Febuxostat (Uloric -) 80 mg PO DAILY [facility] Hydromorphone HCl (Dilaudid Injection -) 1 mg IVPUSH Q4H PRN PRN Reason: PAIN Aztreonam 0.5 gm/ Dextrose 50 mls @ 100 mls/hr IVPB Q8H-IV [facility]ACHI PRN Reason: Protocol Last Admin: 07/20/16 11:33 Dose: 100 mls/hr Sodium Chloride (1/2 Normal Saline) 1,000 mls @ 83 mls/hr IV ASDIR [facility] Loratadine (Claritin -) 10 mg PO DAILY [facility] Last Admin: 07/20/16 11:36 Dose: 10 mg Non-Formulary Medication (Fesoterodine Fumarate [Toviaz]) 8 mg PO DAILY [facility] Oxycodone HCl (Roxicodone -) 10 mg PO Q6H PRN PRN Reason: PAIN Pantoprazole Sodium (Protonix -) 40 mg PO DAILY [facility] Last Admin: 07/20/16 11:36 Dose: 40 mg A/P 86 year old gentleman with PMhx of CKD Stage 3 (baseline Cr 1.2-1.4), AAA s/p repair, CAD s/p CABG, Prostate Ca, Gout, Artificial urethral sphincter who presented with Abd/Flank pain and urinary retention and found to have ELSY in setting of Obstruction with suspected UTI. #Acute Renal Failure secondary to obstruction s/p urgent Sampson placement by urology Renal function with modest improvement so far will change IVF to 02/21 to adjust for possible post obstructive diuresis Trend Urine output and BUN/Cr Dose all meds for Cr Cl less then 30 #Metabolic acidosis + anion gap so etiology likely related to renal failure Trend serum bicarb no indication for bicarb supplementation at this time #Bladder outlet obstruction sampson in place urology follow up #Suspected UTI Abx as per ID f/u cultures #Thrombocytopenia etiology is unclear at this time related to infection work up per primary Thank you for this referral will follow Sancho Cespedes DO
--- NOTE | 2016-07-20 12:25 | PN ---
Progress Note, Physician Chief Complaint: Mr Torres is feeling much improved today. Says abdominal pain is gone. No cp, sob, n/v. Diarrhea resolved. - Current Medication List Current Medications: Active Medications Acetaminophen (Tylenol -) 650 mg PO Q4H PRN PRN Reason: FEVER OR PAIN Aspirin (Asa -) 81 mg PO DAILY [facility] Last Admin: 07/20/16 11:36 Dose: 81 mg Atorvastatin Calcium (Lipitor -) 20 mg PO HS [facility] Last Admin: 07/19/16 22:36 Dose: 20 mg Carvedilol (Coreg Cr -) 20 mg PO DAILY [facility] Last Admin: 07/20/16 11:38 Dose: 20 mg Cilostazol (Pletal -) 100 mg PO BID [facility] Last Admin: 07/20/16 11:36 Dose: 100 mg Febuxostat (Uloric -) 80 mg PO DAILY [facility] Hydromorphone HCl (Dilaudid Injection -) 1 mg IVPUSH Q4H PRN PRN Reason: PAIN Aztreonam 0.5 gm/ Dextrose 50 mls @ 100 mls/hr IVPB Q8H-IV [facility] PRN Reason: Protocol Last Admin: 07/20/16 11:33 Dose: 100 mls/hr Sodium Chloride (1/2 Normal Saline) 1,000 mls @ 83 mls/hr IV ASDIR [facility] Loratadine (Claritin -) 10 mg PO DAILY [facility] Last Admin: 07/20/16 11:36 Dose: 10 mg Non-Formulary Medication (Fesoterodine Fumarate [Toviaz]) 8 mg PO DAILY [facility] Oxycodone HCl (Roxicodone -) 10 mg PO Q6H PRN PRN Reason: PAIN Pantoprazole Sodium (Protonix -) 40 mg PO DAILY [facility] Last Admin: 07/20/16 11:36 Dose: 40 mg - Objective Vital Signs: Vital Signs Temperature 98.9 F 07/20/16 10:00 Pulse Rate 71 07/20/16 10:00 Respiratory Rate 18 07/20/16 10:00 Blood Pressure 120/57 07/20/16 10:00 O2 Sat by Pulse Oximetry (%) 97 07/19/16 22:00 Constitutional: Yes: Well Nourished, No Distress, Calm Cardiovascular: Yes: Regular Rate and Rhythm. No: Gallop, Murmur, Rub Respiratory: Yes: Regular, CTA Bilaterally. No: Rales, Rhonchi, Wheezes Gastrointestinal: Yes: Normal Bowel Sounds, Soft. No: Distention, Tenderness Extremities: Yes: WNL Edema: No Labs: CBC, BMP 07/20/16 07:00 07/20/16 07:00 Problem List - Problems (1) ELSY (acute kidney injury) Code(s): N17.9 - ACUTE KIDNEY FAILURE, UNSPECIFIED (2) Diarrhea Code(s): R19.7 - DIARRHEA, UNSPECIFIED Qualifiers: Diarrhea type: presumed infectious Qualified Code(s): A09 - Infectious gastroenteritis and colitis, unspecified (3) Urinary retention Code(s): R33.9 - RETENTION OF URINE, UNSPECIFIED (4) Hydronephrosis Code(s): N13.30 - UNSPECIFIED HYDRONEPHROSIS Qualifiers: Hydronephrosis type: with other ureteral stricture Qualified Code(s) : N13.1 - Hydronephrosis with ureteral stricture, not elsewhere classified (5) Appendicitis Code(s): K37 - UNSPECIFIED APPENDICITIS (6) Anemia Code(s): D64.9 - ANEMIA, UNSPECIFIED Qualifiers: Anemia type: due to other cause (7) HTN (hypertension) Code(s): I10 - ESSENTIAL (PRIMARY) HYPERTENSION Qualifiers: Hypertension type: essential hypertension Qualified Code(s): I10 - Essential (primary) hypertension (8) PAD (peripheral artery disease) Code(s): I73.9 - PERIPHERAL VASCULAR DISEASE, UNSPECIFIED (9) CAD (coronary artery disease) Code(s): I25.10 - ATHSCL HEART DISEASE OF [place] CORONARY ARTERY W/O ANG PCTRS (10) UTI (urinary tract infection) Code(s): N39.0 - URINARY TRACT INFECTION, SITE NOT SPECIFIED Qualifiers: Urinary tract infection type: site unspecified Hematuria presence: without hematuria Qualified Code(s): N39.0 - Urinary tract infection, site not specified (11) Thrombocytopenia Code(s): D69.6 - THROMBOCYTOPENIA, UNSPECIFIED Assessment/Plan (1) ELSY (acute kidney injury) Assessment/Plan: -case d/w nephrology -most likely secondary to retention -sampson placed, improving -fluids changed to D5 1/2NS Code(s): N17.9 - ACUTE KIDNEY FAILURE, UNSPECIFIED (2) Diarrhea Assessment/Plan: -diarrhea resolved -appreciate ID assistance -flagyl stopped Code(s): R19.7 - DIARRHEA, UNSPECIFIED Qualifiers: Diarrhea type: presumed infectious Qualified Code(s): A09 - Infectious gastroenteritis and colitis, unspecified (3) Urinary retention Assessment/Plan: -cause of abdominal pain and ELSY -urology consulted and sampson placed -urology managing sampson Code(s): R33.9 - RETENTION OF URINE, UNSPECIFIED (4) Hydronephrosis Assessment/Plan: -urology consulted -sampson placed and draining Code(s): N13.30 - UNSPECIFIED HYDRONEPHROSIS Qualifiers: Hydronephrosis type: with other ureteral stricture Qualified Code(s) : N13.1 - Hydronephrosis with ureteral stricture, not elsewhere classified (5) Appendicitis Assessment/Plan: -appreciate surgical consultation -no indication for surgery at this time -abdominal pain resolved with sampson Code(s): K37 - UNSPECIFIED APPENDICITIS (6) Anemia Assessment/Plan -decreased today -suspect dilutional -monitor Code(s): D64.9 - ANEMIA, UNSPECIFIED Qualifiers: Anemia type: due to other cause (7) HTN (hypertension) Assessment/Plan: -continue home regimen Code(s): I10 - ESSENTIAL (PRIMARY) HYPERTENSION Qualifiers: Hypertension type: essential hypertension Qualified Code(s): I10 - Essential (primary) hypertension (8) PAD (peripheral artery disease) Assessment/Plan: -continue pletal and aspirin Code(s): I73.9 - PERIPHERAL VASCULAR DISEASE, UNSPECIFIED (9) CAD (coronary artery disease) Assessment/Plan: -quiescent -continue home regimen Code(s): I25.10 - ATHSCL HEART DISEASE OF [place] CORONARY ARTERY W/O ANG PCTRS (10) Thrombocytopenia -suspect secondary to infection -improving -monitor -will stop heparin now, restart when above 100 (11) UTI -appreciate ID assistance -on aztreonam -follow up culture results
[2016-07-20] MEDS: FEBUXOSTAT 80 MG TAB PO SCH (13:20)
[2016-07-20] MEDS: SODIUM CHLORIDE 0.45% 1,000 ML IV SCH (13:20)
[2016-07-20] MEDS: PATIENT'S OWN MEDICATION (NON-FORMULARY) (Fesoterodine Fumarate [Toviaz] 8 MG) PO SCH (17:46)
[2016-07-20] MEDS: BUDESONIDE/FORMETEROL FUMARATE 80/4.5 mcg INHALER IH SCH (22:23)
[2016-07-20] MEDS: ATORVASTATIN CA 20 MG TABLET (FP) PO SCH (22:23)
[2016-07-20] MEDS: ACLIDINIUM BROMIDE 400 MCG/INH AERO.POWD IH SCH (22:24)
[2016-07-21] MEDS: SODIUM CHLORIDE 0.45% 1,000 ML IV SCH (02:16)
[2016-07-21] MEDS: AZTREONAM 0.5 GM in DEXTROSE 5%-WATER - 50 ML IVPB SCH ×3 (02:17→17:51)
[2016-07-21 07:47] LABS: BASOPHIL 1.1 % (0-2.0); EOSINOPHIL 6.8 % (0-4.5); MCH 28.4 pg (25.7-33.7); MCHC 33.1 g/dl (32.0-35.9); MEAN CELL VOLUME 85.8 fl (80-96); MEAN PLT VOLUME 7.7 fl (7.5-11.1); NEUTROPHILS 65.7 % (42.8-82.8); PLATELET COUNT 88 K/MM3 (134-434); RDW 16.5 % (11.9-15.9); WHITE BLOOD COUNT 5.2 K/mm3 (4.0-10.0)
[2016-07-21 08:32] LABS: CALCIUM 7.7 mg/dL (8.5-10.1); COCKROFT - GAULT 28.11; CREATININE 2.1 mg/dL (0.7-1.3); MAGNESIUM 1.8 mg/dL (1.8-2.4); PHOSPHOROUS 3.3 mg/dL (2.5-4.9)
[2016-07-21] MEDS: CILOSTAZOL 100 MG TABLET PO SCH ×2 (09:51→21:27)
[2016-07-21] MEDS: ASPIRIN 81 MG CHEWABLE TABLETS PO SCH (09:51)
[2016-07-21] MEDS: LORATADINE 10 MG TABLET PO SCH (09:51)
[2016-07-21] MEDS: PANTOPRAZOLE 40 MG TABLET (FP) PO SCH (09:51)
--- NOTE | 2016-07-21 10:03 | PN ---
Progress Note, Physician Chief Complaint: ID Uncomfortable due to catheter Aztreonam - Current Medication List Current Medications: Active Medications Acetaminophen (Tylenol -) 650 mg PO Q4H PRN PRN Reason: FEVER OR PAIN Aclidinium Oral (Tudorza -) 1 puff IH BID [facility] Last Admin: 07/20/16 22:24 Dose: 1 puff Albuterol Sulfate (Ventolin 0.083% Nebulizer Soln -) 1 amp NEB Q6H PRN PRN Reason: SHORT OF BREATH/WHEEZING Aspirin (Asa -) 81 mg PO DAILY [facility] Last Admin: 07/21/16 09:51 Dose: 81 mg Atorvastatin Calcium (Lipitor -) 20 mg PO HS [facility] Last Admin: 07/20/16 22:23 Dose: 20 mg Budesonide/Formoterol Fumarate (Symbicort 80/4.5mcg -) 2 puff IH BID [facility] Last Admin: 07/20/16 22:23 Dose: 2 puff Carvedilol (Coreg Cr -) 20 mg PO DAILY [facility] Last Admin: 07/20/16 11:38 Dose: 20 mg Cilostazol (Pletal -) 100 mg PO BID [facility] Last Admin: 07/21/16 09:51 Dose: 100 mg Febuxostat (Uloric -) 80 mg PO DAILY [facility] Last Admin: 07/20/16 13:20 Dose: 80 mg Hydromorphone HCl (Dilaudid Injection -) 1 mg IVPUSH Q4H PRN PRN Reason: PAIN Last Admin: 07/20/16 22:23 Dose: 1 mg Aztreonam 0.5 gm/ Dextrose 50 mls @ 100 mls/hr IVPB Q8H-IV [facility] PRN Reason: Protocol Last Admin: 07/21/16 09:51 Dose: 100 mls/hr Sodium Chloride (1/2 Normal Saline) 1,000 mls @ 83 mls/hr IV ASDIR [facility] Last Admin: 07/21/16 02:16 Dose: 83 mls/hr Loratadine (Claritin -) 10 mg PO DAILY [facility] Last Admin: 07/21/16 09:51 Dose: 10 mg Non-Formulary Medication (Fesoterodine Fumarate [Toviaz]) 8 mg PO DAILY [facility] Last Admin: 07/20/16 17:46 Dose: Not Given Oxycodone HCl (Roxicodone -) 10 mg PO Q6H PRN PRN Reason: PAIN Pantoprazole Sodium (Protonix -) 40 mg PO DAILY [facility] Last Admin: 07/21/16 09:51 Dose: 40 mg - Objective Vital Signs: Vital Signs Temperature 99.0 F 07/21/16 06:00 Pulse Rate 67 07/21/16 06:00 Respiratory Rate 16 07/21/16 06:00 Blood Pressure 121/48 07/21/16 06:00 O2 Sat by Pulse Oximetry (%) 94 L 07/20/16 22:00 Constitutional: Yes: Well Nourished, No Distress Neck: Yes: WNL, Supple Cardiovascular: Yes: Regular Rate and Rhythm, S1, S2. No: Murmur Respiratory: Yes: WNL, Regular, CTA Bilaterally Gastrointestinal: Yes: WNL, Normal Bowel Sounds, Soft. No: Tenderness, Tenderness, Epigastrium Genitourinary: Yes: Other (sampson) Edema: No Labs: CBC, BMP 07/21/16 06:05 07/21/16 06:05 Assessment/Plan Microbiology 07/19/16 21:40 Blood - Peripheral Venous Blood Culture - Preliminary NO GROWTH OBTAINED AFTER 24 HOURS, INCUBATION TO CONTINUE FOR 4 DAYS. 07/19/16 21:40 Blood - Peripheral Venous Blood Culture - Preliminary NO GROWTH OBTAINED AFTER 24 HOURS, INCUBATION TO CONTINUE FOR 4 DAYS. Laboratory Tests 07/21/16 07/21/16 06:05 06:05 WBC 5.2 Hgb 7.9 L Hct 23.8 L Plt Count 88 L D BUN 39 H D Creatinine 2.1 H D Assessment Urinary retention No signs of infection Has camilla now Plan Aztreonam pending c/s ? stop IV after Ellen ROACH
[2016-07-21] MEDS: BUDESONIDE/FORMETEROL FUMARATE 80/4.5 mcg INHALER IH SCH ×2 (10:49→21:27)
[2016-07-21] MEDS: ACLIDINIUM BROMIDE 400 MCG/INH AERO.POWD IH SCH ×2 (10:55→21:27)
[2016-07-21] MEDS: CARVEDILOL PHOSPHATE CR 20 MG CAPSULE (FP) PO SCH (11:02)
[2016-07-21] MEDS: FEBUXOSTAT 80 MG TAB PO SCH (11:03)
[2016-07-21] MEDS: ALBUTEROL SO4 0.083% IH SOL 2.5 MG/3 ML VIAL.NEB. NEB PRN ×2 (11:37→19:15)
[2016-07-21] MEDS: PATIENT'S OWN MEDICATION (NON-FORMULARY) (Fesoterodine Fumarate [Toviaz] 8 MG) PO SCH (12:00)
--- NOTE | 2016-07-21 12:35 | PN ---
Progress Note (short form) - Note Progress Note: Renal follow up for ELSY on CKD Pt seen and examined at the bedside awake and alert no acute complaints sampson in place with good urine output Vital Signs Temperature 98.2 F 07/21/16 10:10 Pulse Rate 84 07/21/16 10:10 Respiratory Rate 16 07/21/16 10:10 Blood Pressure 146/55 07/21/16 10:10 O2 Sat by Pulse Oximetry (%) 94 L 07/20/16 22:00 Intake & Output 07/18/16 07/19/16 07/20/16 07/21/16 23:59 23:59 23:59 23:59 Intake Total 60 2760 598 Output Total 300 1900 Balance -240 860 598 Weight 180 lb 3.2 oz Gen: NAD, awake and alert HEENT: NC/AT, No JVD, Neck supple CVS: RRR, No M/R Lungs: CTA, no rales or wheeze Abd: soft NT/ND Ext: No edema, clubbing or cyanosis : Sampson in place CBC, BMP 07/21/16 06:05 07/21/16 06:05 Laboratory Tests 07/20/16 07/21/16 07:00 06:05 Calcium 7.6 L 7.7 L Phosphorus 3.3 Magnesium 1.8 Albumin 2.1 L D Current Medications Acetaminophen (Tylenol -) 650 mg PO Q4H PRN PRN Reason: FEVER OR PAIN Aclidinium [place] (Tudorza -) 1 puff IH BID [facility] Last Admin: 07/21/16 10:55 Dose: 1 puff Albuterol Sulfate (Ventolin 0.083% Nebulizer Soln -) 1 amp NEB Q6H PRN PRN Reason: SHORT OF BREATH/WHEEZING Last Admin: 07/21/16 11:37 Dose: 1 amp Aspirin (Asa -) 81 mg PO DAILY [facility] Last Admin: 07/21/16 09:51 Dose: 81 mg Atorvastatin Calcium (Lipitor -) 20 mg PO HS [facility] Last Admin: 07/20/16 22:23 Dose: 20 mg Budesonide/Formoterol Fumarate (Symbicort 80/4.5mcg -) 2 puff IH BID [facility] Last Admin: 07/21/16 10:49 Dose: 2 puff Carvedilol (Coreg Cr -) 20 mg PO DAILY [facility] Last Admin: 07/21/16 11:02 Dose: 20 mg Cilostazol (Pletal -) 100 mg PO BID [facility] Last Admin: 07/21/16 09:51 Dose: 100 mg Febuxostat (Uloric -) 80 mg PO DAILY [facility] Last Admin: 07/21/16 11:03 Dose: 80 mg Hydromorphone HCl (Dilaudid Injection -) 1 mg IVPUSH Q4H PRN PRN Reason: PAIN Last Admin: 07/20/16 22:23 Dose: 1 mg Aztreonam 0.5 gm/ Dextrose 50 mls @ 100 mls/hr IVPB Q8H-IV MALACHI PRN Reason: Protocol Last Admin: 07/21/16 09:51 Dose: 100 mls/hr Sodium Chloride (1/2 Normal Saline) 1,000 mls @ 83 mls/hr IV ASDIR [facility] Last Admin: 07/21/16 02:16 Dose: 83 mls/hr Loratadine (Claritin -) 10 mg PO DAILY [facility] Last Admin: 07/21/16 09:51 Dose: 10 mg Non-Formulary Medication (Fesoterodine Fumarate [Toviaz]) 8 mg PO DAILY [facility] Last Admin: 07/20/16 17:46 Dose: Not Given Oxycodone HCl (Roxicodone -) 10 mg PO Q6H PRN PRN Reason: PAIN Pantoprazole Sodium (Protonix -) 40 mg PO DAILY [facility] Last Admin: 07/21/16 09:51 Dose: 40 mg A/P 86 year old gentleman with PMhx of CKD Stage 3 (baseline Cr 1.2-1.4), AAA s/p repair, CAD s/p CABG, Prostate Ca, Gout, Artificial urethral sphincter who presented with Abd/Flank pain and urinary retention and found to have ELSY in setting of Obstruction with suspected UTI. #Acute Renal Failure secondary to obstruction Renal function with improvement s/p Sampson placement #Metabolic acidosis + anion gap so etiology likely related to renal failure Trend serum bicarb no indication for bicarb supplementation at this time #Bladder outlet obstruction sampson in place urology follow up #Suspected UTI Abx as per ID f/u cultures #Thrombocytopenia etiology is unclear at this time related to infection work up per primary Thank you for this referral will follow Sancho Cespedes DO
--- NOTE | 2016-07-21 12:56 | PN ---
Progress Note, Physician Chief Complaint: Mr Torres is without complaint. No cp, sob, n/v. - Current Medication List Current Medications: Active Medications Acetaminophen (Tylenol -) 650 mg PO Q4H PRN PRN Reason: FEVER OR PAIN Aclidinium [place] (Tudorza -) 1 puff IH BID [facility] Last Admin: 07/21/16 10:55 Dose: 1 puff Albuterol Sulfate (Ventolin 0.083% Nebulizer Soln -) 1 amp NEB Q6H PRN PRN Reason: SHORT OF BREATH/WHEEZING Last Admin: 07/21/16 11:37 Dose: 1 amp Aspirin (Asa -) 81 mg PO DAILY [facility] Last Admin: 07/21/16 09:51 Dose: 81 mg Atorvastatin Calcium (Lipitor -) 20 mg PO HS [facility] Last Admin: 07/20/16 22:23 Dose: 20 mg Budesonide/Formoterol Fumarate (Symbicort 80/4.5mcg -) 2 puff IH BID [facility] Last Admin: 07/21/16 10:49 Dose: 2 puff Carvedilol (Coreg Cr -) 20 mg PO DAILY [facility] Last Admin: 07/21/16 11:02 Dose: 20 mg Cilostazol (Pletal -) 100 mg PO BID [facility] Last Admin: 07/21/16 09:51 Dose: 100 mg Febuxostat (Uloric -) 80 mg PO DAILY [facility] Last Admin: 07/21/16 11:03 Dose: 80 mg Hydromorphone HCl (Dilaudid Injection -) 1 mg IVPUSH Q4H PRN PRN Reason: PAIN Last Admin: 07/20/16 22:23 Dose: 1 mg Aztreonam 0.5 gm/ Dextrose 50 mls @ 100 mls/hr IVPB Q8H-IV MALACHI PRN Reason: Protocol Last Admin: 07/21/16 09:51 Dose: 100 mls/hr Loratadine (Claritin -) 10 mg PO DAILY [facility] Last Admin: 07/21/16 09:51 Dose: 10 mg Non-Formulary Medication (Fesoterodine Fumarate [Toviaz]) 8 mg PO DAILY [facility] Last Admin: 07/20/16 17:46 Dose: Not Given Oxycodone HCl (Roxicodone -) 10 mg PO Q6H PRN PRN Reason: PAIN Pantoprazole Sodium (Protonix -) 40 mg PO DAILY [facility] Last Admin: 07/21/16 09:51 Dose: 40 mg - Objective Vital Signs: Vital Signs Temperature 98.2 F 07/21/16 10:10 Pulse Rate 84 07/21/16 10:10 Respiratory Rate 16 07/21/16 10:10 Blood Pressure 146/55 07/21/16 10:10 O2 Sat by Pulse Oximetry (%) 94 L 07/20/16 22:00 Constitutional: Yes: Well Nourished, No Distress, Calm Cardiovascular: Yes: Regular Rate and Rhythm. No: Gallop, Murmur, Rub Respiratory: Yes: Regular, CTA Bilaterally. No: Rales, Rhonchi, Wheezes Gastrointestinal: Yes: Normal Bowel Sounds, Soft. No: Distention, Tenderness Extremities: Yes: WNL Edema: No Labs: CBC, BMP 07/21/16 06:05 07/21/16 06:05 Problem List - Problems (1) ELSY (acute kidney injury) Code(s): N17.9 - ACUTE KIDNEY FAILURE, UNSPECIFIED (2) Diarrhea Code(s): R19.7 - DIARRHEA, UNSPECIFIED Qualifiers: Diarrhea type: presumed infectious Qualified Code(s): A09 - Infectious gastroenteritis and colitis, unspecified (3) Urinary retention Code(s): R33.9 - RETENTION OF URINE, UNSPECIFIED (4) Hydronephrosis Code(s): N13.30 - UNSPECIFIED HYDRONEPHROSIS Qualifiers: Hydronephrosis type: with other ureteral stricture Qualified Code(s) : N13.1 - Hydronephrosis with ureteral stricture, not elsewhere classified (5) Appendicitis Code(s): K37 - UNSPECIFIED APPENDICITIS (6) Anemia Code(s): D64.9 - ANEMIA, UNSPECIFIED Qualifiers: Anemia type: due to other cause (7) HTN (hypertension) Code(s): I10 - ESSENTIAL (PRIMARY) HYPERTENSION Qualifiers: Hypertension type: essential hypertension Qualified Code(s): I10 - Essential (primary) hypertension (8) PAD (peripheral artery disease) Code(s): I73.9 - PERIPHERAL VASCULAR DISEASE, UNSPECIFIED (9) CAD (coronary artery disease) Code(s): I25.10 - ATHSCL HEART DISEASE OF [place] CORONARY ARTERY W/O ANG PCTRS (10) UTI (urinary tract infection) Code(s): N39.0 - URINARY TRACT INFECTION, SITE NOT SPECIFIED Qualifiers: Urinary tract infection type: site unspecified Hematuria presence: without hematuria Qualified Code(s): N39.0 - Urinary tract infection, site not specified (11) Thrombocytopenia Code(s): D69.6 - THROMBOCYTOPENIA, UNSPECIFIED Assessment/Plan (1) ELSY (acute kidney injury) Assessment/Plan: -improving -continue IVF and sampson -nephrology following Code(s): N17.9 - ACUTE KIDNEY FAILURE, UNSPECIFIED (2) Diarrhea Assessment/Plan: -diarrhea resolved -appreciate ID assistance -flagyl stopped Code(s): R19.7 - DIARRHEA, UNSPECIFIED Qualifiers: Diarrhea type: presumed infectious Qualified Code(s): A09 - Infectious gastroenteritis and colitis, unspecified (3) Urinary retention Assessment/Plan: -urology following, can be discharged with sampson -safe for discharge from this standpoint but want to see improvement in platelets and renal function before discharge Code(s): R33.9 - RETENTION OF URINE, UNSPECIFIED (4) Hydronephrosis Assessment/Plan: -urology consulted -sampson placed and draining -will discharge home with sampson Code(s): N13.30 - UNSPECIFIED HYDRONEPHROSIS Qualifiers: Hydronephrosis type: with other ureteral stricture Qualified Code(s) : N13.1 - Hydronephrosis with ureteral stricture, not elsewhere classified (5) Appendicitis Assessment/Plan: -appreciate surgical consultation -no indication for surgery at this time -abdominal pain resolved with sampson Code(s): K37 - UNSPECIFIED APPENDICITIS (6) Anemia Assessment/Plan -decreased today -suspect dilutional -monitor Code(s): D64.9 - ANEMIA, UNSPECIFIED Qualifiers: Anemia type: due to other cause (7) HTN (hypertension) Assessment/Plan: -continue home regimen Code(s): I10 - ESSENTIAL (PRIMARY) HYPERTENSION Qualifiers: Hypertension type: essential hypertension Qualified Code(s): I10 - Essential (primary) hypertension (8) PAD (peripheral artery disease) Assessment/Plan: -continue pletal and aspirin Code(s): I73.9 - PERIPHERAL VASCULAR DISEASE, UNSPECIFIED (9) CAD (coronary artery disease) Assessment/Plan: -quiescent -continue home regimen Code(s): I25.10 - ATHSCL HEART DISEASE OF [place] CORONARY ARTERY W/O ANG PCTRS (10) Thrombocytopenia -improving (11) UTI -case d/w ID -stop aztreonam tomorrow Dispo -possible discharge tomorrow
--- NOTE | 2016-07-21 13:29 | PN ---
Progress Note (short form) - Note Progress Note: feels better afebrile no suprapubic tenderness urine clear may d/c home with sampson will schedule for suprapubic tube placement as outpt
[2016-07-21] MEDS: ATORVASTATIN CA 20 MG TABLET (FP) PO SCH (21:24)
[2016-07-22] MEDS: AZTREONAM 0.5 GM in DEXTROSE 5%-WATER - 50 ML IVPB SCH ×2 (03:07→10:29)
[2016-07-22 07:18] LABS: BASOPHIL 0.7 % (0-2.0); EOSINOPHIL 7.2 % (0-4.5); MCH 28.3 pg (25.7-33.7); MCHC 33.2 g/dl (32.0-35.9); MEAN CELL VOLUME 85.1 fl (80-96); MEAN PLT VOLUME 7.9 fl (7.5-11.1); NEUTROPHILS 59.7 % (42.8-82.8); PLATELET COUNT 98 K/MM3 (134-434); RDW 16.8 % (11.9-15.9); WHITE BLOOD COUNT 3.9 K/mm3 (4.0-10.0)
[2016-07-22 08:58] LABS: CALCIUM 7.7 mg/dL (8.5-10.1); COCKROFT - GAULT 36.89; CREATININE 1.6 mg/dL (0.7-1.3); MAGNESIUM 1.8 mg/dL (1.8-2.4)
--- NOTE | 2016-07-22 10:28 | DS ---
Physical Examination Vital Signs: Vital Signs Temperature 98.9 F 07/22/16 06:00 Pulse Rate 70 07/22/16 06:00 Respiratory Rate 18 07/22/16 06:00 Blood Pressure 142/55 07/22/16 06:00 O2 Sat by Pulse Oximetry (%) 95 07/21/16 22:00 Constitutional: Yes: Well Nourished, No Distress, Calm Cardiovascular: Yes: Regular Rate and Rhythm. No: Gallop, Murmur, Rub Respiratory: Yes: Regular, CTA Bilaterally. No: Rales, Rhonchi, Wheezes Gastrointestinal: Yes: Normal Bowel Sounds, Soft. No: Distention, Tenderness Renal/: Yes: Sampson Present Extremities: Yes: WNL Edema: No Labs: CBC, BMP 07/22/16 06:00 07/22/16 06:00 Discharge Summary Reason For Visit: ACUTE RENAL FAILURE/URETHAL STRICTURE Current Active Problems ARF (acute renal failure) (Acute) Appendicitis (Acute) CAD (coronary artery disease) (Acute) Diarrhea (Acute) Hydronephrosis (Acute) Thrombocytopenia (Acute) Urethral stricture (Acute) Urinary retention (Acute) Hospital Course: (1) ELSY (acute kidney injury) Code(s): N17.9 - ACUTE KIDNEY FAILURE, UNSPECIFIED (2) Diarrhea Code(s): R19.7 - DIARRHEA, UNSPECIFIED Qualifiers: Diarrhea type: presumed infectious Qualified Code(s): A09 - Infectious gastroenteritis and colitis, unspecified (3) Urinary retention Code(s): R33.9 - RETENTION OF URINE, UNSPECIFIED (4) Hydronephrosis Code(s): N13.30 - UNSPECIFIED HYDRONEPHROSIS Qualifiers: Hydronephrosis type: with other ureteral stricture Qualified Code(s) : N13.1 - Hydronephrosis with ureteral stricture, not elsewhere classified (5) Appendicitis Code(s): K37 - UNSPECIFIED APPENDICITIS (6) Anemia Code(s): D64.9 - ANEMIA, UNSPECIFIED Qualifiers: Anemia type: due to other cause (7) HTN (hypertension) Code(s): I10 - ESSENTIAL (PRIMARY) HYPERTENSION Qualifiers: Hypertension type: essential hypertension Qualified Code(s): I10 - Essential (primary) hypertension (8) PAD (peripheral artery disease) Code(s): I73.9 - PERIPHERAL VASCULAR DISEASE, UNSPECIFIED (9) CAD (coronary artery disease) Code(s): I25.10 - ATHSCL HEART DISEASE OF [place] CORONARY ARTERY W/O ANG PCTRS (10) UTI (urinary tract infection) Code(s): N39.0 - URINARY TRACT INFECTION, SITE NOT SPECIFIED Qualifiers: Urinary tract infection type: site unspecified Hematuria presence: without hematuria Qualified Code(s): N39.0 - Urinary tract infection, site not specified (11) Thrombocytopenia Code(s): D69.6 - THROMBOCYTOPENIA, UNSPECIFIED Mr Torres is a very pleasant 86 year old male who comes in with urinary retention causing renal failure and hydronephrosis. He was admitted to the hospital. Because of all his urologic procedures urology was consulted and sampson was placed. There was concern for UTI so ID was consulted and he was started on aztreonam. He also had diarrhea and was started on flagyl, but that resolved in the hospital and the flagyl was stopped. Cultures were followed up and were negative, the aztreonam was stopped. Nephrology was consulted for ARF and followed along. Renal function improved with sampson and he is safe for discharge with renal follow up. He was found to be thrombocytopenic, I suspect this was inflammatory as it improved as well. Currently he is safe for discharge home. 34 minutes spent in preparation of this discharge Condition: Good - Instructions Diet, Activity, Other Instructions: resume previous diet and activity. Referrals: Leonel Woo MD [Primary Care Provider] - Sea Perez MD [Staff Physician] - Disposition: HOME - Home Medications Comprehensive Discharge Medication List: Ambulatory Orders Pantoprazole Sodium [Protonix -] 40 mg PO DAILY #0 tablet.ec 11/03/12 Simvastatin [Zocor -] 40 mg PO DAILY 06/24/13 Cilostazol [Pletal -] 100 mg PO BID #30 tablet 06/17/14 Carvedilol [Coreg] 20 mg PO DAILY 08/26/14 Cetirizine HCl [Zyrtec -] 10 mg PO DAILY 08/26/14 Fesoterodine Fumarate [Toviaz] 8 mg PO DAILY 08/26/14 Cranberry Fruit Extract [Theracran Hp For Kids] 36 mg PO DAILY 03/17/16 Aspirin [ASA -] 81 mg PO DAILY 07/05/16 Febuxostat [Uloric -] 80 mg PO DAILY 07/19/16 Ferrous Sulfate 65 mg PO ASDIR 07/19/16 Aclidinium [place] [Tudorza -] 1 puff IH BID inhaler 07/22/16 Budesonide/Formeterol Fumarate [SYMBICORT 80/4.5mcg -] 2 puff IH BID inhaler
[2016-07-22] MEDS: ASPIRIN 81 MG CHEWABLE TABLETS PO SCH (10:29)
[2016-07-22] MEDS: CILOSTAZOL 100 MG TABLET PO SCH (10:29)
[2016-07-22] MEDS: FEBUXOSTAT 80 MG TAB PO SCH (10:29)
[2016-07-22] MEDS: CARVEDILOL PHOSPHATE CR 20 MG CAPSULE (FP) PO SCH (10:29)
[2016-07-22] MEDS: LORATADINE 10 MG TABLET PO SCH (10:29)
[2016-07-22] MEDS: ACLIDINIUM BROMIDE 400 MCG/INH AERO.POWD IH SCH (10:29)
[2016-07-22] MEDS: BUDESONIDE/FORMETEROL FUMARATE 80/4.5 mcg INHALER IH SCH (10:29)
[2016-07-22] MEDS: PANTOPRAZOLE 40 MG TABLET (FP) PO SCH (10:29)
[2016-07-22] MEDS: PATIENT'S OWN MEDICATION (NON-FORMULARY) (Fesoterodine Fumarate [Toviaz] 8 MG) PO SCH ×2 (10:37→12:43)
--- NOTE | 2016-07-22 10:58 | PN ---
Progress Note (short form) - Note Progress Note: Renal follow up for ELSY on CKD Pt seen and examined at the bedside no acute complaints sampson in place with good urine output for discharge today Vital Signs Temperature 98.9 F 07/22/16 06:00 Pulse Rate 70 07/22/16 06:00 Respiratory Rate 18 07/22/16 06:00 Blood Pressure 142/55 07/22/16 06:00 O2 Sat by Pulse Oximetry (%) 95 07/21/16 22:00 Intake & Output 07/19/16 07/20/16 07/21/16 07/22/16 23:59 23:59 23:59 23:59 Intake Total 60 2760 1758 250 Output Total 300 1900 1300 Balance -240 860 458 250 Weight 180 lb 3.2 oz Gen: NAD, awake and alert HEENT: NC/AT, No JVD, Neck supple CVS: RRR, No M/R Lungs: CTA, no rales or wheeze Abd: soft NT/ND Ext: No edema, clubbing or cyanosis : Sampson in place CBC, BMP 07/22/16 06:00 07/22/16 06:00 Laboratory Tests 07/22/16 06:00 Calcium 7.7 L Phosphorus 3.0 Magnesium 1.8 Current Medications Acetaminophen (Tylenol -) 650 mg PO Q4H PRN PRN Reason: FEVER OR PAIN Aclidinium [place] (Tudorza -) 1 puff IH BID [facility] Last Admin: 07/22/16 10:29 Dose: 1 puff Albuterol Sulfate (Ventolin 0.083% Nebulizer Soln -) 1 amp NEB Q6H PRN PRN Reason: SHORT OF BREATH/WHEEZING Last Admin: 07/21/16 19:15 Dose: 1 amp Aspirin (Asa -) 81 mg PO DAILY [facility] Last Admin: 07/22/16 10:29 Dose: 81 mg Atorvastatin Calcium (Lipitor -) 20 mg PO HS [facility] Last Admin: 07/21/16 21:24 Dose: 20 mg Budesonide/Formoterol Fumarate (Symbicort 80/4.5mcg -) 2 puff IH BID [facility] Last Admin: 07/22/16 10:29 Dose: 2 puff Carvedilol (Coreg Cr -) 20 mg PO DAILY [facility] Last Admin: 07/22/16 10:29 Dose: 20 mg Cilostazol (Pletal -) 100 mg PO BID [facility] Last Admin: 07/22/16 10:29 Dose: 100 mg Febuxostat (Uloric -) 80 mg PO DAILY [facility] Last Admin: 07/22/16 10:29 Dose: 80 mg Hydromorphone HCl (Dilaudid Injection -) 1 mg IVPUSH Q4H PRN PRN Reason: PAIN Last Admin: 07/20/16 22:23 Dose: 1 mg Aztreonam 0.5 gm/ Dextrose 50 mls @ 100 mls/hr IVPB Q8H-IV [facility] PRN Reason: Protocol Last Admin: 07/22/16 10:29 Dose: 100 mls/hr Loratadine (Claritin -) 10 mg PO DAILY [facility] Last Admin: 07/22/16 10:29 Dose: 10 mg Non-Formulary Medication (Fesoterodine Fumarate [Toviaz]) 8 mg PO DAILY [facility] Last Admin: 07/22/16 10:37 Dose: Not Given Oxycodone HCl (Roxicodone -) 10 mg PO Q6H PRN PRN Reason: PAIN Pantoprazole Sodium (Protonix -) 40 mg PO DAILY [facility] Last Admin: 07/22/16 10:29 Dose: 40 mg A/P 86 year old gentleman with PMhx of CKD Stage 3 (baseline Cr 1.2-1.4), AAA s/p repair, CAD s/p CABG, Prostate Ca, Gout, Artificial urethral sphincter who presented with Abd/Flank pain and urinary retention and found to have ELSY in setting of Obstruction with suspected UTI. #Acute Renal Failure secondary to obstruction Renal function continuing to improve pt encouraged to maintain good fluid intake at home maintain sampson pending urology follow up for supra-pubic catheter placement in 2 weeks advised to avoid NSAIDs for the time being Thank you for this referral pt to follow up as an outpatient Sancho Cespedes DO
[2016-07-22] MEDS ORDERED: PT OWN MED DRAWER 7, Y5N ONE ×2 (11:04→11:54)
[2016-07-22 13:23] VITALS: BP 135/54; PULSE 66; TEMP 98.2
[2016-07-22] MEDS ORDERED: DOCUSATE SODIUM 100 MG CAPSULE (FP) PO ONE (14:01)
== END 2016-07-22 14:30 | disposition home or self-care (01) | DRG 683 ==
LOC: JER 10:53 → JERBED 20:10 → J5S 21:23
PROVIDERS: ADMIT Internal Medicine; ATTEND Internal Medicine
DX: N17.9 Acute kidney failure, unspecified (principal); I13.0 Hypertensive heart and chronic kidney disease with heart failure and stage 1 through stage 4 chronic kidney disease, or unspecified chronic kidney disease; N39.0 Urinary tract infection, site not specified; E87.2 Acidosis; N13.1 Hydronephrosis with ureteral stricture, not elsewhere classified; R33.8 Other retention of urine; I25.10 Atherosclerotic heart disease of native coronary artery without angina pectoris; I25.2 Old myocardial infarction; I73.89 Other specified peripheral vascular diseases; J44.9 Chronic obstructive pulmonary disease, unspecified; K21.9 Gastro-esophageal reflux disease without esophagitis; M10.9 Gout, unspecified; K37 Unspecified appendicitis; D64.9 Anemia, unspecified; A08.8 Other specified intestinal infections; N40.0 Benign prostatic hyperplasia without lower urinary tract symptoms; N35.9 Urethral stricture, unspecified; D69.6 Thrombocytopenia, unspecified; N18.3 Chronic kidney disease, stage 3 (moderate); I50.9 Heart failure, unspecified; Z87.891 Personal history of nicotine dependence; Z85.46 Personal history of malignant neoplasm of prostate; Z88.0 Allergy status to penicillin
CPT/HCPCS: 36415; 74176-TC; 80048; 80053; 81003; 81015; 82272; 83735; 84100; 85025; 87040; 87086; 93005; 93010; 94640; 97116-GP; 97161; 99283-25; J1644; Q9967

== ENCOUNTER 2016-08-15 14:21 | Day surgery (SDC) | payer OTHER, BC ==
[2016-08-12 14:46] VITALS: BMI 29.0
[2016-08-15] MEDS ORDERED: PROPOFOL 20 ML ONE (16:08)
[2016-08-15] MEDS ORDERED: ePHEDrine SULFATE 50 MG/1 ML AMPULE ONE ×2 (16:16→16:38)
[2016-08-15] MEDS ORDERED: CLINDAMYCIN 900 MG PREMIX BAG IVPB ONE (16:24)
--- NOTE | 2016-08-15 18:22 | OP ---
Operative Note - Note: Operative Date: 08/15/16 Pre-Operative Diagnosis: urethral stricture, retention Operation: cysto, open cystostomy with drainage Findings: retention Post-Operative Diagnosis: Same as Pre-op Surgeon: Sea Perez Anesthesia: General
[2016-08-15] MEDS ORDERED: ELECTROLYTE-148 SOLN 1,000 ML IV SCH (18:30)
[2016-08-15] MEDS ORDERED: LACTATED RINGERS SOLUTION 1,000 ML IV SCH (19:45)
[2016-08-15] MEDS: oxyCODONE HCL 5 MG TABLET PO PRN (21:25)
[2016-08-16] MEDS: oxyCODONE HCL 5 MG TABLET PO PRN (05:28)
--- NOTE | 2016-08-16 11:17 | OP ---
DATE OF OPERATION: 08/15/2016 PREOPERATIVE DIAGNOSIS: Urinary retention. POSTOPERATIVE DIAGNOSIS: Urinary retention. PROCEDURE: Cystoscopy, open suprapubic cystostomy with drainage. SURGEON: Sea Perez MD INDICATION: Patient is an 86-year-old male with urinary retention, who elected to undergo suprapubic tube placement for recurrent retention. Risks, benefits, and alternatives discussed. DESCRIPTION OF PROCEDURE: Patient was taken to the OR and placed supine on the operating table. After cardiac monitoring and general anesthesia established, he was prepped and draped in the dorsal lithotomy position. The lower abdomen and penis were prepped and draped in dorsal lithotomy position. At this point, the existing Howard catheter had been removed. A cystoscopy was performed and the bladder filled up with water. An 18-Qatari Howard catheter was then placed to straight drainage and then clamped. At this point, an approximately 3-cm infrapubic incision was created with a number-15 blade down to the level of the fascia. The fascia was incised. The perivesical fat was then freed up, and then, the bladder was then visualized. Two stay sutures of 2-0 Vicryl were placed on the bladder, and then, the bladder was incised with cautery. Then, water that was placed in the bladder was then drained out. An 18-Qatari Howard was then placed as a suprapubic cystostomy tube into the cystostomy that was created, and then, the bladder opening was closed around the tube with 2-0 Vicryl. The suprapubic tube was irrigated and irrigated easily, and irrigation tube/suprapubic tube yielded drainage through the Howard catheter. Urine was pink. The tube was then brought out through the midline incision. The subcutaneous tissue was closed and the muscle layer was closed with a 2-0 Vicryl, and then, the skin was closed with skin michele and leaving a space for the suprapubic tube to exit through the skin incision. Dry sterile dressing was placed. Patient was awoken from anesthesia and transferred to the recovery room in stable condition. There were no complications. Estimated blood loss was minimal. Marixa [id number]
[2016-08-16 11:25] VITALS: BP 104/47; PULSE 62; TEMP 99
== END 2016-08-16 11:51 | disposition home health service (06) ==
LOC: JASU-SURG 14:21 → J6S 20:33 → JASU-SURG 08-16 11:51
PROVIDERS: ATTEND Urology
PROC: 0TJB8ZZ Inspection of Bladder, Via Natural or Artificial Opening Endoscopic (ICD-10-PCS; 2016-08-15)
PROC: 0T9B00Z Drainage of Bladder with Drainage Device, Open Approach (ICD-10-PCS; principal; 2016-08-15 15:30)
DX: R33.9 Retention of urine, unspecified (principal); I12.9 Hypertensive chronic kidney disease with stage 1 through stage 4 chronic kidney disease, or unspecified chronic kidney disease; N18.9 Chronic kidney disease, unspecified; R73.03 Prediabetes; E78.5 Hyperlipidemia, unspecified; Z85.46 Personal history of malignant neoplasm of prostate; D64.9 Anemia, unspecified
CPT/HCPCS: 94760

== ENCOUNTER 2017-04-06 09:30 | Day surgery (SDC) | payer OTHER, BC ==
[2017-04-05 10:16] VITALS: BMI 26.6
[2017-04-06] MEDS ORDERED: LIDOCAINE HCL 2% 100 MG/5 ML DISP.SYRIN ONE (11:28)
[2017-04-06] MEDS ORDERED: PROPOFOL 20 ML ONE (11:29)
[2017-04-06] MEDS ORDERED: oxyCODONE HCL 5 MG TABLET PO PRN (11:54)
[2017-04-06] MEDS ORDERED: ELECTROLYTE-148 SOLN 1,000 ML IV SCH (12:00)
--- NOTE | 2017-04-06 12:00 | OP ---
Operative Note - Note: Operative Date: 04/06/17 Pre-Operative Diagnosis: retained SPT/urethral stricture Operation: cysto/removal/replacement SPT Findings: retained SPT Post-Operative Diagnosis: Same as Pre-op Surgeon: Sea Perez Anesthesia: General Estimated Blood Loss (mls): 0 Operative Report Dictated: Yes
[2017-04-06] MEDS ORDERED: ACETAMINOPHEN 325 MG TABLET (FP) PO PRN (12:06)
[2017-04-06] MEDS ORDERED: LACTATED RINGERS SOLUTION 1,000 ML IV SCH (12:15)
--- NOTE | 2017-04-06 13:33 | OP ---
DATE OF OPERATION: 04/06/2017 PREOPERATIVE DIAGNOSES: Retained suprapubic tube and urethral stricture. POSTOPERATIVE DIAGNOSES: Retained suprapubic tube and urethral stricture. PROCEDURE: Cystoscopy, removal of retained suprapubic tube. SURGEON: Maggie Cardenas MD INDICATION: Patient is an 86-year-old male with urinary retention and urinary incontinence, who had been managed in the most recent past with a chronic suprapubic tube. Most recently, when he presented to the office to have his suprapubic changed, the balloon would not deflate; so, he was taken to the OR for removal of the defective suprapubic catheter and placement of a new suprapubic catheter and possibility of cystoscopy and dilatation. DESCRIPTION OF PROCEDURE: The patient was taken to the OR, placed supine on the table. After cardiac monitoring had been administered and general anesthesia established, he was prepped and draped in the dorsal lithotomy position. At this point, the suprapubic tube was placed up against the abdominal wall. The balloon was palpated, and a 10-mL syringe with a 25-gauge needle was inserted through the skin right into the balloon to deflate the balloon. This was successful in deflating balloon, and thereby, the suprapubic tube was able to be removed. A new 18-[place]in suprapubic tube was then placed under sterile conditions and irrigated until clear. At this point, cystoscopy was performed. The flexible cystoscope inserted into the urethra. Just beyond the meatus into the fossa navicularis, but dense stricture was noted there. Due to his history of incontinence, it was decided not to dilate the stricture, to prevent worsening of incontinence. Cystoscope was then removed, and the patient then awoken from anesthesia and transferred to Recovery in stable condition. There were no complications. Estimated blood loss was 0. MAGGIE CARDENAS M.D. [id number]
[2017-04-06 13:57] VITALS: BP 132/65; PULSE 60; TEMP 97.9
--- NOTE | 2017-04-07 16:38 | PATH ---
Surgical Pathology Report Patient Name: BARBARA WILL [facility]. Rec. #: [id number] /Age/Gender: 1930 (Age: 86) / M Account: [id number] Location: [facility] Taken: 04/06/2017 Received: 04/06/2017 Reported: 04/07/2017 Physicians: Sea Perez M.D. Specimen(s) Received OLD DEFFECTIVE (MORALES) SUPRAPUBIC TUBE Clinical History Defective retained suprapubic tube, urethral stricture Final Diagnosis OLD DEFECTIVE (MORALES), SUPRAPUBIC TUBE, REMOVAL: CONSISTENT WITH CATHETER. MACROSCOPIC DIAGNOSIS. Electronically Signed Chelsea Haynes M.D. Gross Description Received fresh labeled "old defect of suprapubic tube," is a 45 cm in length albright-yellow portion of tubing, consistent with a catheter. No soft tissue is present. No sections are submitted, gross only. /04/06/201704/06/2017
== END 2017-04-06 13:35 | disposition home or self-care (01) ==
LOC: JASU-SURG 09:30
PROVIDERS: ATTEND Urology
PROC: 0T2BX0Z Change Drainage Device in Bladder, External Approach (ICD-10-PCS; principal; 2017-04-06 11:00)
DX: N35.9 Urethral stricture, unspecified (principal); R32 Unspecified urinary incontinence; T83.89XA Other specified complication of genitourinary prosthetic devices, implants and grafts, initial encounter
CPT/HCPCS: 88300-TC; 94760

== ENCOUNTER 2017-04-24 09:22 | Inpatient (IN) | payer OTHER, BC ==
[2017-04-20 15:31] VITALS: BMI 26.6
--- NOTE | 2017-04-24 10:03 | HP ---
Admitting History and Physical - Admission History of Present Illness: 87 year old man with severe stenosis of right carotid artery. He had a transient episode of left arm paralysis in Dec 2016. Carotid Duplex showed bilateral carotid stenosis, >80% right, 60-80% left. He has had no further neuro symptoms since. Limitations to Obtaining History: No Limitations - Past Medical History Cardiovascular: Yes: CAD, HTN, OK, Other (PAD) Pulmonary: Yes: COPD. 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) Rheumatology: Yes: Gout - Past Surgical History Past Surgical History: Yes: AAA Repair, Bypass (LE), CABG (3v) - Smoking History Smoking history: Former smoker Have you smoked in the past 12 months: No Aproximately how many cigarettes per day: 80 If you are a former smoker, when did you quit?: 1979 - Alcohol/Substance Use Hx Alcohol Use: No History of Substance Use: reports: None - Social History ADL: Independent History of Recent Travel: No Home Medications - Allergies Allergies/Adverse Reactions: Allergies Allergy/AdvReac Type Severity Reaction Status Date / Time beeswax Allergy Severe Verified 04/20/17 15:20 cephalexin monohydrate Allergy Severe Verified 04/20/17 15:20 [From Keflex] honey Allergy Severe Verified 04/20/17 15:20 Penicillins Allergy Severe Rash Verified 04/20/17 15:20 tetracycline [Tetracycline] Allergy Severe Rash Verified 04/20/17 15:20 Nitrofuran Analogues Allergy Verified 04/20/17 15:20 ondansetron HCl AdvReac Unknown Hives Verified 04/20/17 15:20 [From Zofran (as hydrochloride)] hydromorphone HCl AdvReac Verified 04/20/17 15:20 [From Dilaudid] papertape Allergy Uncoded 04/20/17 15:20 - Home Medications Home Medications: Ambulatory Orders Pantoprazole Sodium [Protonix -] 40 mg PO DAILY #0 tablet.ec 11/03/12 Carvedilol [Coreg] 12.5 mg PO DAILY 08/26/14 Cetirizine HCl [Zyrtec -] 10 mg PO DAILY 08/26/14 Fesoterodine Fumarate [Toviaz] 8 mg PO DAILY 08/26/14 Cranberry Fruit Extract [Theracran Hp For Kids] 36 mg PO DAILY 03/17/16 Aspirin [ASA -] 81 mg PO DAILY 07/05/16 Febuxostat [Uloric -] 40 mg PO DAILY 07/19/16 Albuterol Sulfate [Proventil HFA Inhaler -] 1 - 2 inh PO TID PRN 08/10/16 Propylene Glycol/Peg 400/Pf [Systane 0.3-0.4% Eye Drops] 2 each OP BID 08/10/16 Tiotropium [place] [Spiriva] 1 inh IH DAILY 08/10/16 Budesonide/Formeterol Fumarate [SYMBICORT 80/4.5mcg -] 2 puff IH BID 08/15/16 Atorvastatin Ca [Lipitor] 40 mg PO DAILY 04/05/17 Clopidogrel Bisulfate [Plavix] 75 mg PO DAILY 04/05/17 Cyclosporine [Restasis] 1 each OP BID 04/24/17 Physical Examination Constitutional: Yes: No Distress Eyes: Yes: WNL, EOM Intact HENT: Yes: WNL Neck: Yes: Supple, Other (bilateral bruit) Cardiovascular: Yes: Regular Rate and Rhythm Respiratory: Yes: Regular Gastrointestinal: Yes: Soft Extremities: Yes: WNL Edema: No Neurological: Yes: Alert, Oriented Imaging - Results Ultrasound: Image Reviewed (Carotid Duplex 02/03/17 on chart) Problem List - Problems (1) Carotid stenosis, symptomatic w/o infarct Assessment/Plan: Right carotid severe stenosis with recent TIA. Patient is in general good health and lives independently. Risks of surgery including stroke, OK, bleeding , infection, discussed with patient and family. Plan right carotid endarterectomy. ICU post-op. Code(s): I65.29 - OCCLUSION AND STENOSIS OF UNSPECIFIED CAROTID ARTERY Qualifiers: Laterality: right Qualified Code(s): I65.21 - Occlusion and stenosis of right carotid artery
[2017-04-24] MEDS ORDERED: POVIDONE-IODINE OINTMENT 10% - 28.4 GM TUBE ONE (10:28)
[2017-04-24] MEDS ORDERED: LIDOCAINE HCL 0.5%, 5 MG/ML (50mL SDVIAL) ONE (10:28)
[2017-04-24] MEDS ORDERED: HEPARIN NA (PORCINE) 5,000 UNITS/ML 1ML VIAL ONE (10:28)
[2017-04-24] MEDS ORDERED: MIDAZOLAM HCL 2 MG/2 ML SINGLE DOSE VIAL ONE (10:43)
[2017-04-24] MEDS ORDERED: fentaNYL CITRATE 250 MCG/5 ML VIAL ONE (10:43)
[2017-04-24] MEDS ORDERED: VANCOMYCIN 1,000 MG in DEXTROSE 5%-WATER - 250 ML IVPB ONE (11:15)
[2017-04-24] MEDS ORDERED: VANCOMYCIN 1,000 MG VIAL (RESTRICTED TO ID ONLY) IVPB ONE (11:20)
[2017-04-24] MEDS ORDERED: VANCOMYCIN 1,000 MG VIAL (RESTRICTED TO ID ONLY) ONE (11:42)
[2017-04-24] MEDS ORDERED: ePHEDrine SULFATE 50 MG/1 ML AMPULE ONE (11:47)
[2017-04-24] MEDS ORDERED: DEXAMETHASONE SOD PHOSPHATE 4 MG/1 ML VIAL ONE (11:54)
[2017-04-24] MEDS ORDERED: PROTAMINE SULFATE 50 MG/5 ML VIAL ONE (13:09)
[2017-04-24] MEDS ORDERED: GLYCOPYRROLATE 0.2 MG/1 ML VIAL ONE (13:10)
[2017-04-24] MEDS ORDERED: NEOSTIGMINE METHYLSULFATE 0.5 MG/ML - 10 ML MDV ONE (13:10)
[2017-04-24] MEDS ORDERED: ALBUTEROL SO4 18 GM HFA INHALER IH PRN ×2 (13:29→15:51)
--- NOTE | 2017-04-24 13:34 | OP ---
Operative Note - Note: Operative Date: 04/24/17 Pre-Operative Diagnosis: Right carotid stenosis, history TIA Operation: Right carotid endarterectomy Findings: Large plaque right carotid bulb Implants: Thin walled Dacron collagen-coated patch Post-Operative Diagnosis: Same as Pre-op Surgeon: Delmar Gandhi Sales Force Developer: Corrina Hauser Anesthesiologist/DIE MOUNTER: Rosa Gomez MD Anesthesia: General Specimens Removed: Right carotid plaque Estimated Blood Loss (mls): 100
[2017-04-24] MEDS ORDERED: oxyCODONE HCL 5 MG TABLET PO PRN ×2 (13:35→13:38)
[2017-04-24] MEDS ORDERED: ACETAMINOPHEN 325 MG TABLET (FP) PO PRN (13:39)
--- NOTE | 2017-04-24 13:41 | SURG ---
Surgery Director Energy Note Director Energy: Corrina Hauser PA-C Date of Service: 04/24/17 Diagnosis: Right carotid stenosis, history TIA Procedure: Right carotid endarterectomy I was present for the entirety of the operative procedure. For further detail, please refer to operative report. Visit type - Case Type Case Type: Scheduled Admission - Emergency Emergency Visit: No - New patient This patient is new to me today: Yes Date on this admission: 04/24/17
[2017-04-24] MEDS ORDERED: PROMETHAZINE HCL 25 MG/1 ML VIAL IVPUSH PRN (14:02)
[2017-04-24] MEDS ORDERED: ONDANSETRON 4 MG/2 ML VIAL IVPUSH PRN (14:02)
[2017-04-24] MEDS ORDERED: LACTATED RINGERS SOLUTION 1,000 ML IV SCH (14:15)
[2017-04-24] MEDS: DEXTROSE 5%-0.45% SALINE 1,000 ML IV SCH ×2 (15:00→20:00)
--- NOTE | 2017-04-24 16:45 | PN ---
Progress Note (short form) - Note Progress Note: Pt seen and examined. He has mild complaints of incision pain. NO CP/SOB/nausea/ dizziness. His HR has been in the 40's since admission to the ICU Vital Signs Period Temp Pulse Resp BP Sys/Child Pulse Ox Last 24 Hr 97.6 F-98.4 F 43-74 12-20 107-135/40-80 96-100 GEN: appears comfortable, Alert and oriented Neck: Right dressing c/d/i. No masses. Neck supple Neuro: moving upper ext b/l and medicare sales executive strength equal A/P: 87 yo male s/p Right CEA Spoke with the medical residents and his hydrometer tester was called for a consult He remains hemodynamically stable and asymptomatic from his bradycardia Ordered labs cbc/chem 10 post-op Tylenol given for pain and may have sips of clears this evening No swelling at the surgical incision Continue ICU care D/w Dr. Gandhi
--- NOTE | 2017-04-24 16:56 | PN ---
Progress Note (short form) - Note Progress Note: Patient was brought from PACU after right carotid end arterectomy done today by Dr. Gandhi. In the OR, HR was around 50's- 60's bpm. In the PACU, HR dropped to 40's and remained between 40- 42bpm in the ICU. Patient was asymptomatic. Denies chest pain, sob, cough, palpitation, abdominal pain, nausea or vomiting. Stat EKG was done which showed HR: 40, Qtc of 449, First degree heart block, Right bundle branch block. CBC, BMP, Mg, Phos sent. Will follow the report and replete as needed. Case discussed with Dr. Cottrell who recommended to monitor closely, if BP/HR drops, to start him on IV Dopamine.
[2017-04-24 17:11] LABS: BASO % 0.5 % (0-2.0); EOS % 1.3 % (0-4.5); HEMATOCRIT 31.1 % (35.4-49); HEMOGLOBIN 10.3 GM/dL (11.7-16.9); LYMPH % 7.6 % (8-40); MCH 28.8 pg (25.7-33.7); MCHC 33.1 g/dl (32.0-35.9); MEAN CELL VOLUME 86.9 fl (80-96); MEAN PLT VOLUME 7.7 fl (7.5-11.1); MONO % 2.9 % (3.8-10.2); NEUT % 87.7 % (42.8-82.8); PLATELET COUNT 133 K/MM3 (134-434); RBC 3.58 M/mm3 (4.00-5.60); WHITE BLOOD COUNT 6.4 K/mm3 (4.0-10.0)
[2017-04-24 18:05] LABS: ANION GAP 8 (8-16); BLOOD UREA NITROGEN 32 mg/dL (7-18); CALCIUM 7.8 mg/dL (8.5-10.1); CHLORIDE 108 mmol/L (98-107); CO2 24 mmol/L (21-32); CREATININE 1.4 mg/dL (0.7-1.3); GLUCOSE,RANDOM 134 mg/dL (74-106); PHOSPHOROUS 4.1 mg/dL (2.5-4.9); POTASSIUM 4.1 mmol/L (3.5-5.1); SODIUM 140 mmol/L (136-145)
--- NOTE | 2017-04-24 19:05 | CON.CARD ---
Cardiology Consult (text) - Consultation Consultation Note: CC: post-op bradycardia 87 yo with CAD/prior MO with prior CABG, h/o AAA repair, PAD s/p fem-pop x multiple, htn, hl, diastolic chf (not requiring diuretics), RBBB, abdominal adhesions, hernias, anemia, Prostate Cancer, colon cA s/p resection, copd/ small airway obstruction (followed by Dr. Nassar - on inhalers), gerd, ckd ( bline cr 1.3-1.5 per office notes), GOUT, Artificial Urethral Sphincter, symptomatic carotid stenosis on dapt s/p Rt CEA today, post-op course complicated by asx bradycardia. s/p CEA today (no complications with surgery itself). Received general anesthesia including sedation with propofol. Post-operatively noted to be bradycardic in the 40's. asx. hemodynamically stable. Pain overall controlled at surgical site. + sore throat. took home coreg dose this morning. No cp, sob, palps, dizziness, orthopnea, pnd, le edema. no f/c/s, n/v/d, cough, congestion, visual disturbances, rashes, h/a. + hard of hearing. Pmhx/Past Surgical History: Per hpi, AAA Repair, Bypass (LE), CABG Social History: Former smoker, no etoh family hx: sister with cva ros: per phi Home meds Pantoprazole Sodium [Protonix -] 40 mg PO DAILY #0 tablet.ec 11/03/12 Carvedilol [Coreg] 12.5 mg PO DAILY 08/26/14 Cetirizine HCl [Zyrtec -] 10 mg PO DAILY 08/26/14 Fesoterodine Fumarate [Toviaz] 8 mg PO DAILY 08/26/14 Cranberry Fruit Extract [Theracran Hp For Kids] 36 mg PO DAILY 03/17/16 Aspirin [ASA -] 81 mg PO DAILY 07/05/16 Febuxostat [Uloric -] 40 mg PO DAILY 07/19/16 Albuterol Sulfate [Proventil HFA Inhaler -] 1 - 2 inh PO TID PRN 08/10/16 Propylene Glycol/Peg 400/Pf [Systane 0.3-0.4% Eye Drops] 2 each OP BID 08/10/16 Tiotropium [place] [Spiriva] 1 inh IH DAILY 08/10/16 Budesonide/Formeterol Fumarate [SYMBICORT 80/4.5mcg -] 2 puff IH BID 08/15/16 Atorvastatin Ca [Lipitor] 40 mg PO DAILY 04/05/17 Clopidogrel Bisulfate [Plavix] 75 mg PO DAILY 04/05/17 Cyclosporine [Restasis] 1 each OP BID 04/24/17 Current Medications Acetaminophen (Tylenol -) 650 mg PO Q6H PRN PRN Reason: PAIN Albuterol Sulfate (Ventolin Hfa Inhaler -) 1 puff IH Q8H PRN PRN Reason: ASTHMA Albuterol Sulfate (Ventolin Hfa Inhaler -) 2 puff IH Q8H PRN PRN Reason: ASTHMA Aspirin (Asa -) 81 mg PO DAILY [facility] Atorvastatin Calcium (Lipitor -) 40 mg PO DAILY [facility] Budesonide/Formoterol Fumarate (Symbicort 80/4.5mcg -) 2 puff IH BID [facility] Carvedilol (Coreg -) 12.5 mg PO DAILY [facility] Chlorhexidine Gluconate (Hibiclens For Decolonization -) 1 applic TP HS [facility] Clopidogrel Bisulfate (Plavix -) 75 mg PO DAILY [facility] Febuxostat (Uloric -) 40 mg PO DAILY [facility] Fentanyl (Sublimaze Injection -) 50 mcg IVPUSH Q5M PRN PRN Reason: PAIN-PACU ORDER X 4 DOSES ONLY Fentanyl (Sublimaze Injection -) 25 mcg IVPUSH Q5M PRN PRN Reason: PAIN-PACU ORDER X 4 DOSES ONLY Heparin Sodium (Porcine) (Heparin -) 5,000 unit SQ TID [facility] Dextrose/Sodium Chloride (D5-1/2ns -) 1,000 mls @ 75 mls/hr IV ASDIR [facility] Last Admin: 04/24/17 15:00 Dose: 0 mls Lactated Ringer's (Lactated Ringers Solution) 1,000 mls @ 125 mls/hr IV ASDIR [facility] Loratadine (Claritin -) 10 mg PO DAILY [facility] Mupirocin (Bactroban Ointment (For Decolonization) -) 1 applic NS BID [facility] Stop: 04/29/17 21:59 Non-Formulary Medication (Cyclosporine [Restasis]) 1 each OP BID [facility] Non-Formulary Medication (Fesoterodine Fumarate [Toviaz]) 8 mg PO DAILY [facility] Non-Formulary Medication (Propylene Glycol/Peg 400/Pf [Systane 0.3-0.4% Eye Drops]) 2 each OP BID [facility] Ondansetron HCl (Zofran Injection) 4 mg IVPUSH Q6H PRN PRN Reason: NAUSEA AND/OR VOMITING Oxycodone HCl (Roxicodone -) 5 mg PO Q6H PRN PRN Reason: PAIN LEVEL 1-5 Oxycodone HCl (Roxicodone -) 10 mg PO Q6H PRN PRN Reason: PAIN LEVEL 6-10 Pantoprazole Sodium (Protonix -) 40 mg PO DAILY [facility] Promethazine HCl (Phenergan Injection -) 12.5 mg IVPUSH Q6H PRN PRN Reason: NAUSEA-FOR RESCUE AFTER 15 MIN Tiotropium [place] (Spiriva -) 1 puff IH DAILY [facility] Vital Signs: Vital Signs - 24 hr 04/24/17 04/24/17 04/24/17 10:06 13:31 13:45 Temperature 97.8 F 98.4 F Pulse Rate 74 55 L 48 L Respiratory 20 12 14 Rate Blood Pressure 135/59 131/52 118/46 O2 Sat by Pulse 100 100 100 Oximetry (%) 04/24/17 04/24/17 04/24/17 14:00 14:15 14:30 Temperature Pulse Rate 45 L 44 L 43 L Respiratory 12 12 12 Rate Blood Pressure 115/44 111/40 107/41 O2 Sat by Pulse 100 96 100 Oximetry (%) 04/24/17 04/24/17 04/24/17 14:45 15:00 15:15 Temperature 98.0 F 97.6 F Pulse Rate 43 L 43 L 43 L Respiratory 14 16 20 Rate Blood Pressure 109/42 114/42 114/80 O2 Sat by Pulse 97 99 Oximetry (%) 04/24/17 04/24/17 04/24/17 15:30 16:02 17:04 Temperature Pulse Rate 43 L 49 L 47 L Respiratory 20 18 22 Rate Blood Pressure 110/50 127/46 116/46 O2 Sat by Pulse Oximetry (%) Intake & Output 04/22/17 04/23/17 04/24/17 04/25/17 07:59 07:59 07:59 07:59 Intake Total 1375 Output Total 375 Balance 1000 Eyes: No: Sclera Icterus HENT: No: Nasal Congestion Neck: No: Decreased ROM Respiratory: Yes: trace ra;es. No: Accessory Muscle Use Gastrointestinal: Yes: Normal Bowel Sounds. No: Distention, Hepatomegaly, Palpable Mass, Tenderness Cardiovascular: Yes: Regular Rate and Rhythm JVD: tds b/c of dressing but does not appear elevated. Carotid Bruit: No PMI: Non-Displaced Heart Sounds: Yes: S1, S2. No: Gallop Murmur: No: Systolic Murmur, Diastolic Murmur Musculoskeletal: Yes: Other (No kyphosis) Extremities: No: Cold, Cyanosis Edema: No Peripheral Pulses: diminished dp/pt Integumentary: No: Jaundice Neurological: Yes: Alert, Oriented (x3) Psychiatric: No: Agitated - Other Data Labs, Other Data: CBC, BMP 04/24/17 17:00 04/24/17 17:00 Laboratory Tests 04/24/17 04/24/17 17:00 17:00 Magnesium 2.0 Troponin I < 0.02 ekg: SB. av delay 312 ms, RBBB, qtc wnl. non-specific lateral t wave abnormalities. tele: SB. rare 2-4 beat runs of AIVR MPI 09/2015 (joe): No ischemic ST-T changes. No evidence of ischemia. ( Diaphragm attenuation artifact present.) Normal LVEF. Normal LV cavity size with no transient dilation. Echo 02/2017: tds nl lv size/fn. unalbe to assess rv size. nl rv fn. 1+ ekmar. 1 + mac. Increased DE end-diastolic velocity. No rvsp. bline/mild ao dilation. small chronic effusion vs. fat pad. Echo 03/08: nl LVSF; nl RV; mod LAE; mil MR/TR; RVSP 40-50; borderline ao root dilation; small peric effusion Assessment/Plan 87 yo with CAD/prior MO with prior CABG, h/o AAA repair, PAD s/p fem-pop x multiple, htn, hl, diastolic chf (not requiring diuretics), RBBB, abdominal adhesions, hernias, anemia, Prostate Cancer, colon cA s/p resection, copd/ small airway obstruction (followed by Dr. Nassar - on inhalers), gerd, ckd ( bline cr 1.3-1.5 per office notes), GOUT, Artificial Urethral Sphincter, symptomatic carotid stenosis on dapt s/p Rt CEA today, post-op course complicated by asx bradycardia. bradycardia - known underlying conduction disease with underlying RBBB. - likely induced by increased vagal tone from surgery/anesthesia/propofol in setting of underlying conduction disease. - Would expect that HR should con't to trend up overnight. If no improvement, ongoing evaluation of CEA site. - TSH, lyte repletion prn. - R/o ischemia as etiology. CE's sent, con't skylar. CAD/hl - con't anti-platelets, statin. Holding coreg as mentioned. No anginal sx's. - thrombocytopenia is mild and improved in comparison to 06/2016. s/p rt CEA PAD/hx of AAA repair, - post-op care and mgm't of vascular disease per surgery - con't statin, Dapt per vascular surgery htn - controlled off coreg diastolic chf - remains euvolemic off diuretics.
--- NOTE | 2017-04-24 21:06 | CONSULT ---
Consult Consult Specialty:: PULM/CCM Referred by:: Dr. Gandhi Reason for Consultation:: Bradycardia - History of Present Illness Chief Complaint: POD# ZERO s/p R CEA History of Present Illness: Mr. 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 Carotid Duplex showed b/l carotid stenosis, (R: >80%, L: 60-80%). Pt is now now POD# Zero s/p R CEA admitted to the ICU O/N for close watch observation in the setting of asymptomatic bradycardia. Pt seen & examined in the ICU. Pt is extubated CA+OX3, mild complaints of pain @ incision site relieved w/ Tylenol. Notice HR in the 40's, however, hemodynamically stable, no c/o SOB, CP, or dizzy. Of note, pt endorses that he took his home coreg dose this AM. 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) Rheumatology: Yes: Gout - Past Surgical History Past Surgical History: Yes: AAA Repair, Bypass (LE), CABG (3v) - Alcohol/Substance Use Hx Alcohol Use: No History of Substance Use: reports: None - Smoking History Smoking history: Former smoker Have you smoked in the past 12 months: No Aproximately how many cigarettes per day: 80 If you are a former smoker, when did you quit?: 1979 - Social History Usual Living Arrangement: Alone ADL: Independent History of Recent Travel: No Home Medications - Allergies Allergies/Adverse Reactions: Allergies Allergy/AdvReac Type Severity Reaction Status Date / Time beeswax Allergy Severe Verified 04/20/17 15:20 cephalexin monohydrate Allergy Severe Verified 04/20/17 15:20 [From Keflex] honey Allergy Severe Verified 04/20/17 15:20 Penicillins Allergy Severe Rash Verified 04/20/17 15:20 tetracycline [Tetracycline] Allergy Severe Rash Verified 04/20/17 15:20 Nitrofuran Analogues Allergy Verified 04/20/17 15:20 ondansetron HCl AdvReac Unknown Hives Verified 04/20/17 15:20 [From Zofran (as hydrochloride)] hydromorphone HCl AdvReac Verified 04/20/17 15:20 [From Dilaudid] papertape Allergy Uncoded 04/20/17 15:20 - Home Medications Home Medications: Ambulatory Orders Pantoprazole Sodium [Protonix -] 40 mg PO DAILY #0 tablet.ec 11/03/12 Carvedilol [Coreg] 12.5 mg PO DAILY 08/26/14 Cetirizine HCl [Zyrtec -] 10 mg PO DAILY 08/26/14 Fesoterodine Fumarate [Toviaz] 8 mg PO DAILY 08/26/14 Cranberry Fruit Extract [Theracran Hp For Kids] 36 mg PO DAILY 03/17/16 Aspirin [ASA -] 81 mg PO DAILY 07/05/16 Febuxostat [Uloric -] 40 mg PO DAILY 07/19/16 Albuterol Sulfate [Proventil HFA Inhaler -] 1 - 2 inh PO TID PRN 08/10/16 Propylene Glycol/Peg 400/Pf [Systane 0.3-0.4% Eye Drops] 2 each OP BID 08/10/16 Tiotropium [place] [Spiriva] 1 inh IH DAILY 08/10/16 Budesonide/Formeterol Fumarate [SYMBICORT 80/4.5mcg -] 2 puff IH BID 08/15/16 Atorvastatin Ca [Lipitor] 40 mg PO DAILY 04/05/17 Clopidogrel Bisulfate [Plavix] 75 mg PO DAILY 04/05/17 Cyclosporine [Restasis] 1 each OP BID 04/24/17 Family Disease History - Family Disease History Family History: Denies Review of Systems - Review of Systems Constitutional: reports: No Symptoms Eyes: reports: No Symptoms HENT: reports: No Symptoms Neck: reports: Other (Mild Pain @ incision site (POD# ZERO s/p R CEA)) Cardiovascular: reports: No Symptoms Respiratory: reports: No Symptoms Gastrointestinal: reports: No Symptoms Genitourinary: reports: No Symptoms Breasts: reports: No Symptoms Reported Musculoskeletal: reports: No Symptoms Integumentary: reports: No Symptoms Neurological: reports: No Symptoms Endocrine: reports: No Symptoms Hematology/Lymphatic: reports: No Symptoms Psychiatric: reports: No Symptoms Pain Intensity: 2 Physical Exam Vital Signs: Vital Signs Temperature 98.1 F 04/24/17 19:30 Pulse Rate 48 L 04/24/17 20:00 Respiratory Rate 20 04/24/17 20:00 Blood Pressure 106/43 04/24/17 20:00 O2 Sat by Pulse Oximetry (%) 100 04/24/17 20:59 Constitutional: Yes: Well Nourished, No Distress, Calm Eyes: Yes: WNL, Conjunctiva Clear, EOM Intact HENT: Yes: WNL, Atraumatic, Normocephalic Neck: Yes: WNL, Supple, Trachea Midline Cardiovascular: Yes: Regular Rate and Rhythm, Bradycardia Respiratory: Yes: WNL, Regular, CTA Bilaterally Gastrointestinal: Yes: Hypoactive Bowel Sounds ...Rectal Exam: Yes: Deferred Renal/: Yes: WNL Breast(s): Yes: WNL Musculoskeletal: Yes: WNL Extremities: Yes: WNL Edema: No Peripheral Pulses WNL: Yes Integumentary: Yes: WNL Wound/Incision: Yes: Clean/Dry, Well Approximated Neurological: Yes: WNL, Alert, Oriented ...Motor Strength: WNL Psychiatric: Yes: WNL, Alert, Oriented Labs: CBC, BMP 04/24/17 17:00 04/24/17 17:00 Imaging - Results X-ray: Image Reviewed (CXR 04/24: NONE) Ultrasound: Report Reviewed (TTE 03/08: Nml LVSF; Nml RV; mod LAE; mild MR/TR; RVSP 40-50; borderline AO root dilation; small pericardial effusion.) EKG: Image Reviewed (12-Lead 04/24: Alexandra in the 40's, no ectopy, 1st degree AVB, RBBB, QTc = 449ms.) Other: Report Reviewed (MPI 09/2015 (joe): No ischemic ST-T changes. No evidence of ischemia. (Diaphragm attenuation artifact present.) Normal LVEF. Normal LV cavity size with no transient dilation.) Problem List - Problems (1) Carotid stenosis, symptomatic w/o infarct Code(s): I65.29 - OCCLUSION AND STENOSIS OF UNSPECIFIED CAROTID ARTERY Qualifiers: Laterality: right Qualified Code(s): I65.21 - Occlusion and stenosis of right carotid artery (2) CAD (coronary artery disease) Code(s): I25.10 - ATHSCL HEART DISEASE OF [place] CORONARY ARTERY W/O ANG PCTRS (3) COPD (chronic obstructive pulmonary disease) Code(s): J44.9 - CHRONIC OBSTRUCTIVE PULMONARY DISEASE, UNSPECIFIED (4) PAD (peripheral artery disease) Code(s): I73.9 - PERIPHERAL VASCULAR DISEASE, UNSPECIFIED Assessment/Plan ASSESS: This is an 87 y/o man, vasculopath w/ CAD, CABG, AAA repair, PAD s/p fem -pop x multiple, abd adhesions, hernias, colectomy, Prostate CA, GOUT, Artificial Urethral Sphincter, COPD, & severe b/l carotid stenosis, (R: >80%, L : 60-80%) w/ recent TIA, now POD# Zero s/p R CEA admitted to the ICU O/N for post-op observation & asymptomatic alexandra-cardia m/l 2/2 increased vagal tone in the setting of surgery/anesthesia. PLAN: -Supp FiO2 prn for an SpO2 > 92% -Nebs -Symbicort -Spiriva -IS -Pain control -Start ASA & Plavix -Ongoing eval of CEA site. -Post-Op labs including: Trop, CK, CK-MB, & BNP -R-sided EKG -Trend EKGs -Hold Coreg for now -Cont Statin -Tele -Atro/Dopa prn for symptomatic alexandra -TTE -CARDS -Ok for clears -I's & O's -Cont uloric -Cont home Eye gtts -BR -SCDs -PPI -Transfer to Tele Thank you for this interesting consult. JENNY, ACNP-BC [facility] ICU PULM/CCM [id number]
[2017-04-24] MEDS ORDERED: ACETAMINOPHEN 1000 MG/100 ML VIAL (NON FORMULARY) IVPB PRN (21:08)
[2017-04-24] MEDS ORDERED: PT OWN MED DRAWER 7, Y5N ONE (21:25)
[2017-04-24] MEDS: CLOPIDOGREL BISULFATE 75 MG TABLET (FP) PO SCH (21:40)
[2017-04-24] MEDS: ASPIRIN 81 MG CHEWABLE TABLETS PO SCH (21:40)
[2017-04-24] MEDS: MUPIROCIN 2% TOPICAL OINTMENT FOR DECOLONIZATION NS SCH (21:41)
[2017-04-24] MEDS: HEPARIN NA (PORCINE) 5,000 UNITS/ML 1ML VIAL SQ SCH (21:42)
[2017-04-24] MEDS ORDERED: PATIENT'S OWN MEDICATION (NON-FORMULARY) (Cyclosporine [Restasis] 1 EACH) OP SCH (22:00)
[2017-04-24] MEDS ORDERED: CHLORHEXIDINE GLUCONATE 4% CLEANSER FOR DECOLONIZATION TP SCH (22:00)
[2017-04-24] MEDS ORDERED: PATIENT'S OWN MEDICATION (NON-FORMULARY) (Propylene Glycol/Peg 400/Pf [Systane 0.3-0.4% Ey OP SCH (22:00)
[2017-04-24] MEDS: BUDESONIDE/FORMETEROL FUMARATE 80/4.5 mcg INHALER IH SCH (22:09)
[2017-04-25] MEDS: HEPARIN NA (PORCINE) 5,000 UNITS/ML 1ML VIAL SQ SCH ×2 (05:41→18:27)
[2017-04-25 05:55] LABS: BASO % 0.2 % (0-2.0); EOS % 0.2 % (0-4.5); HEMATOCRIT 29.1 % (35.4-49); HEMOGLOBIN 9.8 GM/dL (11.7-16.9); MCH 28.9 pg (25.7-33.7); MCHC 33.6 g/dl (32.0-35.9); MEAN CELL VOLUME 86.1 fl (80-96); MEAN PLT VOLUME 8.7 fl (7.5-11.1); MONO % 6.5 % (3.8-10.2); NEUT % 86.1 % (42.8-82.8); PLATELET COUNT 130 K/MM3 (134-434); RBC 3.38 M/mm3 (4.00-5.60); RDW 16.4 % (11.9-15.9); WHITE BLOOD COUNT 7.3 K/mm3 (4.0-10.0)
[2017-04-25 06:47] LABS: ALBUMIN 2.6 g/dl (3.4-5.0); ALK PHOS 72 U/L (45-117); ANION GAP 7 (8-16); BILIRUBIN,TOTAL 0.4 mg/dL (0.2-1.0); BLOOD UREA NITROGEN 29 mg/dL (7-18); CALCIUM 7.7 mg/dL (8.5-10.1); CHLORIDE 109 mmol/L (98-107); CO2 24 mmol/L (21-32); CREATININE 1.2 mg/dL (0.7-1.3); GLUCOSE,RANDOM 141 mg/dL (74-106); POTASSIUM 3.9 mmol/L (3.5-5.1); SGOT/AST 8 U/L (15-37); SGPT/ALT 14 U/L (12-78); SODIUM 140 mmol/L (136-145); TOT PROT 5.6 g/dl (6.4-8.2)
--- NOTE | 2017-04-25 08:23 | PN ---
Progress Note (short form) - Note Progress Note: POD 1 HR 40-50, BP 126/65 Neck wound dry, no swelling Neuro stable, no focal findings Labs reviewed Imp: Bradycardia following carotid surgery, no hypotension Plan: D/C IV, A-line hold Coreg OK for discharge if able to ambulate without a problem. Problem List - Problems (1) Carotid stenosis, symptomatic w/o infarct Code(s): I65.29 - OCCLUSION AND STENOSIS OF UNSPECIFIED CAROTID ARTERY Qualifiers: Laterality: right Qualified Code(s): I65.21 - Occlusion and stenosis of right carotid artery
[2017-04-25] MEDS ORDERED: ATORVASTATIN CA 40 MG TABLET (FP) PO SCH (10:00)
[2017-04-25] MEDS ORDERED: TIOTROPIUM BROMIDE 18 MCG/INH (DEVICE W/ 5 CAPSULES) IH SCH (10:00)
[2017-04-25] MEDS ORDERED: PATIENT'S OWN MEDICATION (NON-FORMULARY) (Fesoterodine Fumarate [Toviaz] 8 MG) PO SCH (10:00)
[2017-04-25] MEDS ORDERED: PANTOPRAZOLE 40 MG TABLET (FP) PO SCH (10:00)
[2017-04-25] MEDS ORDERED: CARVEDILOL 12.5 MG TABLET (FP) PO SCH (10:00)
[2017-04-25] MEDS ORDERED: PATIENT'S OWN MEDICATION (NON-FORMULARY) (Cetirizine Hcl 10 MG) PO SCH (10:00)
[2017-04-25] MEDS ORDERED: LORATADINE 10 MG TABLET PO SCH (10:00)
[2017-04-25] MEDS ORDERED: FEBUXOSTAT 40 MG TAB PO SCH (10:00)
[2017-04-25] MEDS ORDERED: PT OWN MED DRAWER 7, Y5N ONE (10:49)
[2017-04-25] MEDS: ASPIRIN 81 MG CHEWABLE TABLETS PO SCH (10:50)
[2017-04-25] MEDS: CLOPIDOGREL BISULFATE 75 MG TABLET (FP) PO SCH (10:51)
[2017-04-25] MEDS: BUDESONIDE/FORMETEROL FUMARATE 80/4.5 mcg INHALER IH SCH (10:52)
[2017-04-25] MEDS: MUPIROCIN 2% TOPICAL OINTMENT FOR DECOLONIZATION NS SCH (10:53)
--- NOTE | 2017-04-25 11:03 | PN ---
Progress Note (short form) - Note Progress Note: CC: bradycardia S: no events overnight. ambulated today without dizziness, sx's or limitations. + uop through suprapubic catheter. no cp, palps, dizziness, sob. Current Medications Acetaminophen (Ofirmev Injection -) 1,000 mg IVPB Q6H PRN PRN Reason: MODERATE PAIN Last Admin: 04/24/17 23:06 Dose: 1,000 mg Albuterol Sulfate (Ventolin Hfa Inhaler -) 1 puff IH Q8H PRN PRN Reason: ASTHMA Albuterol Sulfate (Ventolin Hfa Inhaler -) 2 puff IH Q8H PRN PRN Reason: ASTHMA Aspirin (Asa -) 81 mg PO DAILY [facility] Last Admin: 04/25/17 10:50 Dose: 81 mg Atorvastatin Calcium (Lipitor -) 40 mg PO DAILY [facility] Last Admin: 04/25/17 10:51 Dose: 40 mg Budesonide/Formoterol Fumarate (Symbicort 80/4.5mcg -) 2 puff IH BID [facility] Last Admin: 04/25/17 10:52 Dose: 2 puff Chlorhexidine Gluconate (Hibiclens For Decolonization -) 1 applic TP HS [facility] Last Admin: 04/24/17 21:42 Dose: 1 applic Clopidogrel Bisulfate (Plavix -) 75 mg PO DAILY [facility] Last Admin: 04/25/17 10:51 Dose: 75 mg Febuxostat (Uloric -) 40 mg PO DAILY [facility] Last Admin: 04/25/17 10:52 Dose: 40 mg Heparin Sodium (Porcine) (Heparin -) 5,000 unit SQ TID [facility] Last Admin: 04/25/17 05:41 Dose: 5,000 unit Loratadine (Claritin -) 10 mg PO DAILY [facility] Last Admin: 04/25/17 10:51 Dose: 10 mg Mupirocin (Bactroban Ointment (For Decolonization) -) 1 applic NS BID [facility] Stop: 04/29/17 21:59 Last Admin: 04/25/17 10:53 Dose: 1 applic Non-Formulary Medication (Cyclosporine [Restasis]) 1 each OP BID [facility] Non-Formulary Medication (Fesoterodine Fumarate [Toviaz]) 8 mg PO DAILY [facility] Non-Formulary Medication (Propylene Glycol/Peg 400/Pf [Systane 0.3-0.4% Eye Drops]) 2 each OP BID [facility] Ondansetron HCl (Zofran Injection) 4 mg IVPUSH Q6H PRN PRN Reason: NAUSEA AND/OR VOMITING Oxycodone HCl (Roxicodone -) 5 mg PO Q6H PRN PRN Reason: PAIN LEVEL 1-5 Oxycodone HCl (Roxicodone -) 10 mg PO Q6H PRN PRN Reason: PAIN LEVEL 6-10 Pantoprazole Sodium (Protonix -) 40 mg PO DAILY [facility] Last Admin: 04/25/17 10:51 Dose: 40 mg Promethazine HCl (Phenergan Injection -) 12.5 mg IVPUSH Q6H PRN PRN Reason: NAUSEA-FOR RESCUE AFTER 15 MIN Tiotropium [place] (Spiriva -) 1 puff IH DAILY [facility] Vital Signs - 24 hr 04/24/17 04/24/17 04/24/17 13:31 13:45 14:00 Temperature 98.4 F Pulse Rate 55 L 48 L 45 L Respiratory 12 14 12 Rate Blood Pressure 131/52 118/46 115/44 O2 Sat by Pulse 100 100 100 Oximetry (%) 04/24/17 04/24/17 04/24/17 14:15 14:30 14:45 Temperature Pulse Rate 44 L 43 L 43 L Respiratory 12 12 14 Rate Blood Pressure 111/40 107/41 109/42 O2 Sat by Pulse 96 100 97 Oximetry (%) 04/24/17 04/24/17 04/24/17 15:00 15:15 15:30 Temperature 98.0 F 97.6 F Pulse Rate 43 L 43 L 43 L Respiratory 16 20 20 Rate Blood Pressure 114/42 114/80 110/50 O2 Sat by Pulse 99 Oximetry (%) 04/24/17 04/24/17 04/24/17 16:02 17:04 19:30 Temperature 98.1 F Pulse Rate 49 L 47 L 48 L Respiratory 18 22 18 Rate Blood Pressure 127/46 116/46 106/43 O2 Sat by Pulse 100 Oximetry (%) 04/24/17 04/24/17 04/24/17 20:00 20:59 22:00 Temperature 97.5 F L Pulse Rate 48 L 45 L Respiratory 20 18 Rate Blood Pressure 106/43 120/49 O2 Sat by Pulse 100 Oximetry (%) 04/25/17 04/25/17 04/25/17 00:10 02:00 04:00 Temperature 97.8 F Pulse Rate 45 L 44 L 44 L Respiratory 20 20 18 Rate Blood Pressure 122/45 108/44 123/52 O2 Sat by Pulse Oximetry (%) 04/25/17 04/25/17 04/25/17 08:00 09:00 10:00 Temperature 98.1 F Pulse Rate 48 L 53 L Respiratory 20 19 Rate Blood Pressure 126/65 96/59 O2 Sat by Pulse 100 100 Oximetry (%) Intake & Output 04/23/17 04/24/17 04/25/17 04/26/17 07:59 07:59 07:59 07:59 Intake Total 2375 Output Total 435 Balance 1940 Weight 167 lb 12.348 oz Constitutional: Yes: Well Nourished, No Distress Eyes: No: Sclera Icterus HENT: No: Nasal Congestion Neck: No: Decreased ROM Respiratory: Yes: trace ra;es. No: Accessory Muscle Use Gastrointestinal: Yes: Normal Bowel Sounds. No: Distention, Hepatomegaly, Palpable Mass, Tenderness Cardiovascular: Yes: Regular Rate and Rhythm JVD: tds b/c of dressing but does not appear elevated. Carotid Bruit: No PMI: Non-Displaced Heart Sounds: Yes: S1, S2. No: Gallop Murmur: No: Systolic Murmur, Diastolic Murmur Musculoskeletal: Yes: Other (No kyphosis) Extremities: No: Cold, Cyanosis Edema: No Peripheral Pulses: diminished dp/pt Integumentary: No: Jaundice Neurological: Yes: Alert, Oriented (x3) Psychiatric: No: Agitated - Other Data Labs, Other Data: CBC, BMP 04/25/17 05:18 04/25/17 05:18 Laboratory Tests 04/24/17 04/25/17 04/25/17 17:00 05:18 05:18 Total Bilirubin 0.4 AST 8 L D ALT 14 Alkaline Phosphatase 72 Creatine Kinase 79 Troponin I < 0.02 < 0.02 Albumin 2.6 L D TSH 0.60 D ekg: SB. av delay 312 ms, RBBB, qtc wnl. non-specific lateral t wave abnormalities. tele: SB. HR trend slowly rising from 40's to juan carlos 50's/low 60's. MPI 09/2015 (joe): No ischemic ST-T changes. No evidence of ischemia. ( Diaphragm attenuation artifact present.) Normal LVEF. Normal LV cavity size with no transient dilation. Echo 02/2017: tds nl lv size/fn. unalbe to assess rv size. nl rv fn. 1+ kemar. 1 + mac. Increased MA end-diastolic velocity. No rvsp. bline/mild ao dilation. small chronic effusion vs. fat pad. Echo 03/08: nl LVSF; nl RV; mod LAE; mil MR/TR; RVSP 40-50; borderline ao root dilation; small peric effusion Assessment/Plan 87 yo with CAD/prior CA with prior CABG, h/o AAA repair, PAD s/p fem-pop x multiple, htn, hl, diastolic chf (not requiring diuretics), RBBB, abdominal adhesions, hernias, anemia, Prostate Cancer, colon cA s/p resection, copd/ small airway obstruction (followed by Dr. Nassar - on inhalers), gerd, ckd ( bline cr 1.3-1.5 per office notes), GOUT, Artificial Urethral Sphincter, symptomatic carotid stenosis on dapt s/p Rt CEA today, post-op course complicated by asx bradycardia. bradycardia/rbbb - underlying RBBB. - Bradycardia was sinus and asx. Likely induced by increased vagal tone in setting of surgery/anesthesia/propofol in setting of underlying conductino disease. - Surgery monitoring CEA site --> healing well, no concern for hematoma or fluid collection. . - CE's neg x 2. EKG without acute ischemic changes. TSH wnl. - 04/25: HR slowly trending up. No pathologic features thus far. con't to hold coreg. Repeat EKG this am and if no new ischemic changes or conduction abnormalities and bp/hr remain stable --> safe to d/c with outpatient follow up with Dr. Sharp for further medication adjustment. Plan to resume coreg cr as outpatient at slightly lower dose (10 mg) once HR at home is > 65 bpm. CAD/hl - con't anti-platelets, statin. Holding coreg as mentioned. No anginal sx's. - thrombocytopenia is mild and improved in comparison to 06/2016. s/p rt CEA PAD/hx of AAA repair, - post-op care and mgm't of vascular disease per surgery - con't statin, Dapt per vascular surgery htn - controlled off coreg diastolic chf - remains euvolemic off diuretics.
--- NOTE | 2017-04-25 12:35 | PN ---
Teaching Attending Note Name of Resident: Sea Quinonez ATTENDING PHYSICIAN STATEMENT I saw and evaluated the patient. I reviewed the resident's note and discussed the case with the resident. I agree with the resident's findings and plan as documented. SUBJECTIVE: Feels well. No CP or SOB. Noted bradycardia. Asymptomatic. Intake & Output 04/22/17 04/23/17 04/24/17 04/25/17 23:59 23:59 23:59 23:59 Intake Total 1475 1300 Output Total 425 610 Balance 1050 690 Weight 167 lb 12.348 oz Last Vital Signs Temp Pulse Resp BP Pulse Ox 98.1 F 56 L 16 105/50 100 04/25/17 10:00 04/25/17 11:56 04/25/17 11:56 04/25/17 11:56 04/25/17 09:00 Active Medications Acetaminophen (Ofirmev Injection -) 1,000 mg IVPB Q6H PRN PRN Reason: MODERATE PAIN Last Admin: 04/24/17 23:06 Dose: 1,000 mg Albuterol Sulfate (Ventolin Hfa Inhaler -) 1 puff IH Q8H PRN PRN Reason: ASTHMA Albuterol Sulfate (Ventolin Hfa Inhaler -) 2 puff IH Q8H PRN PRN Reason: ASTHMA Aspirin (Asa -) 81 mg PO DAILY [facility] Last Admin: 04/25/17 10:50 Dose: 81 mg Atorvastatin Calcium (Lipitor -) 40 mg PO DAILY [facility] Last Admin: 04/25/17 10:51 Dose: 40 mg Budesonide/Formoterol Fumarate (Symbicort 80/4.5mcg -) 2 puff IH BID [facility] Last Admin: 04/25/17 10:52 Dose: 2 puff Chlorhexidine Gluconate (Hibiclens For Decolonization -) 1 applic TP HS [facility] Last Admin: 04/24/17 21:42 Dose: 1 applic Clopidogrel Bisulfate (Plavix -) 75 mg PO DAILY [facility] Last Admin: 04/25/17 10:51 Dose: 75 mg Febuxostat (Uloric -) 40 mg PO DAILY [facility] Last Admin: 04/25/17 10:52 Dose: 40 mg Heparin Sodium (Porcine) (Heparin -) 5,000 unit SQ TID [facility] Last Admin: 04/25/17 05:41 Dose: 5,000 unit Loratadine (Claritin -) 10 mg PO DAILY [facility] Last Admin: 04/25/17 10:51 Dose: 10 mg Mupirocin (Bactroban Ointment (For Decolonization) -) 1 applic NS BID [facility] Stop: 04/29/17 21:59 Last Admin: 04/25/17 10:53 Dose: 1 applic Non-Formulary Medication (Cyclosporine [Restasis]) 1 each OP BID [facility] Non-Formulary Medication (Fesoterodine Fumarate [Toviaz]) 8 mg PO DAILY [facility] Non-Formulary Medication (Propylene Glycol/Peg 400/Pf [Systane 0.3-0.4% Eye Drops]) 2 each OP BID [facility] Ondansetron HCl (Zofran Injection) 4 mg IVPUSH Q6H PRN PRN Reason: NAUSEA AND/OR VOMITING Oxycodone HCl (Roxicodone -) 5 mg PO Q6H PRN PRN Reason: PAIN LEVEL 1-5 Oxycodone HCl (Roxicodone -) 10 mg PO Q6H PRN PRN Reason: PAIN LEVEL 6-10 Pantoprazole Sodium (Protonix -) 40 mg PO DAILY [facility] Last Admin: 04/25/17 10:51 Dose: 40 mg Promethazine HCl (Phenergan Injection -) 12.5 mg IVPUSH Q6H PRN PRN Reason: NAUSEA-FOR RESCUE AFTER 15 MIN Tiotropium [place] (Spiriva -) 1 puff IH DAILY [facility] Constitutional: Yes: Well Nourished, No Distress, Calm Eyes: Yes: WNL, Conjunctiva Clear, EOM Intact HENT: Yes: WNL, Atraumatic, Normocephalic Neck: Yes: WNL, Supple, Trachea Midline Cardiovascular: Yes: Regular Rate and Rhythm, Bradycardia Respiratory: Yes: WNL, Regular, CTA Bilaterally Gastrointestinal: Yes: Hypoactive Bowel Sounds ...Rectal Exam: Yes: Deferred Renal/: Yes: WNL Breast(s): Yes: WNL Musculoskeletal: Yes: WNL Extremities: Yes: WNL Edema: No Peripheral Pulses WNL: Yes Integumentary: Yes: WNL Wound/Incision: Yes: Clean/Dry, Well Approximated Neurological: Yes: WNL, Alert, Oriented ...Motor Strength: WNL Psychiatric: Yes: WNL, Alert, Oriented Labs: Laboratory Results - last 24 hr 04/24/17 04/24/17 04/24/17 17:00 17:00 17:00 WBC 6.4 D RBC 3.58 L D Hgb 10.3 L D Hct 31.1 L D MCV 86.9 MCH 28.8 MCHC 33.1 RDW 17.0 H Plt Count 133 L D MPV 7.7 Neutrophils % 87.7 H D Lymphocytes % 7.6 L D Monocytes % 2.9 L D Eosinophils % 1.3 D Basophils % 0.5 Sodium 140 Potassium 4.1 Chloride 108 H Carbon Dioxide 24 Anion Gap 8 BUN 32 H Creatinine 1.4 H Creat Clearance w eGFR Random Glucose 134 H D Calcium 7.8 L Phosphorus 4.1 D Magnesium 2.0 Total Bilirubin AST ALT Alkaline Phosphatase Creatine Kinase Troponin I < 0.02 Total Protein Albumin TSH 04/25/17 04/25/17 04/25/17 05:18 05:18 05:18 WBC 7.3 RBC 3.38 L Hgb 9.8 L Hct 29.1 L MCV 86.1 MCH 28.9 MCHC 33.6 RDW 16.4 H Plt Count 130 L MPV 8.7 D Neutrophils % 86.1 H Lymphocytes % 7.0 L Monocytes % 6.5 D Eosinophils % 0.2 D Basophils % 0.2 Sodium 140 Potassium 3.9 Chloride 109 H Carbon Dioxide 24 Anion Gap 7 L BUN 29 H Creatinine 1.2 Creat Clearance w eGFR 57.01 Random Glucose 141 H Calcium 7.7 L Phosphorus Magnesium Total Bilirubin 0.4 AST 8 L D ALT 14 Alkaline Phosphatase 72 Creatine Kinase 79 Troponin I < 0.02 Total Protein 5.6 L Albumin 2.6 L D TSH 0.60 D 04/25/17 05:18 WBC RBC Hgb Hct MCV MCH MCHC RDW Plt Count MPV Neutrophils % Lymphocytes % Monocytes % Eosinophils % Basophils % Sodium Potassium Chloride Carbon Dioxide Anion Gap BUN Creatinine Creat Clearance w eGFR Random Glucose Calcium Phosphorus Magnesium Total Bilirubin AST ALT Alkaline Phosphatase Creatine Kinase Troponin I Total Protein Albumin TSH Cancelled Problem List - Problems (1) Carotid stenosis, symptomatic w/o infarct Code(s): I65.29 - OCCLUSION AND STENOSIS OF UNSPECIFIED CAROTID ARTERY Qualifiers: Laterality: right Qualified Code(s): I65.21 - Occlusion and stenosis of right carotid artery (2) CAD (coronary artery disease) Code(s): I25.10 - ATHSCL HEART DISEASE OF [place] CORONARY ARTERY W/O ANG PCTRS (3) COPD (chronic obstructive pulmonary disease) Code(s): J44.9 - CHRONIC OBSTRUCTIVE PULMONARY DISEASE, UNSPECIFIED (4) PAD (peripheral artery disease) Code(s): I73.9 - PERIPHERAL VASCULAR DISEASE, UNSPECIFIED Assessment/Plan ASSESS: This is an 87 y/o man, vasculopath w/ CAD, CABG, AAA repair, PAD s/p fem -pop x multiple, abd adhesions, hernias, colectomy, Prostate CA, GOUT, Artificial Urethral Sphincter, COPD, & severe b/l carotid stenosis, (R: >80%, L : 60-80%) w/ recent TIA, now POD# Zero s/p R CEA admitted to the ICU O/N for post-op observation & asymptomatic alexandra-cardia m/l 2/2 increased vagal tone in the setting of surgery/anesthesia. PLAN: O2 as needed BD [place] Cardiology follow up noted. No smoking Symbicort Spiriva D/C planning Dr Benton
--- NOTE | 2017-04-25 13:17 | PN ---
Progress Note (short form) - Note Progress Note: POD #1 - s/p right carotid endarterectomy under general anesthesia. VSS. Pt. doing well, sitting up comfortably in chair. No complaints. No apparent anesthetic complications noted. Continue current care.
--- NOTE | 2017-04-25 13:53 | PN ---
Physical Exam: SUBJECTIVE: Patient seen and examined OBJECTIVE: Vital Signs Period Temp Pulse Resp BP Sys/Child Pulse Ox Last 24 Hr 97.5 F-98.1 F 43-56 12-22 96-127/40-80 96-100 GENERAL: The patient is awake, alert, and fully oriented, in no acute distress. HEAD: Normal with no signs of trauma. EYES: PERRL, extraocular movements intact, sclera anicteric, conjunctiva clear. No ptosis. ENT: Ears normal, nares patent, oropharynx clear without exudates, moist mucous membranes. NECK: Trachea midline, full range of motion, supple. LUNGS: Breath sounds equal, clear to auscultation bilaterally, no wheezes, no crackles, no accessory muscle use. HEART: Regular rate and rhythm, S1, S2 without murmur, rub or gallop. ABDOMEN: Soft, nontender, nondistended, normoactive bowel sounds, no guarding, no rebound, no hepatosplenomegaly, no masses. EXTREMITIES: 2+ pulses, warm, well-perfused, no edema. NEUROLOGICAL: Cranial nerves II through XII grossly intact. Normal speech, gait not observed. PSYCH: Normal mood, normal affect. SKIN: Warm, dry, normal turgor, no rashes or lesions noted Laboratory Results - last 24 hr 04/24/17 04/24/17 04/24/17 17:00 17:00 17:00 WBC 6.4 D RBC 3.58 L D Hgb 10.3 L D Hct 31.1 L D MCV 86.9 MCH 28.8 MCHC 33.1 RDW 17.0 H Plt Count 133 L D MPV 7.7 Neutrophils % 87.7 H D Lymphocytes % 7.6 L D Monocytes % 2.9 L D Eosinophils % 1.3 D Basophils % 0.5 Sodium 140 Potassium 4.1 Chloride 108 H Carbon Dioxide 24 Anion Gap 8 BUN 32 H Creatinine 1.4 H Creat Clearance w eGFR Random Glucose 134 H D Calcium 7.8 L Phosphorus 4.1 D Magnesium 2.0 Total Bilirubin AST ALT Alkaline Phosphatase Creatine Kinase Troponin I < 0.02 Total Protein Albumin TSH 04/25/17 04/25/17 04/25/17 05:18 05:18 05:18 WBC 7.3 RBC 3.38 L Hgb 9.8 L Hct 29.1 L MCV 86.1 MCH 28.9 MCHC 33.6 RDW 16.4 H Plt Count 130 L MPV 8.7 D Neutrophils % 86.1 H Lymphocytes % 7.0 L Monocytes % 6.5 D Eosinophils % 0.2 D Basophils % 0.2 Sodium 140 Potassium 3.9 Chloride 109 H Carbon Dioxide 24 Anion Gap 7 L BUN 29 H Creatinine 1.2 Creat Clearance w eGFR 57.01 Random Glucose 141 H Calcium 7.7 L Phosphorus Magnesium Total Bilirubin 0.4 AST 8 L D ALT 14 Alkaline Phosphatase 72 Creatine Kinase 79 Troponin I < 0.02 Total Protein 5.6 L Albumin 2.6 L D TSH 0.60 D 04/25/17 05:18 WBC RBC Hgb Hct MCV MCH MCHC RDW Plt Count MPV Neutrophils % Lymphocytes % Monocytes % Eosinophils % Basophils % Sodium Potassium Chloride Carbon Dioxide Anion Gap BUN Creatinine Creat Clearance w eGFR Random Glucose Calcium Phosphorus Magnesium Total Bilirubin AST ALT Alkaline Phosphatase Creatine Kinase Troponin I Total Protein Albumin TSH Cancelled Active Medications Generic Name Dose Route Start Last Admin Trade Name Freq PRN Reason Stop Dose Admin Acetaminophen 1,000 mg 04/24/17 21:08 04/24/17 23:06 Ofirmev Injection - IVPB 1,000 mg Q6H PRN Administration MODERATE PAIN Albuterol Sulfate 1 puff 04/24/17 13:29 Ventolin Hfa Inhaler - IH Q8H PRN ASTHMA Albuterol Sulfate 2 puff 04/24/17 15:51 Ventolin Hfa Inhaler - IH Q8H PRN ASTHMA Aspirin 81 mg 04/24/17 22:00 04/25/17 10:50 Asa - PO 81 mg DAILY [facility] Administration Atorvastatin Calcium 40 mg 04/25/17 10:00 04/25/17 10:51 Lipitor - PO 40 mg DAILY [facility] Administration Budesonide/Formoterol Fumarate 2 puff 04/24/17 22:00 04/25/17 10:52 Symbicort 80/4.5mcg - IH 2 puff BID [facility] Administration Chlorhexidine Gluconate 1 applic 04/24/17 22:00 04/24/17 21:42 Hibiclens For Decolonization - TP 1 applic HS [facility] Administration Clopidogrel Bisulfate 75 mg 04/24/17 22:00 04/25/17 10:51 Plavix - PO 75 mg DAILY [facility] Administration Febuxostat 40 mg 04/25/17 10:00 04/25/17 10:52 Uloric - PO 40 mg DAILY [facility] Administration Heparin Sodium (Porcine) 5,000 unit 04/24/17 22:00 04/25/17 05:41 Heparin - SQ 5,000 unit TID [facility] Administration Loratadine 10 mg 04/25/17 10:00 04/25/17 10:51 Claritin - PO 10 mg DAILY [facility] Administration Mupirocin 1 applic 04/24/17 22:00 04/25/17 10:53 Bactroban Ointment (For Decolonization) - NS 04/29/17 21:59 1 applic BID [facility] Administration Non-Formulary Medication 1 each 04/24/17 22:00 Cyclosporine [Restasis] OP BID [facility] Non-Formulary Medication 8 mg 04/25/17 10:00 Fesoterodine Fumarate [Toviaz] PO DAILY [facility] Non-Formulary Medication 2 each 04/24/17 22:00 Propylene Glycol/Peg 400/Pf [Systane 0.3-0.4% Eye Drops] OP BID [facility] Ondansetron HCl 4 mg 04/24/17 14:02 Zofran Injection IVPUSH Q6H PRN NAUSEA AND/OR VOMITING Oxycodone HCl 5 mg 04/24/17 13:35 Roxicodone - PO Q6H PRN PAIN LEVEL 1-5 Oxycodone HCl 10 mg 04/24/17 13:38 Roxicodone - PO Q6H PRN PAIN LEVEL 6-10 Pantoprazole Sodium 40 mg 04/25/17 10:00 04/25/17 10:51 Protonix - PO 40 mg DAILY [facility] Administration Promethazine HCl 12.5 mg 04/24/17 14:02 Phenergan Injection - IVPUSH Q6H PRN NAUSEA-FOR RESCUE AFTER 15 MIN Tiotropium [place] 1 puff 04/25/17 10:00 04/25/17 13:07 Spiriva - IH 1 puff DAILY [facility] Administration ASSESSMENT/PLAN:
--- NOTE | 2017-04-25 14:12 | EKG ---
Test Reason : Blood Pressure : / mmHG Vent. Rate : 053 BPM Atrial Rate : 053 BPM P-R Int : 192 ms QRS Dur : 150 ms QT Int : 498 ms P-R-T Axes : 017 007 -12 degrees QTc Int : 467 ms SINUS BRADYCARDIA RIGHT BUNDLE BRANCH BLOCK T WAVE ABNORMALITY, CONSIDER INFEROLATERAL ISCHEMIA ABNORMAL ECG WHEN COMPARED WITH ECG OF 24-APR-2017 15:48, [place] INTERVAL HAS DECREASED QRS DURATION HAS INCREASED INVERTED T WAVES HAVE REPLACED NONSPECIFIC T WAVE ABNORMALITY IN INFERIOR LEADS T WAVE INVERSION MORE EVIDENT IN ANTERIOR LEADS Confirmed by MD Bart, Sameer ([id number]) on 04/25/2017 2:12:38 PM Referred By: Delmar Gandhi Confirmed By:Sameer Arriaga MD
--- NOTE | 2017-04-25 14:23 | EKG ---
Test Reason : Blood Pressure : / mmHG Vent. Rate : 040 BPM Atrial Rate : 040 BPM P-R Int : 312 ms QRS Dur : 116 ms QT Int : 552 ms P-R-T Axes : 031 -14 022 degrees QTc Int : 449 ms MARKED SINUS BRADYCARDIA WITH 1ST DEGREE A-V BLOCK RIGHT BUNDLE BRANCH BLOCK T WAVE ABNORMALITY, CONSIDER LATERAL ISCHEMIA ABNORMAL ECG WHEN COMPARED WITH ECG OF 19-JUL-2016 12:04, [place] INTERVAL HAS INCREASED VENT. RATE HAS DECREASED BY 49 BPM T WAVE INVERSION LESS EVIDENT IN ANTERIOR LEADS T WAVE INVERSION NOW EVIDENT IN LATERAL LEADS Confirmed by MD Bart, Sameer ([id number]) on 04/25/2017 2:23:16 PM Referred By: Delmar Gandhi Confirmed By:Sameer Arriaga MD
[2017-04-25 14:48] VITALS: TEMP 97.8
--- NOTE | 2017-04-25 15:53 | DS ---
Physical Exam: SUBJECTIVE: Patient seen and examined. POD #1 s/p Right CEA. OBJECTIVE: Vital Signs Temperature 97.8 F 04/25/17 14:47 Pulse Rate 56 L 04/25/17 14:00 Respiratory Rate 16 04/25/17 11:56 Blood Pressure 105/46 04/25/17 14:00 O2 Sat by Pulse Oximetry (%) 100 04/25/17 09:00 PHYSICAL EXAM GENERAL: alert. nad NECK: Right neck dressing c/d//i. No hematoma LUNGS: CTA bilat anteriorly HEART: RRR ABDOMEN: Soft, nt. nd. EXTREMITIES: 2+ pulses, warm, well-perfused, no edema. NEUROLOGICAL: Cranial nerves II through XII grossly intact. Normal speech, gait not observed. PSYCH: Normal mood, normal affect. SKIN: Warm, dry, normal turgor, no rashes or lesions noted. LABS CBC,CMP WBC 7.3 K/mm3 (4.0-10.0) 04/25/17 05:18 RBC 3.38 M/mm3 (4.00-5.60) L 04/25/17 05:18 Hgb 9.8 GM/dL (11.7-16.9) L 04/25/17 05:18 Hct 29.1 % (35.4-49) L 04/25/17 05:18 MCV 86.1 fl (80-96) 04/25/17 05:18 MCH 28.9 pg (25.7-33.7) 04/25/17 05:18 MCHC 33.6 g/dl (32.0-35.9) 04/25/17 05:18 RDW 16.4 % (11.9-15.9) H 04/25/17 05:18 Plt Count 130 K/MM3 (134-434) L 04/25/17 05:18 MPV 8.7 fl (7.5-11.1) D 04/25/17 05:18 Neutrophils % 86.1 % (42.8-82.8) H 04/25/17 05:18 Lymphocytes % 7.0 % (8-40) L 04/25/17 05:18 Monocytes % 6.5 % (3.8-10.2) D 04/25/17 05:18 Eosinophils % 0.2 % (0-4.5) D 04/25/17 05:18 Basophils % 0.2 % (0-2.0) 04/25/17 05:18 Sodium 140 mmol/L (136-145) 04/25/17 05:18 Potassium 3.9 mmol/L (3.5-5.1) 04/25/17 05:18 Chloride 109 mmol/L (98-107) H 04/25/17 05:18 Carbon Dioxide 24 mmol/L (21-32) 04/25/17 05:18 Anion Gap 7 (8-16) L 04/25/17 05:18 BUN 29 mg/dL (7-18) H 04/25/17 05:18 Creatinine 1.2 mg/dL (0.7-1.3) 04/25/17 05:18 Creat Clearance w eGFR 57.01 (>60) 04/25/17 05:18 Random Glucose 141 mg/dL (74-106) H 04/25/17 05:18 Calcium 7.7 mg/dL (8.5-10.1) L 04/25/17 05:18 Phosphorus 4.1 mg/dL (2.5-4.9) D 04/24/17 17:00 Magnesium 2.0 mg/dL (1.8-2.4) 04/24/17 17:00 Total Bilirubin 0.4 mg/dL (0.2-1.0) 04/25/17 05:18 AST 8 U/L (15-37) L D 04/25/17 05:18 ALT 14 U/L (12-78) 04/25/17 05:18 Alkaline Phosphatase 72 U/L (45-117) 04/25/17 05:18 Creatine Kinase 79 IU/L (39-308) 04/25/17 05:18 Troponin I < 0.02 ng/ml (0.00-0.05) 04/25/17 05:18 Total Protein 5.6 g/dl (6.4-8.2) L 04/25/17 05:18 Albumin 2.6 g/dl (3.4-5.0) L D 04/25/17 05:18 TSH 0.60 uIU/ml (0.358-3.74) D 04/25/17 05:18 HOSPITAL COURSE: Date of Admission:04/24/17 Date of Discharge: 04/25/17 POD #1 s/p Right CEA. Post-operatively developed bradycardia (asymptomatic). He Cardiology was consulted and based on their exam and review of his pmhx recommend the following: HR slowly trending up. No pathologic features thus far. con't to hold coreg. Repeat EKG this am and if no new ischemic changes or conduction abnormalities and bp/hr remain stable --> safe to d/c with outpatient follow up with Dr. Sharp for further medication adjustment. Plan to resume coreg cr as outpatient at slightly lower dose (10 mg) once HR at home is > 65 bpm. He was admitted to ICU post-op for cont monitoring. Patient comtinues to ambulate unassisted. Dasha-operative IV ABX were administered. DVT prophylaxis was achieved with SCDs and early ambulation. The patient ambulated with Physical Therapy and no services were recommended upon discharge. Narcotic scripts were checked with [employer] [employer] prior to escribe. The discharge instructions and an oral pain management plan were reviewed with the patient. All questions answered. Above plan discussed with Dr. Gandhi and agreed. Minutes to complete discharge: 15 Visit type - Case Type Case Type: Scheduled Admission - New patient This patient is new to me today: Yes Date on this admission: 04/25/17
[2017-04-25 16:03] VITALS: BP 114/52; PULSE 60
--- NOTE | 2017-04-26 12:27 | PATH ---
Surgical Pathology Report Patient Name: BARBARA WILL [facility]. Rec. 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 Specimen(s) Received PLAQUE FROM RIGHT CAROTID ARTERY Clinical History Right carotid stenosis Final Diagnosis CAROTID PLAQUE, RIGHT, ENDARTERECTOMY: ATHEROMATOUS AND FOCALLY CALCIFIED PLAQUE. Electronically Signed Chelsea Haynes M.D. Gross Description Received in formalin labeled "plaque from right carotid," is a 3.5 x 1.5 x 1.0 cm albright-yellow, bifurcated portion of focally calcified plaque. 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 /04/25/2017 saudi/04/25/2017
== END 2017-04-25 16:49 | disposition home or self-care (01) | DRG 253 ==
LOC: JSAMEDAYSX 09:22 → EDSTATUS 10:00 → JICU 15:34
PROVIDERS: ADMIT Surgery; ATTEND Surgery
PROC: [UNRECOGNIZED PROCEDURE] (principal; 2017-04-24 11:00)
DX: I97.89 Other postprocedural complications and disorders of the circulatory system, not elsewhere classified (principal); I50.32 Chronic diastolic (congestive) heart failure; I65.23 Occlusion and stenosis of bilateral carotid arteries; I11.0 Hypertensive heart disease with heart failure; N18.9 Chronic kidney disease, unspecified; I25.10 Atherosclerotic heart disease of native coronary artery without angina pectoris; I25.2 Old myocardial infarction; I73.9 Peripheral vascular disease, unspecified; Z95.810 Presence of automatic (implantable) cardiac defibrillator; J44.9 Chronic obstructive pulmonary disease, unspecified; K21.9 Gastro-esophageal reflux disease without esophagitis; Z87.891 Personal history of nicotine dependence; Z86.73 Personal history of transient ischemic attack (TIA), and cerebral infarction without residual deficits; I45.10 Unspecified right bundle-branch block; I44.0 Atrioventricular block, first degree; Z85.038 Personal history of other malignant neoplasm of large intestine; Z85.46 Personal history of malignant neoplasm of prostate; R00.1 Bradycardia, unspecified; M10.9 Gout, unspecified
CPT/HCPCS: 36415; 80048; 80053; 82550; 83735; 84100; 84443; 84484; 85025; 85027; 86850; 86900; 86901; 88304-TC; 93005; 93010; 97116-GP; 97161-GP; J1644

== ENCOUNTER 2017-05-01 10:52 | Inpatient (IN) | payer OTHER, BC ==
[2017-05-01] MEDS ORDERED: SODIUM CHLORIDE 500 ML IV STA (12:03)
[2017-05-01] MEDS ORDERED: ACETAMINOPHEN 1000 MG/100 ML VIAL (NON FORMULARY) IVPB ONE (12:04)
[2017-05-01] MEDS ORDERED: ACETAMINOPHEN INJECTION 100 ML IVPB ONE (12:19)
--- NOTE | 2017-05-01 12:37 | PDOC ---
History of Present Illness - General Chief Complaint: Pain Stated Complaint: POST OP, NAUSEA/VOMITING Time Seen by Provider: 05/01/17 11:47 History Source: Patient Exam Limitations: No Limitations - History of Present Illness Initial Comments: 05/01/17 12:32 Patient is an 87M with extensive medical history, including carotid endarterectomy on 04/24 with ICU stay and discharge on 04/25, AAA repair, CAD, HTN, FL, PAD, COPD, GERD, prostate Ca, CABG, s/p suprapubic catheter here today complaining of abdominal pain. He says the pain started yesterday and is diffuse. He vomited today, nonbillious and nonbloody. Last bowel movement this morning, soft without blood. He denies pain or any other changes around suprapubic catheter. Denies chest pain and shortness of breath. Patient's daughter is a nurse and states that the small amount of discharge around his suprapubic catheter is at his baseline. Past History - Past Medical History Allergies/Adverse Reactions: Allergies Allergy/AdvReac Type Severity Reaction Status Date / Time beeswax Allergy Severe Verified 05/01/17 11:02 cephalexin monohydrate Allergy Severe Verified 05/01/17 11:02 [From Keflex] honey Allergy Severe Verified 05/01/17 11:02 Penicillins Allergy Severe Rash Verified 05/01/17 11:02 tetracycline [Tetracycline] Allergy Severe Rash Verified 05/01/17 11:02 Nitrofuran Analogues Allergy Verified 05/01/17 11:02 ondansetron HCl AdvReac Unknown Hives Verified 05/01/17 11:02 [From Zofran (as hydrochloride)] hydromorphone HCl AdvReac Verified 05/01/17 11:02 [From Dilaudid] papertape Allergy Uncoded 05/01/17 11:02 Home Medications: Ambulatory Orders Pantoprazole Sodium [Protonix -] 40 mg PO DAILY #0 tablet.ec 11/03/12 Carvedilol [Coreg] 12.5 mg PO DAILY 08/26/14 Cetirizine HCl [Zyrtec -] 10 mg PO DAILY 08/26/14 Fesoterodine Fumarate [Toviaz] 8 mg PO DAILY 08/26/14 Cranberry Fruit Extract [Theracran Hp For Kids] 36 mg PO DAILY 01/26/17 Aspirin [ASA -] 81 mg PO DAILY 07/05/16 Febuxostat [Uloric -] 40 mg PO DAILY 07/19/16 Albuterol Sulfate [Proventil HFA Inhaler -] 1 - 2 inh PO TID PRN 08/10/16 Propylene Glycol/Peg 400/Pf [Systane 0.3-0.4% Eye Drops] 2 each OP BID 08/10/16 Tiotropium [place] [Spiriva] 1 inh IH DAILY 08/10/16 Budesonide/Formeterol Fumarate [SYMBICORT 80/4.5mcg -] 2 puff IH BID 08/15/16 Atorvastatin Ca [Lipitor] 40 mg PO DAILY 04/05/17 Clopidogrel Bisulfate [Plavix] 75 mg PO DAILY 04/05/17 Cyclosporine [Restasis] 1 each OP BID 04/24/17 Acetaminophen W/ Codeine #3 [Tylenol # 3 -] 1 tab PO Q6H PRN #20 tablet MDD 4 Carvedilol Phosphate [Coreg Cr] 10 mg LT DAILY #30 cpmp.24hr 04/25/17 Anemia: Yes Asthma: No Cancer: Yes (prostate ca with radiation seeds, colon ca) Cardiac Disorders: Yes (FL WITH CABG, AAA REPAIR, FEM-POP BYPASS X 3) CVA: No COPD: Yes CHF: No Dementia: No Diabetes: No GI Disorders: (GERD) Disorders: Yes (Yes; suprapubic tube) HTN: Yes Hypercholesterolemia: Yes Liver Disease: Yes Seizures: No Thyroid Disease: No - Surgical History Abdominal Surgery: Yes (HERNIA, COLECTOMY) Appendectomy: No Cardiac Surgery: Yes Cholecystectomy: No Lung Surgery: No Neurologic Surgery: No Orthopedic Surgery: Yes (LEFT KNEE REPLACEMENT,RIGHT PARTIAL KNEE REPLACEMENT) - Immunization History Td Vaccination: Yes TDAP Vaccination: Yes Immunization Up to Date: Yes - Suicide/Smoking/Psychosocial Hx Smoking Status: No Smoking History: Former smoker Have you smoked in the past 12 months: No Number of Cigarettes Smoked Daily: 80 If you are a former smoker, when did you quit?: 1979 Information on smoking cessation initiated: No Hx Alcohol Use: No Drug/Substance Use Hx: No Substance Use Type: None Hx Substance Use Treatment: No Review of Systems - Review of Systems Comments:: 05/01/17 12:36 GENERAL/CONSTITUTIONAL: No fever or chills. HEAD, EYES, EARS, NOSE AND THROAT: No change in vision. No sore throat. CARDIOVASCULAR: No chest pain or shortness of breath RESPIRATORY: No cough, wheezing, or hemoptysis. GASTROINTESTINAL: Positive for nausea, vomiting. Negative for diarrhea or constipation. GENITOURINARY: No dysuria, frequency, or change in urination. MUSCULOSKELETAL: No joint or muscle swelling or pain. No neck or back pain. SKIN: No rash NEUROLOGIC: Positive for headache. Negative for vertigo, loss of consciousness, or change in strength/sensation. ALLERGIC/IMMUNOLOGIC: No hives or skin allergy. *Physical Exam - Vital Signs Last Vital Signs Temp Pulse Resp BP Pulse Ox 98.8 F 105 H 18 112/55 99 05/01/17 11:03 05/01/17 11:03 05/01/17 11:03 05/01/17 11:03 05/01/17 11:03 - Physical Exam Comments: 05/01/17 12:38 GENERAL: Awake, alert, and fully oriented, in no acute distress HEAD: No signs of trauma, normocephalic, atraumatic EYES: PERRLA, EOMI, sclera anicteric, conjunctiva clear ENT: Auricles normal inspection, hearing grossly normal, nares patent, oropharynx clear without exudates. Moist mucosa NECK: Normal ROM, supple, no lymphadenopathy, JVD, or masses LUNGS: No distress, speaks full sentences, clear to auscultation bilaterally HEART: Tachycardic, normal S1 and S2, no murmurs, rubs or gallops, peripheral pulses normal and equal bilaterally. ABDOMEN: Diffusely tender. Dorsey negative. Exlap scar, old and well healing. Suprapubic catheter, small amount of brown discharge. No guarding, no rebound. No masses EXTREMITIES: Normal inspection, Normal range of motion, no edema. No clubbing or cyanosis. NEUROLOGICAL: Cranial nerves II through XII grossly intact. Normal speech, no focal sensorimotor deficits ED Treatment Course - LABORATORY CBC & Chemistry Diagram: 05/01/17 12:44 05/01/17 14:03 - RADIOLOGY Radiology Studies Ordered: Category Date Time Status ABDOMEN CTA AOR & BLE RUNOFF [CT] Stat CT Scan 05/01/17 12:04 Ordered Medical Decision Making - Medical Decision Making 05/01/17 12:40 Patient is an 87M with extensive medical history, including carotid endarterectomy on 04/24 with ICU stay and discharge on 04/25, AAA repair, CAD, HTN, FL, PAD, COPD, GERD, prostate Ca, CABG, s/p suprapubic catheter here today with abdominal pain. Vital signs notable for tachycardia. Differential diagnosis includes, but is not limited to: AAA, mesenteric ischemia, sbo. Bedside ultrasound shows aorta with maximal caliber of 3.3cm. Will evaluate with cbc, cmp, lipase, ua, lactate, trop, cxr, ekg, pt/inr and cta abdomen. 05/01/17 14:30 Laboratory Tests 05/01/17 05/01/17 05/01/17 12:44 12:44 12:44 WBC 7.4 Hgb 10.8 L D Hct 32.7 L Plt Count 197 D Creatinine 1.7 H D Creat Clearance w eGFR 38.14 Lactic Acid 1.8 Troponin I < 0.02 Lipase 36 L CBC normal. Cr 1.7, GFR 38. Risks and benefits discussed with family and Dr Hawthorne, all agree to do CTA with IV contrast. Patient already hydrated with 500cc before contrast administration. Lactate normal. 05/01/17 15:42 CXR shows left lower atelectasis vs consolidation. 05/01/17 17:08 CT positive for SBO, AAA stable, cholelithiasis, two hernias with strangulation. 05/01/17 17:32 CT also shows possible pneumonia on right. CXR shows possible pneumonia on the left. Patient denies fevers, chills, cough, chest pain. Do not believe patient has a pneumonia that needs to be antibiosed. Signed out to Tiesha Oreilly to med/ surg. *DC/Admit/Observation/Transfer Diagnosis at time of Disposition: Small bowel obstruction - Discharge Dispostion Condition at time of disposition: Stable Admit: Yes - Referrals Referrals: Chelsea Odom MD [Primary Care Provider] - - Patient Instructions - Post Discharge Activity
[2017-05-01 13:02] LABS: BASO % 0.3 % (0-2.0); EOS % 1.9 % (0-4.5); HEMATOCRIT 32.7 % (35.4-49); HEMOGLOBIN 10.8 GM/dL (11.7-16.9); LYMPH % 5.9 % (8-40); MCH 28.2 pg (25.7-33.7); MCHC 33.1 g/dl (32.0-35.9); MEAN CELL VOLUME 85.2 fl (80-96); MEAN PLT VOLUME 7.9 fl (7.5-11.1); MONO % 10.4 % (3.8-10.2); NEUT % 81.5 % (42.8-82.8); PLATELET COUNT 197 K/MM3 (134-434); RBC 3.84 M/mm3 (4.00-5.60); RDW 16.4 % (11.9-15.9); WHITE BLOOD COUNT 7.4 K/mm3 (4.0-10.0)
--- NOTE | 2017-05-01 13:17 | PDOC ---
Attending Attestation - Resident Resident Name: Jerrell Winkler - ED Attending Attestation I have performed the following: I have examined & evaluated the patient, The case was reviewed & discussed with the resident, I agree w/resident's findings & plan, Exceptions are as noted - HPI HPI: 05/01/17 13:09 "The patient is an 87 year old male with a significant PMH of AAA repair, CAD (s /p CABG), recent carotid endarterectomy (discharged 04/25/2017), HTN, prior MO, PAD, COPD, GERD, prostate CA, and suprapubic catheter who presents to the emergency department with diffuse abdominal pain and NBNB vomiting beginning approximately yesterday. The patient also notes 3 episodes of soft stool since yesterday, the last being this morning. The patient denies any fevers or chills. He denies chest pain or shortness of breath. Pain is diffuse and not pulsatile in nature. Does not radiate. The patients home health aide denies any gross changes around the suprapubic catheter site. Allergies: Cephalexin monohydrate, Penicillins, Tetracycline, Nitrofuran analogues, Ondansetron HCl, Hydromorphone HCl, Papertape. PCP: Dr. Odom " - Physicial Exam PE: 05/01/17 13:09 "GENERAL: Awake, alert, and fully oriented, in no acute distress HEAD: No signs of trauma EYES: PERRLA, EOMI, sclera anicteric, conjunctiva clear ENT: Auricles normal inspection, hearing grossly normal, nares patent, oropharynx clear without exudates. Moist mucosa NECK: Nontender, no stepoffs, Normal ROM, supple, no lymphadenopathy, JVD, or masses LUNGS: Breath sounds equal, clear to auscultation bilaterally. No wheezes, and no crackles HEART: Regular rate and rhythm, normal S1 and S2, no murmurs, rubs or gallops ABDOMEN: + Diffusely tender, Soft, normoactive bowel sounds. No guarding, no rebound. No masses EXTREMITIES: Normal range of motion, no edema. No clubbing or cyanosis. No cords , erythema, or tenderness NEUROLOGICAL: Cranial nerves II through XII intact. 5/5 strength and sensation in all extremities, Normal speech, normal gait, normal cerebellar function SKIN: Warm, Dry, normal turgor, no rashes or lesions noted. " - Medical Decision Making 05/01/17 13:10 87 M with abdominal pain + N/V + diarrhea. Likely gastroenteritis. However, given diffuse tenderness, as well as h/o AAA repair, will obtain CTAP with IV contrast. - Labs - CTAP 05/01/17 17:42 CT shows SBO. Pt without any additional episodes of vomiting in ER. Will defer NG tube for now. Pt admitted to hospitalist.
[2017-05-01 13:18] LABS: ALBUMIN 2.6 g/dl (3.4-5.0); ANION GAP 15 (8-16); BILIRUBIN,TOTAL 0.6 mg/dL (0.2-1.0); BLOOD UREA NITROGEN 38 mg/dL (7-18); CALCIUM 8.4 mg/dL (8.5-10.1); CHLORIDE 105 mmol/L (98-107); CO2 20 mmol/L (21-32); CREATININE 1.7 mg/dL (0.7-1.3); GLUCOSE,RANDOM 124 mg/dL (74-106); LIPASE 36 U/L (73-393); POTASSIUM 4.1 mmol/L (3.5-5.1); SGOT/AST 16 U/L (15-37); SGPT/ALT 24 U/L (12-78); SODIUM 140 mmol/L (136-145); TOT PROT 6.6 g/dl (6.4-8.2)
[2017-05-01 13:21] LABS: ALK PHOS 101 U/L (45-117)
[2017-05-01 13:25] LABS: INR 1.19 (0.82-1.09); PROTHROMBIN TIME (PATIENT) 13.4 SEC (9.98-11.88)
[2017-05-01 15:00] LABS: ANION GAP 12 (8-16); BLOOD UREA NITROGEN 37 mg/dL (7-18); CALCIUM 7.7 mg/dL (8.5-10.1); CHLORIDE 108 mmol/L (98-107); CO2 20 mmol/L (21-32); CREATININE 1.5 mg/dL (0.7-1.3); GLUCOSE,RANDOM 108 mg/dL (74-106); SODIUM 140 mmol/L (136-145)
--- NOTE | 2017-05-01 15:45 | EKG ---
Test Reason : Blood Pressure : / mmHG Vent. Rate : 063 BPM Atrial Rate : 063 BPM P-R Int : 188 ms QRS Dur : 150 ms QT Int : 490 ms P-R-T Axes : 044 -13 019 degrees QTc Int : 501 ms NORMAL SINUS RHYTHM WITH SINUS ARRHYTHMIA RIGHT BUNDLE BRANCH BLOCK ABNORMAL ECG WHEN COMPARED WITH ECG OF 25-APR-2017 12:21, NO SIGNIFICANT CHANGE WAS FOUND Confirmed by HAYLIE CLAROS MD ([id number]) on 05/01/2017 3:45:19 PM Referred By: Confirmed By:HAYLIE CLAROS MD
--- NOTE | 2017-05-01 17:25 | HP ---
CHIEF COMPLAINT: Abdominal pain and vomiting PCP: Dr. Chelsea Odom, [facility] HISTORY OF PRESENT ILLNESS: 87 year-old male with a PMH significant for multiple abdominal surgeries including AAA repair (2003), and a right carotid endarterectomy 04/24/17 (this is POD #7). Last night patient developed abdominal pain. This morning, prior to coming to the ED, he had several episodes of vomiting. No episodes since his arrival. He had two very small, watery bowel movements today. Patient has a suprapubic catheter. He denies fever, sweats, chills. ER course was notable for: (1) Cr 1.7, baseline 1.2 (2) CXR: left basilar consolidation (3) CTAP: (1) SBO; (2) AAA stable; (3) mild RML opacity probably infiltrate Recent Travel: No PAST MEDICAL HISTORY: Hypertension Coronary artery disease COPD Severe carotid artery stenosis TIA Peripheral arterial disease GERD Abdominal adhesions Hernias Prostate cancer BPH Gout CKD PAST SURGICAL HISTORY: CABG x 3v AAA repair (2003) Endarterectomy Fem-pop bypasses x multiple Colectomy Suprapubic catheter Right CEA Social History: Smoking: Alcohol: Drugs: Family History: Allergies beeswax Allergy (Severe, Verified 05/01/17 11:02) cephalexin monohydrate [From Keflex] Allergy (Severe, Verified 05/01/17 11:02) honey Allergy (Severe, Verified 05/01/17 11:02) Penicillins Allergy (Severe, Verified 05/01/17 11:02) Rash tetracycline [Tetracycline] Allergy (Severe, Verified 05/01/17 11:02) Rash Nitrofuran Analogues Allergy (Verified 05/01/17 11:02) ondansetron HCl [From Zofran (as hydrochloride)] Adverse Reaction (Unknown, Verified 05/01/17 11:02) Hives as per daughter, pt had a reaction to zofran hydromorphone HCl [From Dilaudid] Adverse Reaction (Verified 05/01/17 11:02) "mental status changes" as per daughter papertape Allergy (Uncoded 05/01/17 11:02) HOME MEDICATIONS: Medication Instructions Recorded Pantoprazole Sodium [Protonix -] 40 mg PO DAILY #0 tablet.ec 11/03/12 Carvedilol [Coreg] 12.5 mg PO DAILY 08/26/14 Cetirizine HCl [Zyrtec -] 10 mg PO DAILY 08/26/14 Fesoterodine Fumarate [Toviaz] 8 mg PO DAILY 08/26/14 Cranberry Fruit Extract [Theracran 36 mg PO DAILY 03/17/16 Hp For Kids] Aspirin [ASA -] 81 mg PO DAILY 07/05/16 Febuxostat [Uloric -] 40 mg PO DAILY 07/19/16 Albuterol Sulfate [Proventil HFA 1 - 2 inh PO TID PRN 08/10/16 Inhaler -] Propylene Glycol/Peg 400/Pf 2 each OP BID 08/10/16 [Systane 0.3-0.4% Eye Drops] Tiotropium [place] [Spiriva] 1 inh IH DAILY 08/10/16 Budesonide/Formeterol Fumarate 2 puff IH BID 08/15/16 [SYMBICORT 80/4.5mcg -] Atorvastatin Ca [Lipitor] 40 mg PO DAILY 04/05/17 Clopidogrel Bisulfate [Plavix] 75 mg PO DAILY 04/05/17 Cyclosporine [Restasis] 1 each OP BID 04/24/17 Acetaminophen W/ Codeine #3 1 tab PO Q6H PRN #20 tablet MDD 4 04/25/17 [Tylenol # 3 -] Carvedilol Phosphate [Coreg Cr] 10 mg LT DAILY #30 cpmp.24hr 04/25/17 REVIEW OF SYSTEMS CONSTITUTIONAL: Absent: fever, chills, diaphoresis, generalized weakness, malaise, loss of appetite, weight change HEENT: Absent: rhinorrhea, nasal congestion, throat pain, throat swelling, difficulty swallowing, mouth swelling, ear pain, eye pain, visual changes CARDIOVASCULAR: Absent: chest pain, syncope, palpitations, irregular heart rate, lightheadedness , peripheral edema RESPIRATORY: Absent: cough, shortness of breath, dyspnea with exertion, orthopnea, wheezing, stridor, hemoptysis GASTROINTESTINAL: +abdominal pain, +vomiting +watery stools Absent: abdominal distension, constipation, melena, hematochezia GENITOURINARY: Absent: dysuria, frequency, urgency, hesitancy, hematuria, flank pain, genital pain MUSCULOSKELETAL: Absent: myalgia, arthralgia, joint swelling, back pain, neck pain SKIN: Absent: rash, itching, pallor HEMATOLOGIC/IMMUNOLOGIC: Absent: easy bleeding, easy bruising, lymphadenopathy, frequent infections ENDOCRINE: Absent: unexplained weight gain, unexplained weight loss, heat intolerance, cold intolerance NEUROLOGIC: Absent: headache, focal weakness or paresthesias, dizziness, unsteady gait, seizure, mental status changes, bladder or bowel incontinence PSYCHIATRIC: Absent: anxiety, depression, suicidal or homicidal ideation, hallucinations. PHYSICAL EXAMINATION Vital Signs - 24 hr 05/01/17 05/01/17 11:03 12:03 Temperature 98.8 F 98.0 F Pulse Rate 105 H Pulse Rate [ 66 Apical] Respiratory 18 19 Rate Blood Pressure 112/55 Blood Pressure 135/88 [Right Arm] O2 Sat by Pulse 99 98 Oximetry (%) GENERAL: Awake, alert, and fully oriented, in no acute distress. HEAD: Normal with no signs of trauma. EYES: Pupils equal, round and reactive to light, extraocular movements intact, sclera anicteric, conjunctiva clear. No lid lag. EARS, NOSE, THROAT: Ears normal, nares patent, oropharynx clear without exudates. Moist mucous membranes. NECK: Normal range of motion, supple without lymphadenopathy, JVD, or masses. LUNGS: Breath sounds equal, clear to auscultation bilaterally. No wheezes, and no crackles. No accessory muscle use. HEART: Regular rate and rhythm, normal S1 and S2 without murmur, rub or gallop. ABDOMEN: Soft, diffusely tender; well-healed vertical surgical incision; suprapubic catheter MUSCULOSKELETAL: Normal range of motion at all joints. No bony deformities or tenderness. No CVA tenderness. UPPER EXTREMITIES: 2+ pulses, warm, well-perfused. No cyanosis. No clubbing. No peripheral edema. LOWER EXTREMITIES: 2+ pulses, warm, well-perfused. No calf tenderness. No peripheral edema. NEUROLOGICAL: Cranial nerves II-XII intact. Normal speech. Laboratory Results - last 24 hr 05/01/17 05/01/17 05/01/17 12:44 12:44 12:44 WBC 7.4 RBC 3.84 L Hgb 10.8 L D Hct 32.7 L MCV 85.2 MCH 28.2 MCHC 33.1 RDW 16.4 H Plt Count 197 D MPV 7.9 Neutrophils % 81.5 Lymphocytes % 5.9 L Monocytes % 10.4 H Eosinophils % 1.9 D Basophils % 0.3 PT with INR 13.40 H INR 1.19 H Sodium 140 Potassium 4.1 Chloride 105 Carbon Dioxide 20 L Anion Gap 15 BUN 38 H D Creatinine 1.7 H D Creat Clearance w eGFR 38.14 Random Glucose 124 H Lactic Acid Calcium 8.4 L Total Bilirubin 0.6 D AST 16 D ALT 24 D Alkaline Phosphatase 101 D Creatine Kinase 38 L Troponin I < 0.02 Total Protein 6.6 Albumin 2.6 L Lipase 36 L 05/01/17 05/01/17 12:44 14:03 WBC RBC Hgb Hct MCV MCH MCHC RDW Plt Count MPV Neutrophils % Lymphocytes % Monocytes % Eosinophils % Basophils % PT with INR INR Sodium 140 Potassium 4.0 Chloride 108 H Carbon Dioxide 20 L Anion Gap 12 BUN 37 H Creatinine 1.5 H Creat Clearance w eGFR Random Glucose 108 H Lactic Acid 1.8 Calcium 7.7 L Total Bilirubin AST ALT Alkaline Phosphatase Creatine Kinase Troponin I Total Protein Albumin Lipase ASSESSMENT/PLAN 87 year-old male with a PMH significant for multiple abdominal surgeries including AAA repair (2003), and a right carotid endarterectomy 04/24/17 (this is POD #7). Admitted for SBO and possible HAP. SBO --05/01 CTA: left abdomen/pelvis SBO --NPO except meds --IV fluids --surgical consult Dr. Lucero requested r/o HAP --no fever, no leukocytosis --05/01 CT chest: mild RML opacity probably infiltrate --start Vanc, Zosyn Carotid artery stenosis s/p right carotid endarterectomy on 04/24/17 --POD #7, surgical michele in situ --surgical wound edges well-approximated, no erythema, edema, exudate --contact Dr. Gandhi to see if he wants to follow up with patient during this admission AAA repair 2003 --05/01 CTA: stable Hypertension --BP stable --coantinue carvedilol Coronary artery disease Peripheral arterial disease s/p multiple bypasses TIA --continue carvedilol, ASA, Plavix, Lipitor CKD --Cr 1.7-->1.5; baseline 1.2 --IV fluids COPD --continue Symbicort, Spiriva GERD --continue protonix Prostate cancer BPH Suprapubic catheter --continue Detrol Gout --continue Uloric FEN Fluids: D5NS@83mL/hr Electrolytes: replete as indicated Nutrition: NPO except meds DVT prophylaxis: subq heparin Physical therapy Dispo: continues to require inpatient care. Full code. Visit type - Emergency Visit Emergency Visit: Yes ED Registration Date: 05/01/17 Care time: The patient presented to the Emergency Department on the above date and was hospitalized for further evaluation of their emergent condition. - New Patient This patient is new to me today: Yes Date on this admission: 05/01/17 - Critical Care Critical Care patient: No Hospitalist Screening - Colonoscopy Questionnaire Colonoscopy Questionnaire: Colonoscopy Questionnaire - Patient: 50 - 75 years old and never had a screening colonoscopy: No History of colon or rectal polyps, or CA: No History of IBD, Crohn's disease or UC: No History of abdominal radiation therapy as a child: No - Relative: 1 with colon or rectal CA, or polyps at age 60 or younger: Unknown Colon or rectal CA diagnosed at age 45 or younger: Unknown Multiple relatives with colon or rectal CA: Unknown - Outcome: Screening Result: Negative Screen
[2017-05-01] MEDS ORDERED: ALBUTEROL SO4 18 GM HFA INHALER IH PRN (17:57)
[2017-05-01] MEDS ORDERED: VANCOMYCIN 1,250 MG in DEXTROSE 5%-WATER - 250 ML IVPB ONE (18:17)
[2017-05-01] MEDS: DEXTROSE 5%-NORMAL SALINE 1,000 ML IV SCH (18:56)
[2017-05-01 19:20] LABS: URINE APPEARANCE CLOUDY; URINE BILIRUBIN NEGATIVE (NEGATIVE); URINE BLOOD 1+ (NEGATIVE); URINE COLOR DKYELLOW; URINE GLUCOSE (UA) NEGATIVE (NEGATIVE); URINE KETONE NEGATIVE (NEGATIVE); URINE NITRITE NEGATIVE (NEGATIVE); URINE UROBILINOGEN NEGATIVE mg/dL (0.2-1.0)
[2017-05-01 19:24] LABS: URINE LEUK ESTERASE 1+ (NEGATIVE); URINE PROTEIN 1+ (NEGATIVE)
[2017-05-01 20:18] LABS: EPI CELLS RARE /HPF (FEW); URINE BACTERIA RARE /hpf (NONE SEEN); URINE MUCUS RARE
[2017-05-01] MEDS: PIPERACILLIN/TAZOB 2.25 GM 2.25 GM in DEXTROSE 5%-WATER - 50 ML IVPB SCH (21:35)
[2017-05-01] MEDS: BUDESONIDE/FORMETEROL FUMARATE 80/4.5 mcg INHALER IH SCH (21:36)
[2017-05-01] MEDS: HEPARIN NA (PORCINE) 5,000 UNITS/ML 1ML VIAL SQ SCH (21:36)
[2017-05-01] MEDS: ARTIFICIAL TEARS (POLYVINYL ALCOHOL 1.4%) OPTH DROPS OU SCH (21:36)
[2017-05-01] MEDS: ATORVASTATIN CA 40 MG TABLET (FP) PO SCH (21:36)
[2017-05-01] MEDS ORDERED: PATIENT'S OWN MEDICATION (NON-FORMULARY) (Propylene Glycol/Peg 400/Pf [Systane 0.3-0.4% Ey OP SCH (22:00)
[2017-05-01] MEDS ORDERED: PATIENT'S OWN MEDICATION (NON-FORMULARY) (Cyclosporine [Restasis] 1 EACH) OP SCH (22:00)
[2017-05-01] MEDS ORDERED: PT OWN MED DRAWER 7, Y5N ONE (22:09)
[2017-05-01 23:08] VITALS: BMI 26.6
[2017-05-02] MEDS: PIPERACILLIN/TAZOB 2.25 GM 2.25 GM in DEXTROSE 5%-WATER - 50 ML IVPB SCH (03:27)
[2017-05-02] MEDS ORDERED: ACETAMINOPHEN 1000 MG/100 ML VIAL (NON FORMULARY) IVPB ONE (03:32)
[2017-05-02] MEDS: HEPARIN NA (PORCINE) 5,000 UNITS/ML 1ML VIAL SQ SCH ×3 (05:47→21:43)
[2017-05-02 08:19] LABS: CALCIUM 7.5 mg/dL (8.5-10.1); CHLORIDE 110 mmol/L (98-107); POTASSIUM 3.4 mmol/L (3.5-5.1); SODIUM 143 mmol/L (136-145)
[2017-05-02 08:21] LABS: INR 1.21 (0.82-1.09); PROTHROMBIN TIME (PATIENT) 13.7 SEC (9.98-11.88)
[2017-05-02 08:23] LABS: ACTIVATED PTT 33.2 SECONDS (26.9-34.4)
[2017-05-02 08:26] LABS: ALK PHOS 73 U/L (45-117); ANION GAP 13 (8-16); BILIRUBIN,TOTAL 0.4 mg/dL (0.2-1.0); BLOOD UREA NITROGEN 31 mg/dL (7-18); CO2 20 mmol/L (21-32); CREATININE 1.5 mg/dL (0.7-1.3); GLUCOSE,RANDOM 91 mg/dL (74-106); MAGNESIUM 2.3 mg/dL (1.8-2.4); PHOSPHOROUS 2.4 mg/dL (2.5-4.9); SGOT/AST 11 U/L (15-37); SGPT/ALT 16 U/L (12-78); TOT PROT 5.1 g/dl (6.4-8.2)
[2017-05-02 08:33] LABS: BASO % 0.8 % (0-2.0); EOS % 8.5 % (0-4.5); HEMATOCRIT 27.2 % (35.4-49); LYMPH % 15.5 % (8-40); MCH 27.9 pg (25.7-33.7); MCHC 32.9 g/dl (32.0-35.9); MEAN CELL VOLUME 84.9 fl (80-96); MEAN PLT VOLUME 7.9 fl (7.5-11.1); MONO % 9.6 % (3.8-10.2); NEUT % 65.6 % (42.8-82.8); PLATELET COUNT 169 K/MM3 (134-434); RDW 16.3 % (11.9-15.9); WHITE BLOOD COUNT 5.8 K/mm3 (4.0-10.0)
--- NOTE | 2017-05-02 08:44 | CONSULT ---
- Consultation REQUESTING PROVIDER: Ravi Lucero - General Surgery CONSULT REQUEST: We have been asked to surgically evaluate this patient for abd pain/sbo PCP: Dr. Chelsea Odom, [facility] HPI: Called to ermelinda 87 yo male with PMHx noted below. Arrives at [facility] ED w/ c/o abd pain associated w/ n/v. States 2 days ago he developed abd pain (acute onset ). States he's never experienced this before. PMHx significant for AAA reapir ( 2003), Colectomy, Suprapubic Cath and abd wall hernia repair. His last bm was yesterday prior to coming to hospital (formed stool). Since coming to hospital, his n/v resolved. States he feels "bloated". No more abd discomfort. While in the ED, patient had an ABD/PELVIC CT which identified SBO within the left abd/pelvis. a 2.5 x 1.9 cm nonspecific irregular mesenteric soft tissue nodule is noted (previously seen on CT scan 06/22/16). A left inguinal hernia hernia containing non-dilated segment of sigmoid colon. Right inguinal hernia containing fat only. 2 cm right adrenal adenoma Denies fever, chills, constipation. Denies CP, SOB, palpitations. Denies dysuria /hematuria, CVA tenderness. PMHx: [place], HTN, CAD, COPD, Carotid stenosis, TIA, PAD, GERD, Inguinal hernia ( bilat), Abd wall hernia, Prostate CA, BPH, Gout, CKD, Anemia, Hypercholesterolemia PSHx: CABG x3, AAA repair (2003), Right CEA 04/24/17 (Hiram), Fem-pop bypasses x3, Colectomy, Suprapubic catheter. Left TKR, Right Partial Knee replacement Home Meds: Pantoprazole Sodium [Protonix -] 40 mg PO DAILY #0 tablet.ec 11/03/12 Carvedilol [Coreg] 12.5 mg PO DAILY 08/26/14 Cetirizine HCl [Zyrtec -] 10 mg PO DAILY 08/26/14 Fesoterodine Fumarate [Toviaz] 8 mg PO DAILY 08/26/14 Cranberry Fruit Extract [Theracran Hp For Kids] 36 mg PO DAILY 03/17/16 Aspirin [ASA -] 81 mg PO DAILY 07/05/16 Febuxostat [Uloric -] 40 mg PO DAILY 07/19/16 Albuterol Sulfate [Proventil HFA Inhaler -] 1 - 2 inh PO TID PRN 08/10/16 Propylene Glycol/Peg 400/Pf [Systane 0.3-0.4% Eye Drops] 2 each OP BID 08/10/16 Tiotropium [place] [Spiriva] 1 inh IH DAILY 08/10/16 Budesonide/Formeterol Fumarate [SYMBICORT 80/4.5mcg -] 2 puff IH BID 08/15/16 Atorvastatin Ca [Lipitor] 40 mg PO DAILY 04/05/17 Clopidogrel Bisulfate [Plavix] 75 mg PO DAILY 04/05/17 Cyclosporine [Restasis] 1 each OP BID 04/24/17 Acetaminophen W/ Codeine #3 [Tylenol # 3 -] 1 tab PO Q6H PRN #20 tablet MDD 4 Carvedilol Phosphate [Coreg Cr] 10 mg LT DAILY #30 cpmp.24hr 04/25/17 Allergies beeswax Allergy (Severe, Verified 05/01/17 11:02) cephalexin monohydrate [From Keflex] Allergy (Severe, Verified 05/01/17 11:02) honey Allergy (Severe, Verified 05/01/17 11:02) Penicillins Allergy (Severe, Verified 05/01/17 11:02) tetracycline [Tetracycline] Allergy (Severe, Verified 05/01/17 11:02) Nitrofuran Analogues Allergy (Verified 05/01/17 11:02) ondansetron HCl [From Zofran (as hydrochloride)] Adverse Reaction (Unknown, Verified 05/01/17 11:02) hydromorphone HCl [From Dilaudid] Adverse Reaction (Verified 05/01/17 11:02) papertape Allergy (Uncoded 05/01/17 11:02) ROS: All systems reviewed and considered negative except for what's contained in HPI. PE: GENERAL: Awake, alert, and fully oriented, in nad HEAD: nc. at. EYES: PERRL, sclera anicteric, conjunctiva clear. NECK: Normal ROM, supple without lymphadenopathy, right neck michele intact (no hematoma or signs of infection) LUNGS: cta bilat anteriorly HEART: rrr ABD: softly distended. hypoactive bowel sounds in all quadrants. No CVAT bilat. bilat inguinal hernias (asymptomatic) UE: 2+ pulses, warm, well-perfused. No cyanosis. Cap refill <2 seconds. No peripheral edema. LE: 2+ pulses, warm, well-perfused. No calf tenderness. No peripheral edema. NEURO: Normal speech, gait not observed. PSYCH: Cooperative. Good eye contact. Appropriate mood and affect. SKIN: Warm, dry, normal turgor, no rashes or lesions noted. Last Vital Signs Temp Pulse Resp BP Pulse Ox 97.6 F 52 L 18 99/48 96 05/02/17 06:00 05/02/17 06:00 05/02/17 06:00 05/02/17 06:00 05/01/17 21:34 CBC, BMP 05/02/17 06:30 Hepatic Panel Total Bilirubin 0.4 mg/dL (0.2-1.0) D 05/02/17 06:30 AST 11 U/L (15-37) L D 05/02/17 06:30 ALT 16 U/L (12-78) D 05/02/17 06:30 Alkaline Phosphatase 73 U/L (45-117) D 05/02/17 06:30 Albumin 2.0 g/dl (3.4-5.0) L D 05/02/17 06:30 INR, PTT INR 1.21 (0.82-1.09) H 05/02/17 07:00 Urine Test Results Urine Color Dky[place] 05/01/17 18:52 Urine Appearance Cloudy 05/01/17 18:52 Urine pH 6.0 (5.0-8.0) 05/01/17 18:52 Ur Specific [place] 1.020 (1.001-1.035) 05/01/17 18:52 Urine Protein 1+ (NEGATIVE) H 05/01/17 18:52 Urine Glucose (UA) Negative (NEGATIVE) 05/01/17 18:52 Urine Ketones Negative (NEGATIVE) 05/01/17 18:52 Urine Blood 1+ (NEGATIVE) H 05/01/17 18:52 Urine Nitrite Negative (NEGATIVE) 05/01/17 18:52 Urine Bilirubin Negative (NEGATIVE) 05/01/17 18:52 Ur Leukocyte Esterase 1+ (NEGATIVE) H D 05/01/17 18:52 Ur Epithelial Cells Rare /HPF (FEW) 05/01/17 18:52 Urine Bacteria Rare /hpf (NONE SEEN) 05/01/17 18:52 Urine Mucus Rare 05/01/17 18:52 Problem List - Problems (1) Small bowel obstruction Assessment/Plan: NPO IVF GI / DVT PPX OOB and ambulate Serial abd exams f/u ABD AXR Antiemetics PRN Tylenol for fever > 100.3F Awaiting bowel function to resume prior to beginning clear liquid diet Potassium is 3.4 --> replete CBC, BMP in AM Above plan discussed with Dr. Lucero agrees Code(s): K56.69 - OTHER INTESTINAL OBSTRUCTION * DO NOT USE * Visit type - Case Type Case Type: ED Admission - Emergency Emergency Visit: Yes ED Registration Date: 05/01/17 Care time: The patient presented to the Emergency Department on the above date and was hospitalized for further evaluation of their emergent condition. - New patient This patient is new to me today: Yes Date on this admission: 05/02/17
[2017-05-02] MEDS ORDERED: PIPERACILLIN/TAZOB 2.25 GM/50 ML PREMIX BAG IVPB SCH (10:00)
[2017-05-02] MEDS ORDERED: CARVEDILOL 12.5 MG TABLET (FP) PO SCH (10:00)
[2017-05-02] MEDS ORDERED: PATIENT'S OWN MEDICATION (NON-FORMULARY) (Fesoterodine Fumarate [Toviaz] 8 MG) PO SCH (10:00)
--- NOTE | 2017-05-02 10:14 | PN ---
Progress Note, Physician Chief Complaint: Pt sitting in chair in no acute distress. Still no flatus. Denies sob, chest pain, N/V/D. - Current Medication List Current Medications: Active Medications Albuterol Sulfate (Ventolin Hfa Inhaler -) 1 puff IH Q8H PRN PRN Reason: ASTHMA Artificial Tears (Artificial Tears) 2 drop OU BID [facility] Last Admin: 05/01/17 21:36 Dose: 2 drp Aspirin (Asa -) 81 mg PO DAILY [facility] Atorvastatin Calcium (Lipitor -) 40 mg PO HS [facility] Last Admin: 05/01/17 21:36 Dose: 40 mg Budesonide/Formoterol Fumarate (Symbicort 80/4.5mcg -) 2 puff IH BID [facility] Last Admin: 05/01/17 21:36 Dose: 2 puff Carvedilol (Coreg Cr -) 10 mg PO DAILY [facility] Clopidogrel Bisulfate (Plavix -) 75 mg PO DAILY [facility] Febuxostat (Uloric -) 40 mg PO DAILY [facility] Heparin Sodium (Porcine) (Heparin -) 5,000 unit SQ TID [facility] Last Admin: 05/02/17 05:47 Dose: 5,000 unit Dextrose/Sodium Chloride (D5-Ns -) 1,000 mls @ 83 mls/hr IV ASDIR [facility] Last Admin: 05/01/17 18:56 Dose: 83 mls/hr Potassium Chloride 10 meq/ (Sodium Chloride) 105 mls @ 105 mls/hr IVPB Q60M [facility] Stop: 05/02/17 12:29 Non-Formulary Medication (Cyclosporine [Restasis]) 1 each OP BID [facility] Pantoprazole Sodium (Protonix -) 40 mg PO DAILY [facility] Piperacillin/Tazobactam/Dextrose (Zosyn 2.25gm Ivpb (Premix)) 2.25 gm IVPB Q8H- IV [facility] Tiotropium [place] (Spiriva -) 1 puff IH DAILY [facility] Tolterodine Tartrate (Detrol La -) 4 mg PO DAILY [facility] - Objective Vital Signs: Vital Signs Temperature 97.9 F 05/02/17 09:36 Pulse Rate 48 L 05/02/17 09:36 Respiratory Rate 20 05/02/17 09:36 Blood Pressure 96/41 05/02/17 09:36 O2 Sat by Pulse Oximetry (%) 96 05/01/17 21:34 Constitutional: Yes: Well Nourished, No Distress Respiratory: Yes: Regular, Rales (bibasilar). No: SOB Gastrointestinal: Yes: Soft, Distention, Hypoactive Bowel Sounds. No: Tenderness, Vomiting ...Rectal Exam: Yes: Deferred Genitourinary: Yes: Other (suprapubic catheter in place) Musculoskeletal: Yes: WNL Edema: No Integumentary: Yes: Incision (right neck) Wound/Incision: Yes: Clean/Dry Neurological: Yes: WNL, Alert, Oriented Psychiatric: Yes: WNL, Alert, Oriented Labs: CBC, BMP 05/02/17 07:00 05/02/17 06:30 INR, PTT INR 1.21 (0.82-1.09) H 05/02/17 07:00 - ....Imaging Chest X-ray: Pending Problem List - Problems (1) Small bowel obstruction Assessment/Plan: partial sbo NPO antiemetics prn ambulate as tolerated awaiting bowel function to start clear liquids surgery consult appreciated Code(s): K56.69 - OTHER INTESTINAL OBSTRUCTION * DO NOT USE * (2) Atelectasis Assessment/Plan: right basilar on pa/lateral chest Incentive spirometer when awake no need for antibiotics at this point, pt afebrile, wbcs wnl, ua neg, blood cultures/uc pending will monitor Code(s): J98.11 - ATELECTASIS (3) Anemia Assessment/Plan: chronic, slight drop in h/h possibly secondary to ckd heme-occult ordered iron/tibc/vitb12/folate level ordered will monitor Code(s): D64.9 - ANEMIA, UNSPECIFIED Qualifiers: Anemia type: due to chronic kidney disease Chronic kidney disease stage: stage 3 (moderate) Qualified Code(s): N18.3 - Chronic kidney disease, stage 3 (moderate); D63.1 - Anemia in chronic kidney disease; D63.1 - Anemia in chronic kidney disease (4) CAD (coronary artery disease) Assessment/Plan: prior [place] with prior CABG, h/o AAA repair continue plavix and aspirin Code(s): I25.10 - ATHSCL HEART DISEASE OF [place] CORONARY ARTERY W/O ANG PCTRS Qualifiers: [place] vs. transplanted heart: [place] heart Associated angina: without angina (5) CHF (congestive heart failure) Assessment/Plan: diastolic, euvolemic adequate bp control Code(s): I50.9 - HEART FAILURE, UNSPECIFIED Qualifiers: Heart failure type: diastolic Heart failure chronicity: chronic Qualified Code(s): I50.32 - Chronic diastolic (congestive) heart failure (6) COPD (chronic obstructive pulmonary disease) Assessment/Plan: stable continue current management Code(s): J44.9 - CHRONIC OBSTRUCTIVE PULMONARY DISEASE, UNSPECIFIED (7) HTN (hypertension) Assessment/Plan: controlled, hypotensive here continue coreg Code(s): I10 - ESSENTIAL (PRIMARY) HYPERTENSION Qualifiers: Hypertension type: essential hypertension Qualified Code(s): I10 - Essential (primary) hypertension (8) PAD (peripheral artery disease) Assessment/Plan: s/p fem-pop x multiple Code(s): I73.9 - PERIPHERAL VASCULAR DISEASE, UNSPECIFIED (9) Hyperlipidemia Assessment/Plan: continue lipitor Code(s): E78.5 - HYPERLIPIDEMIA, UNSPECIFIED (10) CKD (chronic kidney disease) Assessment/Plan: acute on chronic improving ivf Code(s): N18.9 - CHRONIC KIDNEY DISEASE, UNSPECIFIED Qualifiers: Chronic kidney disease stage: stage 3 (moderate) Qualified Code(s): N18.3 - Chronic kidney disease, stage 3 (moderate) (11) S/P carotid endarterectomy Assessment/Plan: s/p right CEA on 04/24/17 incision cdi consulted Code(s): Z98.890 - OTHER SPECIFIED POSTPROCEDURAL STATES (12) Status post implantation of artificial urinary sphincter Assessment/Plan: suprapubic catheter in place pt managed by urology outpt Code(s): Z96.0 - PRESENCE OF UROGENITAL IMPLANTS (13) History of TIA (transient ischemic attack) Assessment/Plan: continue aspirin, plavix, lipitor Code(s): Z86.73 - PRSNL HX OF TIA (TIA), AND CEREB INFRC W/O RESID DEFICITS (14) History of colon cancer Assessment/Plan: s/o colon resection Code(s): Z85.038 - PERSONAL HISTORY OF MALIGNANT NEOPLASM OF LARGE INTESTINE
[2017-05-02] MEDS ORDERED: PT OWN MED DRAWER 7, Y5N ONE ×2 (11:30→21:25)
[2017-05-02] MEDS: TIOTROPIUM BROMIDE 18 MCG/INH (DEVICE W/ 5 CAPSULES) IH SCH (11:52)
[2017-05-02] MEDS: ARTIFICIAL TEARS (POLYVINYL ALCOHOL 1.4%) OPTH DROPS OU SCH ×2 (11:54→21:54)
[2017-05-02] MEDS: BUDESONIDE/FORMETEROL FUMARATE 80/4.5 mcg INHALER IH SCH ×2 (11:54→21:54)
[2017-05-02] MEDS: FEBUXOSTAT 40 MG TAB PO SCH (11:55)
[2017-05-02] MEDS: TOLTERODINE TARTRATE LA 4 MG CAP.SR.24H (FP) PO SCH (11:55)
[2017-05-02] MEDS: ASPIRIN 81 MG CHEWABLE TABLETS PO SCH (11:55)
[2017-05-02] MEDS: CLOPIDOGREL BISULFATE 75 MG TABLET (FP) PO SCH (11:55)
[2017-05-02] MEDS: PANTOPRAZOLE 40 MG TABLET (FP) PO SCH (11:55)
[2017-05-02] MEDS: CARVEDILOL PHOSPHATE CR 10 MG CAPSULE PO SCH (11:55)
[2017-05-02] MEDS: POTASSIUM CHLORIDE 10 MEQ in SODIUM CHLORIDE 100 ML IVPB SCH ×2 (11:56→13:30)
[2017-05-02] MEDS: DEXTROSE 5%-NORMAL SALINE 1,000 ML IV SCH ×2 (12:00→23:31)
[2017-05-02] MEDS: ATORVASTATIN CA 40 MG TABLET (FP) PO SCH (21:48)
[2017-05-02] MEDS: ACETAMINOPHEN WITH CODEINE 300MG/30MG TABLET PO PRN (23:28)
[2017-05-03] MEDS ORDERED: PT OWN MED DRAWER 7, Y5N ONE ×3 (04:21→20:56)
[2017-05-03] MEDS: HEPARIN NA (PORCINE) 5,000 UNITS/ML 1ML VIAL SQ SCH ×3 (06:24→21:26)
[2017-05-03 08:10] LABS: ANION GAP 11 (8-16); BLOOD UREA NITROGEN 23 mg/dL (7-18); CALCIUM 7.5 mg/dL (8.5-10.1); CHLORIDE 116 mmol/L (98-107); CO2 20 mmol/L (21-32); CREATININE 1.3 mg/dL (0.7-1.3); GLUCOSE,RANDOM 87 mg/dL (74-106); MAGNESIUM 2.3 mg/dL (1.8-2.4); PHOSPHOROUS 2.7 mg/dL (2.5-4.9); POTASSIUM 3.4 mmol/L (3.5-5.1); SODIUM 147 mmol/L (136-145)
--- NOTE | 2017-05-03 08:30 | CON.GU ---
Consult - History of Present Illness History of Present Illness: 87 yo male well known to me with h/o prostate cancer and urethral stricture disease. Managed with suprapubic tube. Was scheduled to be in office today to change SPT but admitted yesterday for abdominal pain. Urine grossly clear - Past Medical History PATIENT MONITOR: Yes: TIA Cardio/Vascular: Yes: CAD, HTN, [place], Other (PAD) Pulmonary: Yes: COPD. 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) Rheumatology: Yes: Gout - Past Surgical History Past Surgical History: Yes: AAA Repair, Bypass (LE), CABG (3v) - Alcohol/Substance Use Hx Alcohol Use: No History of Substance Use: reports: None - Smoking History Smoking history: Former smoker Have you smoked in the past 12 months: No Aproximately how many cigarettes per day: 80 If you are a former smoker, when did you quit?: 1979 - Social History Usual Living Arrangement: Alone ADL: Independent History of Recent Travel: No Home Medications - Allergies Allergies/Adverse Reactions: Allergies Allergy/AdvReac Type Severity Reaction Status Date / Time beeswax Allergy Severe Verified 05/01/17 11:02 cephalexin monohydrate Allergy Severe Verified 05/01/17 11:02 [From Keflex] honey Allergy Severe Verified 05/01/17 11:02 Penicillins Allergy Severe Rash Verified 05/01/17 11:02 tetracycline [Tetracycline] Allergy Severe Rash Verified 05/01/17 11:02 Nitrofuran Analogues Allergy Verified 05/01/17 11:02 ondansetron HCl AdvReac Unknown Hives Verified 05/01/17 11:02 [From Zofran (as hydrochloride)] hydromorphone HCl AdvReac Verified 05/01/17 11:02 [From Dilaudid] papertape Allergy Uncoded 05/01/17 11:02 - Home Medications Home Medications: Ambulatory Orders Pantoprazole Sodium [Protonix -] 40 mg PO DAILY #0 tablet.ec 11/03/12 Carvedilol [Coreg] 12.5 mg PO DAILY 08/26/14 Cetirizine HCl [Zyrtec -] 10 mg PO DAILY 08/26/14 Fesoterodine Fumarate [Toviaz] 8 mg PO DAILY 08/26/14 Cranberry Fruit Extract [Theracran Hp For Kids] 36 mg PO DAILY 03/17/16 Aspirin [ASA -] 81 mg PO DAILY 07/05/16 Febuxostat [Uloric -] 40 mg PO DAILY 07/19/16 Albuterol Sulfate [Proventil HFA Inhaler -] 1 - 2 inh PO TID PRN 08/10/16 Propylene Glycol/Peg 400/Pf [Systane 0.3-0.4% Eye Drops] 2 each OP BID 08/10/16 Tiotropium [place] [Spiriva] 1 inh IH DAILY 08/10/16 Budesonide/Formeterol Fumarate [SYMBICORT 80/4.5mcg -] 2 puff IH BID 08/15/16 Atorvastatin Ca [Lipitor] 40 mg PO DAILY 04/05/17 Clopidogrel Bisulfate [Plavix] 75 mg PO DAILY 04/05/17 Cyclosporine [Restasis] 1 each OP BID 04/24/17 Acetaminophen W/ Codeine #3 [Tylenol # 3 -] 1 tab PO Q6H PRN #20 tablet MDD 4 Carvedilol Phosphate [Coreg Cr] 10 mg LT DAILY #30 cpmp.24hr 04/25/17 Physical Exam- Vital Signs: Vital Signs Temperature 98.1 F 05/03/17 05:53 Pulse Rate 79 05/03/17 05:53 Respiratory Rate 18 05/03/17 05:53 Blood Pressure 139/88 05/03/17 05:53 O2 Sat by Pulse Oximetry (%) 96 05/01/17 21:34 Renal/: Yes: Other (SPT in place) Problem List - Problems (1) Urethral stricture Assessment/Plan: New 18fr SPT placed at bedside under sterile conditions and irrigates easily. Code(s): N35.9 - URETHRAL STRICTURE, UNSPECIFIED Qualifiers: Urethral stricture type: unspecified stricture type Qualified Code(s): N35.9 - Urethral stricture, unspecified
--- NOTE | 2017-05-03 09:18 | PN ---
Progress Note (short form) - Note Progress Note: Pt states that he had a large BM. Vital Signs Period Temp Pulse Resp BP Sys/Child Pulse Ox Last 24 Hr 97.9 F-98.1 F 48-79 18-20 96-139/41-88 GEN: Appears comfortable. Neck: Inc healing well, michele removed and steri-strips applied. No swelling/ masses or erythema noted ABD: soft, non-distended, non-tender CBC, BMP 05/03/17 06:00 A/P: 87 yo male s/p R CEA POD#9 with resolving PSBO Michele removed and steri strips applied, wound healing well Having bowel function, started clears, may advance as tolerated D/w Dr. Lucero and Dr. Odell
[2017-05-03] MEDS: ARTIFICIAL TEARS (POLYVINYL ALCOHOL 1.4%) OPTH DROPS OU SCH ×2 (09:58→21:26)
[2017-05-03] MEDS: BUDESONIDE/FORMETEROL FUMARATE 80/4.5 mcg INHALER IH SCH ×2 (10:01→21:26)
[2017-05-03] MEDS: PANTOPRAZOLE 40 MG TABLET (FP) PO SCH (10:01)
[2017-05-03] MEDS: TIOTROPIUM BROMIDE 18 MCG/INH (DEVICE W/ 5 CAPSULES) IH SCH (10:02)
[2017-05-03] MEDS: ASPIRIN 81 MG CHEWABLE TABLETS PO SCH (10:02)
[2017-05-03] MEDS: FEBUXOSTAT 40 MG TAB PO SCH (10:02)
[2017-05-03] MEDS: CLOPIDOGREL BISULFATE 75 MG TABLET (FP) PO SCH (10:02)
[2017-05-03] MEDS: CARVEDILOL PHOSPHATE CR 10 MG CAPSULE PO SCH (10:02)
[2017-05-03] MEDS: TOLTERODINE TARTRATE LA 4 MG CAP.SR.24H (FP) PO SCH (10:02)
[2017-05-03 11:32] LABS: BASO % 0.9 % (0-2.0); EOS % 9.2 % (0-4.5); HEMATOCRIT 26.5 % (35.4-49); LYMPH % 17.9 % (8-40); MCH 28.9 pg (25.7-33.7); MCHC 33.8 g/dl (32.0-35.9); MEAN CELL VOLUME 85.6 fl (80-96); MEAN PLT VOLUME 7.9 fl (7.5-11.1); MONO % 8.3 % (3.8-10.2); NEUT % 63.7 % (42.8-82.8); PLATELET COUNT 178 K/MM3 (134-434); RDW 16.3 % (11.9-15.9); WHITE BLOOD COUNT 5.2 K/mm3 (4.0-10.0)
--- NOTE | 2017-05-03 12:36 | PN ---
Progress Note, Physician Chief Complaint: Pt sitting in chair in no acute distress. had a bm today. tolerating clears. Denies sob, chest pain, N/V/D. - Current Medication List Current Medications: Active Medications Acetaminophen/Codeine Phosphate (Tylenol # 3 -) 1 tab PO Q6H PRN PRN Reason: PAIN Last Admin: 05/02/17 23:28 Dose: 1 tab Albuterol Sulfate (Ventolin Hfa Inhaler -) 1 puff IH Q8H PRN PRN Reason: ASTHMA Artificial Tears (Artificial Tears) 2 drop OU BID [facility] Last Admin: 05/03/17 09:58 Dose: 2 drp Aspirin (Asa -) 81 mg PO DAILY [facility] Last Admin: 05/03/17 10:02 Dose: 81 mg Atorvastatin Calcium (Lipitor -) 40 mg PO HS [facility] Last Admin: 05/02/17 21:48 Dose: 40 mg Budesonide/Formoterol Fumarate (Symbicort 80/4.5mcg -) 2 puff IH BID [facility] Last Admin: 05/03/17 10:01 Dose: 2 puff Carvedilol (Coreg Cr -) 10 mg PO DAILY [facility] Last Admin: 05/03/17 10:02 Dose: 10 mg Clopidogrel Bisulfate (Plavix -) 75 mg PO DAILY [facility] Last Admin: 05/03/17 10:02 Dose: 75 mg Febuxostat (Uloric -) 40 mg PO DAILY [facility] Last Admin: 05/03/17 10:02 Dose: 40 mg Heparin Sodium (Porcine) (Heparin -) 5,000 unit SQ TID [facility] Last Admin: 05/03/17 06:24 Dose: 5,000 unit Dextrose/Sodium Chloride (D5-Ns -) 1,000 mls @ 83 mls/hr IV ASDIR [facility] Last Admin: 05/02/17 23:31 Dose: 83 mls/hr Non-Formulary Medication (Cyclosporine [Restasis]) 1 each OP BID [facility] Pantoprazole Sodium (Protonix -) 40 mg PO DAILY [facility] Last Admin: 05/03/17 10:01 Dose: 40 mg Tiotropium [place] (Spiriva -) 1 puff IH DAILY [facility] Last Admin: 05/03/17 10:02 Dose: 1 puff Tolterodine Tartrate (Detrol La -) 4 mg PO DAILY [facility] Last Admin: 05/03/17 10:02 Dose: 4 mg - Objective Vital Signs: Vital Signs Temperature 98.3 F 05/03/17 10:00 Pulse Rate 56 L 05/03/17 10:00 Respiratory Rate 20 05/03/17 10:00 Blood Pressure 122/57 05/03/17 10:00 O2 Sat by Pulse Oximetry (%) 96 05/01/17 21:34 Constitutional: Yes: Well Nourished, No Distress Respiratory: Yes: WNL, Regular, Rales (bibasilar). No: SOB, Tachypnea, Wheezes Gastrointestinal: Yes: WNL, Normal Bowel Sounds, Soft, Abdomen, Obese, Tenderness. No: Distention Genitourinary: Yes: Other (suprapubic catheter) Extremities: Yes: WNL Edema: No Integumentary: Yes: Incision (right neck) Wound/Incision: Yes: Clean/Dry Neurological: Yes: WNL, Alert, Oriented Psychiatric: Yes: WNL, Alert, Oriented Labs: CBC, BMP 05/03/17 06:00 05/03/17 06:00 INR, PTT INR 1.21 (0.82-1.09) H 05/02/17 07:00 - ....Imaging Chest X-ray: Report Reviewed Problem List - Problems (1) Small bowel obstruction Code(s): K56.69 - OTHER INTESTINAL OBSTRUCTION * DO NOT USE * (2) Atelectasis Code(s): J98.11 - ATELECTASIS (3) Anemia Code(s): D64.9 - ANEMIA, UNSPECIFIED Qualifiers: Anemia type: due to chronic kidney disease Chronic kidney disease stage: stage 3 (moderate) Qualified Code(s): N18.3 - Chronic kidney disease, stage 3 (moderate); D63.1 - Anemia in chronic kidney disease; D63.1 - Anemia in chronic kidney disease (4) CAD (coronary artery disease) Code(s): I25.10 - ATHSCL HEART DISEASE OF [place] CORONARY ARTERY W/O ANG PCTRS Qualifiers: [place] vs. transplanted heart: [place] heart Associated angina: without angina (5) CHF (congestive heart failure) Code(s): I50.9 - HEART FAILURE, UNSPECIFIED Qualifiers: Heart failure type: diastolic Heart failure chronicity: chronic Qualified Code(s): I50.32 - Chronic diastolic (congestive) heart failure (6) COPD (chronic obstructive pulmonary disease) Code(s): J44.9 - CHRONIC OBSTRUCTIVE PULMONARY DISEASE, UNSPECIFIED (7) HTN (hypertension) Code(s): I10 - ESSENTIAL (PRIMARY) HYPERTENSION Qualifiers: Hypertension type: essential hypertension Qualified Code(s): I10 - Essential (primary) hypertension (8) PAD (peripheral artery disease) Code(s): I73.9 - PERIPHERAL VASCULAR DISEASE, UNSPECIFIED (9) Hyperlipidemia Code(s): E78.5 - HYPERLIPIDEMIA, UNSPECIFIED (10) CKD (chronic kidney disease) Code(s): N18.9 - CHRONIC KIDNEY DISEASE, UNSPECIFIED Qualifiers: Chronic kidney disease stage: stage 3 (moderate) Qualified Code(s): N18.3 - Chronic kidney disease, stage 3 (moderate) (11) S/P carotid endarterectomy Code(s): Z98.890 - OTHER SPECIFIED POSTPROCEDURAL STATES (12) Status post implantation of artificial urinary sphincter Code(s): Z96.0 - PRESENCE OF UROGENITAL IMPLANTS (13) History of TIA (transient ischemic attack) Code(s): Z86.73 - PRSNL HX OF TIA (TIA), AND CEREB INFRC W/O RESID DEFICITS (14) History of colon cancer Code(s): Z85.038 - PERSONAL HISTORY OF MALIGNANT NEOPLASM OF LARGE INTESTINE (15) UTI (urinary tract infection) Code(s): N39.0 - URINARY TRACT INFECTION, SITE NOT SPECIFIED Qualifiers: Urinary tract infection type: acute cystitis Hematuria presence: without hematuria Qualified Code(s): N30.00 - Acute cystitis without hematuria Assessment/Plan (1) Small bowel obstruction Assessment/Plan: partial sbo had a bm today tolerating clears, advanced to low fat diet antiemetics prn ambulate as tolerated surgery consult appreciated Code(s): K56.69 - OTHER INTESTINAL OBSTRUCTION * DO NOT USE * (2) Atelectasis Assessment/Plan: right basilar on pa/lateral chest Incentive spirometer when awake no need for antibiotics at this point, pt afebrile, wbcs wnl, ua neg, blood cultures/uc pending will monitor Code(s): J98.11 - ATELECTASIS (3) Anemia Assessment/Plan: chronic, slight drop in h/h possibly secondary to ckd heme-occult ordered iron/tibc/vitb12/folate level ordered will monitor Code(s): D64.9 - ANEMIA, UNSPECIFIED Qualifiers: Anemia type: due to chronic kidney disease Chronic kidney disease stage: stage 3 (moderate) Qualified Code(s): N18.3 - Chronic kidney disease, stage 3 (moderate); D63.1 - Anemia in chronic kidney disease; D63.1 - Anemia in chronic kidney disease (4) CAD (coronary artery disease) Assessment/Plan: prior [place] with prior CABG, h/o AAA repair continue plavix and aspirin Code(s): I25.10 - ATHSCL HEART DISEASE OF [place] CORONARY ARTERY W/O ANG PCTRS Qualifiers: [place] vs. transplanted heart: [place] heart Associated angina: without angina (5) CHF (congestive heart failure) Assessment/Plan: diastolic, euvolemic adequate bp control Code(s): I50.9 - HEART FAILURE, UNSPECIFIED Qualifiers: Heart failure type: diastolic Heart failure chronicity: chronic Qualified Code(s): I50.32 - Chronic diastolic (congestive) heart failure (6) COPD (chronic obstructive pulmonary disease) Assessment/Plan: stable continue current management Code(s): J44.9 - CHRONIC OBSTRUCTIVE PULMONARY DISEASE, UNSPECIFIED (7) HTN (hypertension) Assessment/Plan: controlled, hypotensive here continue coreg Code(s): I10 - ESSENTIAL (PRIMARY) HYPERTENSION Qualifiers: Hypertension type: essential hypertension Qualified Code(s): I10 - Essential (primary) hypertension (8) PAD (peripheral artery disease) Assessment/Plan: s/p fem-pop x multiple Code(s): I73.9 - PERIPHERAL VASCULAR DISEASE, UNSPECIFIED (9) Hyperlipidemia Assessment/Plan: continue lipitor Code(s): E78.5 - HYPERLIPIDEMIA, UNSPECIFIED (10) CKD (chronic kidney disease) Assessment/Plan: acute on chronic improved Code(s): N18.9 - CHRONIC KIDNEY DISEASE, UNSPECIFIED Qualifiers: Chronic kidney disease stage: stage 3 (moderate) Qualified Code(s): N18.3 - Chronic kidney disease, stage 3 (moderate) (11) S/P carotid endarterectomy Assessment/Plan: s/p right CEA on 04/24/17 incision cdi consulted Code(s): Z98.890 - OTHER SPECIFIED POSTPROCEDURAL STATES (12) Status post implantation of artificial urinary sphincter Assessment/Plan: suprapubic catheter in place pt managed by urology outpt Code(s): Z96.0 - PRESENCE OF UROGENITAL IMPLANTS (13) History of TIA (transient ischemic attack) Assessment/Plan: continue aspirin, plavix, lipitor Code(s): Z86.73 - PRSNL HX OF TIA (TIA), AND CEREB INFRC W/O RESID DEFICITS (14) History of colon cancer Assessment/Plan: s/o colon resection Code(s): Z85.038 - PERSONAL HISTORY OF MALIGNANT NEOPLASM OF LARGE INTESTINE (15) UTI (urinary tract infection) Assessment/Plan: UC w/ gram neg growth Levaquin started, dose renal adjusted Code(s): N39.0 - URINARY TRACT INFECTION, SITE NOT SPECIFIED Qualifiers: Urinary tract infection type: acute cystitis Hematuria presence: without hematuria Qualified Code(s): N30.00 - Acute cystitis without hematuria Dispo: Home tomorrow if tolerating diet
[2017-05-03] MEDS: ATORVASTATIN CA 40 MG TABLET (FP) PO SCH (21:26)
[2017-05-03] MEDS: ACETAMINOPHEN WITH CODEINE 300MG/30MG TABLET PO PRN (22:10)
[2017-05-04] MEDS: HEPARIN NA (PORCINE) 5,000 UNITS/ML 1ML VIAL SQ SCH (06:20)
[2017-05-04 08:12] LABS: SERUM IRON SATURATION 21 % (15-55); TOTAL IRON BINDING CAPACITY 112 ug/dL (250-450); UIBC 89 ug/dL (111-343)
[2017-05-04 08:18] VITALS: BP 110/56; PULSE 74; TEMP 97.7
[2017-05-04 08:19] LABS: BASO % 0.8 % (0-2.0); EOS % 7.9 % (0-4.5); HEMOGLOBIN 9.8 GM/dL (11.7-16.9); LYMPH % 16.4 % (8-40); MCH 28.3 pg (25.7-33.7); MCHC 32.6 g/dl (32.0-35.9); MEAN CELL VOLUME 86.8 fl (80-96); MEAN PLT VOLUME 7.8 fl (7.5-11.1); MONO % 7.8 % (3.8-10.2); NEUT % 67.1 % (42.8-82.8); PLATELET COUNT 195 K/MM3 (134-434); RBC 3.45 M/mm3 (4.00-5.60); RDW 16.3 % (11.9-15.9); WHITE BLOOD COUNT 6.4 K/mm3 (4.0-10.0)
[2017-05-04 08:42] LABS: ANION GAP 9 (8-16); BLOOD UREA NITROGEN 23 mg/dL (7-18); CALCIUM 7.6 mg/dL (8.5-10.1); CHLORIDE 116 mmol/L (98-107); CO2 20 mmol/L (21-32); GLUCOSE,RANDOM 81 mg/dL (74-106); POTASSIUM 3.6 mmol/L (3.5-5.1); SODIUM 145 mmol/L (136-145)
[2017-05-04 08:46] LABS: CREATININE 1.4 mg/dL (0.7-1.3)
[2017-05-04] MEDS ORDERED: POTASSIUM CHLORIDE TABS 20 MEQ TABLET.ER (FP) PO ONE (09:04)
[2017-05-04] MEDS ORDERED: PT OWN MED DRAWER 7, Y5N ONE (10:12)
[2017-05-04] MEDS: ARTIFICIAL TEARS (POLYVINYL ALCOHOL 1.4%) OPTH DROPS OU SCH (10:22)
[2017-05-04] MEDS: BUDESONIDE/FORMETEROL FUMARATE 80/4.5 mcg INHALER IH SCH (10:22)
[2017-05-04] MEDS: FEBUXOSTAT 40 MG TAB PO SCH (10:23)
[2017-05-04] MEDS: TIOTROPIUM BROMIDE 18 MCG/INH (DEVICE W/ 5 CAPSULES) IH SCH (10:23)
[2017-05-04] MEDS: CARVEDILOL PHOSPHATE CR 10 MG CAPSULE PO SCH (10:24)
[2017-05-04] MEDS: TOLTERODINE TARTRATE LA 4 MG CAP.SR.24H (FP) PO SCH (10:25)
[2017-05-04] MEDS: ASPIRIN 81 MG CHEWABLE TABLETS PO SCH (10:25)
[2017-05-04] MEDS: CLOPIDOGREL BISULFATE 75 MG TABLET (FP) PO SCH (10:25)
[2017-05-04] MEDS: PANTOPRAZOLE 40 MG TABLET (FP) PO SCH (10:25)
--- NOTE | 2017-05-04 12:58 | DS ---
Physical Examination Vital Signs: Vital Signs Temperature 97.7 F 05/04/17 08:00 Pulse Rate 74 05/04/17 08:00 Respiratory Rate 18 05/04/17 08:00 Blood Pressure 110/56 05/04/17 08:00 O2 Sat by Pulse Oximetry (%) 95 05/04/17 09:00 Constitutional: Yes: Well Nourished, No Distress Cardiovascular: Yes: WNL, Regular Rate and Rhythm Respiratory: Yes: Regular, CTA Bilaterally, Rales (bibasilar) Gastrointestinal: Yes: WNL, Normal Bowel Sounds, Soft. No: Distention, Tenderness Renal/: Yes: Other (suprapubic in place) Edema: No Neurological: Yes: WNL, Alert, Oriented Psychiatric: Yes: WNL, Alert, Oriented Labs: CBC, BMP 05/04/17 07:16 05/04/17 07:15 Discharge Summary Reason For Visit: SMALL BOWEL OBSTRUCTION Current Active Problems Atelectasis (Acute) CKD (chronic kidney disease) (Acute) History of TIA (transient ischemic attack) (Acute) History of colon cancer (Acute) Hyperlipidemia (Acute) S/P carotid endarterectomy (Acute) Small bowel obstruction (Acute) Status post implantation of artificial urinary sphincter (Acute) UTI (urinary tract infection) (Acute) Hospital Course: is an 87 year old male s/p right cea 04/24 who was admitted for SBO. Pt was seen and evaluated by surgery and was managed conservatively. Pt had a BM yesterday and has been tolerating regular diet. He reports he is feeling well today. Urine culture was positive with gram neg organism. Pt started on oral antibiotics x 7 days. Otherwise, pt medically cleared to be discharged home. Pt advised to follow up with providers as directed. Condition: Good - Instructions Diet, Activity, Other Instructions: resume prev activity as tolerated diet as tolerated antibiotics for 5 more days follow up with providers as directed f/u with PCP in 7 days Referrals: Sea Perez MD [Staff Physician] - 2 Weeks Chelsea Odom MD [Primary Care Provider] - 1 Week Delmar Gandhi MD [Staff Physician] - 2 Weeks Disposition: HOME - Home Medications Comprehensive Discharge Medication List: Ambulatory Orders Pantoprazole Sodium [Protonix -] 40 mg PO DAILY #0 tablet.ec 11/03/12 Cetirizine HCl [Zyrtec -] 10 mg PO DAILY 08/26/14 Fesoterodine Fumarate [Toviaz] 8 mg PO DAILY 08/26/14 Cranberry Fruit Extract [Theracran Hp For Kids] 36 mg PO DAILY 03/17/16 Aspirin [ASA -] 81 mg PO DAILY 07/05/16 Febuxostat [Uloric -] 40 mg PO DAILY 07/19/16 Albuterol Sulfate [Proventil HFA Inhaler -] 1 - 2 inh PO TID PRN 08/10/16 Propylene Glycol/Peg 400/Pf [Systane 0.3-0.4% Eye Drops] 2 each OP BID 08/10/16 Tiotropium [place] [Spiriva] 1 inh IH DAILY 08/10/16 Budesonide/Formeterol Fumarate [SYMBICORT 80/4.5mcg -] 2 puff IH BID 08/15/16 Atorvastatin Ca [Lipitor] 40 mg PO DAILY 04/05/17 Clopidogrel Bisulfate [Plavix] 75 mg PO DAILY 04/05/17 Cyclosporine [Restasis] 1 each OP BID 04/24/17 Acetaminophen W/ Codeine #3 [Tylenol # 3 -] 1 tab PO Q6H PRN #20 tablet MDD 4 Carvedilol Phosphate [Coreg Cr] 10 mg LT DAILY #30 cpmp.24hr 04/25/17 levoFLOXacin [Levaquin -] 250 mg PO DAILY@0600 5 Days #5 tablet 05/03/17 Lactobacillus Acidophilus [Acidophilus Lactobacillus] 1 each PO DAILY 5 Days #5 capsule 05/04/17
== END 2017-05-04 14:01 | disposition home or self-care (01) | DRG 389 ==
LOC: JER 10:52 → JERBED 17:33 → J6S 19:46
PROVIDERS: ADMIT Internal Medicine; ATTEND Nurse Practitioner Family
DX: K56.699 Other intestinal obstruction unspecified as to partial versus complete obstruction (principal); J98.11 Atelectasis; I13.0 Hypertensive heart and chronic kidney disease with heart failure and stage 1 through stage 4 chronic kidney disease, or unspecified chronic kidney disease; I50.32 Chronic diastolic (congestive) heart failure; N39.0 Urinary tract infection, site not specified; I25.10 Atherosclerotic heart disease of native coronary artery without angina pectoris; I25.2 Old myocardial infarction; J44.9 Chronic obstructive pulmonary disease, unspecified; K21.9 Gastro-esophageal reflux disease without esophagitis; Z95.1 Presence of aortocoronary bypass graft; Z88.0 Allergy status to penicillin; C61 Malignant neoplasm of prostate; M10.9 Gout, unspecified; N40.0 Benign prostatic hyperplasia without lower urinary tract symptoms; D64.9 Anemia, unspecified; E78.00 Pure hypercholesterolemia, unspecified; Z86.73 Personal history of transient ischemic attack (TIA), and cerebral infarction without residual deficits; I73.9 Peripheral vascular disease, unspecified; N18.3 Chronic kidney disease, stage 3 (moderate); Z85.038 Personal history of other malignant neoplasm of large intestine; Z87.891 Personal history of nicotine dependence; N35.9 Urethral stricture, unspecified
CPT/HCPCS: 36415; 71045-TC-FY; 71046-TC-FY; 74019-TC-FY; 74174-TC; 80048; 80053; 81003; 81015; 82550; 82607; 82728; 82746; 83540; 83550; 83605; 83690; 83735; 84100; 84484; 85025; 85610; 85730; 87040; 87086; 87186; 93005; 93010; 94010; 97116-GP; 97161-GP; 99285-25; J0131; J1644

== ENCOUNTER 2017-09-13 18:24 | Emergency (ER) | payer OTHER, BC ==
[2017-09-13] MEDS ORDERED: ACETAMINOPHEN 325 MG TABLET (FP) PO ONE (18:40)
[2017-09-13] MEDS ORDERED: LIDOCAINE 5% TOPICAL PATCH TP ONE (18:40)
--- NOTE | 2017-09-13 18:46 | PDOC ---
History of Present Illness - History of Present Illness Initial Comments: 09/13/17 19:08 The patient is a 87 year old male, with a significant past medical history of AAA repair, CAD (s/p CABG), carotid endarterectomy (discharged 04/25/2017), HTN, prior ID, PAD, COPD, GERD, prostate and colon CA post radiation and chronic suprapubic catheter, who presents to the emergency department s/p unwitnessed mechanical fall. As per patient he lost his footing while walking down some stairs and on the last step, fell on his right side on vinyl jose. He reports hitting his head but, denies any loss of consciousness. He ranks his pain a 4/10. He reports taking Oxycodone 2 hours prior to his arrival. He denies any change in sensation or tingling of his extremities or headache/ dizziness.. He denies any recent fevers, chills, headache or dizziness. He denies any recent nausea, vomit, diarrhea or constipation. He denies any recent chest pain or shortness of breath. He denies any recent dysuria, frequency, urgency or hematuria. Allergies: Cephalexin monohydrate, Penicillins, Tetracycline, Nitrofuran analogues, Ondansetron HCl, Hydromorphone HCl, Paper tape. Past surgical history: AAA repair, Triple bypass, Sampson catheter leg bag. Social History: Former smoker (Quit 40 years ago). Denies EtOH use and recreational drug use. Primary Care Physician: Dr. Odom <Kinga Rashid - Last Filed: 09/13/17 19:08> - General History Source: Patient Exam Limitations: No Limitations <Maritza Horne - Last Filed: 09/13/17 19:16> - General Chief Complaint: Injury Stated Complaint: TRIP AND FALL INJURY TO RIGHT EYEBROW RIGHT ARM ,R Past History <Kinga Rashid - Last Filed: 09/13/17 19:08> - Past Medical History Anemia: Yes Asthma: No Cancer: Yes (prostate ca with radiation seeds, colon ca) Cardiac Disorders: Yes (ID WITH CABG, AAA REPAIR, FEM-POP BYPASS X 3) CVA: No COPD: Yes CHF: No Dementia: No Diabetes: No GI Disorders: (GERD) Disorders: Yes (Yes; suprapubic tube) HTN: Yes Hypercholesterolemia: Yes Liver Disease: Yes Seizures: No Thyroid Disease: No - Surgical History Abdominal Surgery: Yes (HERNIA, COLECTOMY) Appendectomy: No Cardiac Surgery: Yes Cholecystectomy: No Lung Surgery: No Neurologic Surgery: No Orthopedic Surgery: Yes (LEFT KNEE REPLACEMENT,RIGHT PARTIAL KNEE REPLACEMENT) - Immunization History Td Vaccination: Yes TDAP Vaccination: Yes Immunization Up to Date: Yes - Suicide/Smoking/Psychosocial Hx Smoking Status: No Smoking History: Former smoker Have you smoked in the past 12 months: No Number of Cigarettes Smoked Daily: 80 If you are a former smoker, when did you quit?: 1979 Hx Alcohol Use: No Drug/Substance Use Hx: No Substance Use Type: None Hx Substance Use Treatment: No <Maritza Horne - Last Filed: 09/13/17 19:16> - Past Medical History Allergies/Adverse Reactions: Allergies Allergy/AdvReac Type Severity Reaction Status Date / Time beeswax Allergy Severe Verified 05/01/17 11:02 cephalexin monohydrate Allergy Severe Verified 05/01/17 11:02 [From Keflex] honey Allergy Severe Verified 05/01/17 11:02 Penicillins Allergy Severe Rash Verified 05/01/17 11:02 tetracycline [Tetracycline] Allergy Severe Rash Verified 05/01/17 11:02 Nitrofuran Analogues Allergy Verified 05/01/17 11:02 ondansetron HCl AdvReac Unknown Hives Verified 05/01/17 11:02 [From Zofran (as hydrochloride)] hydromorphone HCl AdvReac Verified 05/01/17 11:02 [From Dilaudid] papertape Allergy Uncoded 05/01/17 11:02 Home Medications: Ambulatory Orders Pantoprazole Sodium [Protonix -] 40 mg PO DAILY #0 tablet.ec 11/03/12 Cetirizine HCl [Zyrtec -] 10 mg PO DAILY 08/26/14 Fesoterodine Fumarate [Toviaz] 8 mg PO DAILY 08/26/14 Cranberry Fruit Extract [Theracran Hp For Kids] 36 mg PO DAILY 03/17/16 Aspirin [ASA -] 81 mg PO DAILY 07/05/16 Febuxostat [Uloric -] 40 mg PO DAILY 07/19/16 Albuterol Sulfate [Proventil HFA Inhaler -] 1 - 2 inh PO TID PRN 08/10/16 Propylene Glycol/Peg 400/Pf [Systane 0.3-0.4% Eye Drops] 2 each OP BID 08/10/16 Tiotropium [place] [Spiriva] 1 inh IH DAILY 08/10/16 Budesonide/Formeterol Fumarate [SYMBICORT 80/4.5mcg -] 2 puff IH BID 08/15/16 Atorvastatin Ca [Lipitor] 40 mg PO DAILY 04/05/17 Clopidogrel Bisulfate [Plavix] 75 mg PO DAILY 04/05/17 Carvedilol Phosphate [Coreg Cr] 12.5 mg PO DAILY 09/13/17 Cilostazol 100 mg PO BID 09/13/17 Review of Systems - Review of Systems Comments:: 09/13/17 19:08 GENERAL/CONSTITUTIONAL: No weakness. no sweats. HEAD, EYES, EARS, NOSE AND THROAT: No change in vision or hearing. CARDIOVASCULAR: No chest pain or palpitations, syncope or edema. +chest wall pain RESPIRATORY: No SOB, GASTROINTESTINAL No nausea/vomiting. No abdominal pain GENITOURINARY: No hematuria, dysuria, frequency, urgency or other changes. + chronic suprapubic catheter MUSCULOSKELETAL: No joint or muscle swelling or pain. No neck or back pain. SKIN: No rash or changes in skin color or lesions. NEUROLOGIC: No headache, vertigo, loss of consciousness, or change in strength/ sensation. No gait instability. ENDOCRINE: Not relevant HEMATOLOGIC/LYMPHATIC: No anemia. +easy bruising/bleeding ALLERGIC/IMMUNOLOGIC: No allergies All other systems reviewed and negative, or as documented in HPI. <Kinga Rashid - Last Filed: 09/13/17 19:08> *Physical Exam - Vital Signs Last Vital Signs Temp Pulse Resp BP Pulse Ox 97.9 F 68 20 154/56 97 09/13/17 18:25 09/13/17 18:25 09/13/17 18:25 09/13/17 18:25 09/13/17 18:25 - Physical Exam Comments: 09/13/17 19:09 General: Well appearing, awake and alert, NAD. HEENT: NCAT, PERRL, EOMI, clear conjunctiva, anicteric, moist mucus membranes, clear oropharynx. +ecchymosis to right lateral eyebrow. Neck: neck supple, FROM, no midline C spine tenderness Chest: +right anterolateral chest wall tenderness w/o ecchymosis or skin changes ; anterior sternotomy scar Resp: decreased BS on right. normal and even respirations, no respiratory distress CVS: RRR, 2+ peripheral pulses throughout, no peripheral edema Abdomen: soft, NTND, no peritoneal signs. +anterior midline scar; chronic suprapubic catheter in place with sampson bag Back: nontender, normal inspection and ROM MSK: no edema, GIORDANO x4, ROM intact. No clubbing or cyanosis. normal bulk and tone. Neuro: alert, oriented appropriately; no focal neurologic deficits. SILT, 5/5 distal and prox strength in all extrem. Skin: warm and well perfused, cap refill <2 sec, +ecchymosis to right prox lateral wrist on ulnar aspect, adjacent to elbow prox forearm <Kinga Rashid - Last Filed: 09/13/17 19:08> ED Treatment Course - RADIOLOGY Radiology Studies Ordered: Category Date Time Status HEAD CT WITHOUT CONTRAST [CT] Stat CT Scan 09/13/17 18:40 Ordered FOREARM- RIGHT [RAD] Stat Radiology 09/13/17 18:41 Ordered WRIST- RIGHT [RAD] Stat Radiology 09/13/17 18:40 Ordered <Maritza Horne - Last Filed: 09/13/17 19:16> Medical Decision Making - Medical Decision Making 09/13/17 19:03 A portion of this note was documented by scribe services under my direction. I have reviewed the details of the note, within reason, and agree with the documentation with the following case summary and management plan written by me. 87 year old male, with a significant past medical history of AAA repair, CAD (s/ p CABG), carotid endarterectomy (discharged 04/25/2017), HTN, prior ID, PAD, COPD , GERD, prostate and colon CA post radiation and chronic suprapubic catheter, who presents to the emergency department s/p unwitnessed mechanical fall, + bruising to right lateral eyebrow, right forearm and wrist; +right lateral chest wall tenderness w/o ecchymosis. at baseline mental status, minimal complaints. DDx. ICH, SDH, closed head injury; pneumothorax, hemothorax, rib fracture, radial/ulna fx. Contusions; clinically doubt intra abdominal pathology or infection. no prodromal symptoms. Vital signs reviewed, wnl. Plan: XR right chest/rib series, forearm and wrist films; CT head to r/o bleed given he is on plavix and elderly. pain control with lidoderm patch and tylenol. 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 Anton pending imaging results, clinical reeval and ultimate dispo 09/13/17 19:08 <Maritza Horne - Last Filed: 09/13/17 19:16> *DC/Admit/Observation/Transfer - Attestations Scribe Attestion: 09/13/17 19:09 Documentation prepared by Kinga Rashid, acting as vp medical for Maritza Horne MD. <Kinga Rashid - Last Filed: 09/13/17 19:08> <Maritza Horne - Last Filed: 09/13/17 19:16> Diagnosis at time of Disposition: Fall (on) (from) other stairs and steps, initial encounter Contusion, chest wall Qualifiers: Encounter type: initial encounter Laterality: right Qualified Code(s): S20.211A - Contusion of right front wall of thorax, initial encounter Contusion, arm, upper Qualifiers: Encounter type: initial encounter Laterality: right Qualified Code(s): S40.021A - Contusion of right upper arm, initial encounter Contusion of head Qualifiers: Encounter type: initial encounter Laterality: right - Discharge Dispostion Condition at time of disposition: Stable
[2017-09-13 18:57] VITALS: BP 154/56; PULSE 68; TEMP 97.9; BMI 26.6
[2017-09-13] MEDS ORDERED: ACETAMINOPHEN 325 MG TABLET (FP) ONE (19:06)
--- NOTE | 2017-09-13 21:38 | PDOC ---
*Physical Exam - Vital Signs Last Vital Signs Temp Pulse Resp BP Pulse Ox 97.9 F 68 20 154/56 97 09/13/17 18:25 09/13/17 18:25 09/13/17 18:25 09/13/17 18:25 09/13/17 18:25 ED Treatment Course - Medications Given in the ED: ED Medications Discontinued Medications Generic Name Dose Route Start Last Admin Trade Name Jenifer PRN Reason Stop Dose Admin Acetaminophen 650 mg 09/13/17 18:40 09/13/17 19:08 Tylenol - PO 09/13/17 18:41 650 mg ONCE ONE Administration Lidocaine 1 patch 09/13/17 18:40 09/13/17 19:44 Lidoderm Patch - TP 09/13/17 18:41 1 patch ONCE ONE Administration Medical Decision Making - Medical Decision Making 09/13/17 21:36 Care received at 1900 Briefly, patient presents after mechanical fall, is pending x-ray of wrist, ribs and CT had and CT chest. All imaging studies have returned negative. Patient ambulating in the emergency department with a steady gait. Denies any pain, requests DC home I discussed the physical exam findings, ancillary test results and final diagnoses with the patient. I answered all of the patient's questions. The patient was satisfied with the care received and felt comfortable with the discharge plan and treatment plan. The patient will call their primary care physician within 24 hours to arrange follow-up and will return to the Emergency Department with any new, persistent or worsening symptoms. *DC/Admit/Observation/Transfer Diagnosis at time of Disposition: Fall (on) (from) other stairs and steps, initial encounter Contusion, chest wall Qualifiers: Encounter type: initial encounter Laterality: right Qualified Code(s): S20.211A - Contusion of right front wall of thorax, initial encounter Contusion, arm, upper Qualifiers: Encounter type: initial encounter Laterality: right Qualified Code(s): S40.021A - Contusion of right upper arm, initial encounter Contusion of head Qualifiers: Encounter type: initial encounter Laterality: right - Discharge Dispostion Condition at time of disposition: Stable Decision to Admit order: No - Referrals - Patient Instructions Printed Discharge Instructions: How to Prevent Falls Additional Instructions: Follow up with your primary care doctor in 1-2 days. Return to emergency department if you have any new, worsening or concerning symptoms. - Post Discharge Activity - Attestations Physician Attestion: 09/13/17 21:43 I, Dr. Miguel Anton MD, attest that this document has been prepared under my direction and personally reviewed by me in its entirety. I further attest, that it accurately reflects all work, treatment, procedures and medical decision -making performed by me.
[2017-09-13] MEDS ORDERED: LIDOCAINE PATCH REMOVAL MC SCH (22:00)
== END 2017-09-13 22:08 | disposition home or self-care (01) ==
LOC: FER 18:24
DX: S40.021A Contusion of right upper arm, initial encounter (principal); W10.9XXA Fall (on) (from) unspecified stairs and steps, initial encounter; Y93.89 Activity, other specified; Y92.9 Unspecified place or not applicable; I25.10 Atherosclerotic heart disease of native coronary artery without angina pectoris; Z85.46 Personal history of malignant neoplasm of prostate; I10 Essential (primary) hypertension; E78.00 Pure hypercholesterolemia, unspecified; Z87.891 Personal history of nicotine dependence
CPT/HCPCS: 70450-TC; 71101-TC-RT-FY; 71250-TC; 73090-TC-RT-FY; 73110-TC-RT-FY; 99281-25